=== PATIENT | female | born 1955 | race Caucasian/White ===

== ENCOUNTER 2017-10-05 14:00 | Outpatient (RCR) | payer OTHER, SELFPAY | END 2017-10-05 14:01 | disposition home or self-care (01) | LOC: PT 14:00 | PROVIDERS: Family Provider Family Medicine; Visit Provider Orthopaedic Surgery | DX: M16.11 Unilateral primary osteoarthritis, right hip (principal) | CPT/HCPCS: 97110; 97112 ==

== ENCOUNTER 2017-10-07 15:32 | Emergency (ER) | payer OTHER, SELFPAY ==
[2017-10-07] VITALS (10 sets, daily range): BP systolic 123–154; BP diastolic 74–94; PULSE 56–87; RESP 16–18; TEMP 36.8; O2SAT 95–100; BMI 29.0
--- NOTE | 2017-10-07 15:57 | HMH.EDGENADL ---
ED Disposition Clinical Impression: Dislocation of hip prosthesis Qualifiers: Encounter type: initial encounter Qualified Code(s): T84.029A - Dislocation of unspecified internal joint prosthesis, initial encounter; Z96.649 - Presence of unspecified artificial hip joint Disposition: Xfer Short-Term Hosp Condition on Discharge: Good Referrals: Santiago Mathews MD [Primary Care Provider] - - Critical Care Critical Care Time: No Attestation: On 10/07/17, the high probability of a clinically significant, sudden or life threatening deterioration of the following system(s) required my full and direct attention, intervention and personal management. The time I documented below is in addition to time spent performing reported procedures but includes the following listed in this critical care notation. Medical Decision Making Vital Signs: 10/07/17 15:32 10/07/17 16:56 10/07/17 17:13 Temperature 98.2 F Temperature Source Oral Pulse Rate [Right Radial] 76 68 70 Respiratory Rate 16 16 18 Blood Pressure [Right Arm] 130/75 138/74 154/86 Blood Pressure Mean [Right Arm] 93 95 108 Blood Pressure Source [Right Arm] Automatic Cuff Automatic Cuff Blood Pressure Position [Right Arm] Supine Supine 02 Sat by Pulse Oximetry 95 96 98 Oxygen Delivery Method Room Air Room Air Nasal Cannula Oxygen Flow Rate (LPM) 2 10/07/17 17:17 10/07/17 17:20 10/07/17 17:25 Temperature Temperature Source Pulse Rate [Right Radial] 87 78 80 Respiratory Rate 16 16 18 Blood Pressure [Right Arm] 150/83 150/80 148/88 Blood Pressure Mean [Right Arm] 105 103 108 Blood Pressure Source [Right Arm] Automatic Cuff Automatic Cuff Automatic Cuff Blood Pressure Position [Right Arm] Supine Supine Supine 02 Sat by Pulse Oximetry 100 100 Oxygen Delivery Method Non-Rebreather Nasal Cannula Nasal Cannula Oxygen Flow Rate (LPM) 2 2 10/07/17 17:30 10/07/17 17:45 10/07/17 17:46 Temperature Temperature Source Pulse Rate [Right Radial] 80 65 56 L Respiratory Rate 18 18 16 Blood Pressure [Right Arm] 145/88 145/94 145/94 Blood Pressure Mean [Right Arm] 107 111 111 Blood Pressure Source [Right Arm] Automatic Cuff Automatic Cuff Blood Pressure Position [Right Arm] Supine Supine 02 Sat by Pulse Oximetry 98 99 Oxygen Delivery Method Nasal Cannula Nasal Cannula Oxygen Flow Rate (LPM) 2 2 Orders (Tests/Meds): ED MEDICATIONS Generic Name Dose Route Start Last Admin Trade Name Freq PRN Reason Stop Dose Admin Sodium Chloride 1,000 mls @ 500 mls/hr 10/07/17 16:45 Sod Chlor 0.9% 1000ml Bag IV 11/06/17 16:44 .Q2H ABDIEL Ketamine HCl 25 mg 10/08/17 17:17 Ketamine 500mg/10ml Vial IV 10/08/17 17:18 DAILY ONE Discontinued Medications Generic Name Dose Route Start Last Admin Trade Name Freq PRN Reason Stop Dose Admin Ketamine HCl 50 mg 10/08/17 17:13 Ketamine 500mg/10ml Vial IV 10/08/17 17:14 DAILY ONE Morphine Sulfate 4 mg 10/07/17 15:50 10/07/17 16:07 Morphine 4mg/Ml Syringe IV 10/07/17 15:51 4 mg ONCE ONE Administration Ondansetron HCl 4 mg 10/07/17 15:50 10/07/17 16:07 Zofran 4mg/2ml Vial IV 10/07/17 15:51 4 mg ONCE ONE Administration ORDERS Category Date Time Status Hip XR right minimum 2 views [XR hip RT 2-3V w/pelvis] Exams 10/07/17 17:28 Stop Req Stat CMP [Comprehensive Metabolic Panel] Stat Lab 10/07/17 18:03 Ordered Complete Blood Count Auto Diff Stat Lab 10/07/17 18:03 Ordered - Radiology Data #2 Image(s): Hip Image Reviewed: Yes I reviewed the patient's radiology results Dislocated prosthesis Post x-ray post reduction attempt: Unsuccessful reduction attempt - Sagar Inquiry Pt receiving controlled substance: Yes Sagar was queried for this patient: No Reason not queried -: Emergent pt cond-no time Risks and benefits of using a controlled substance: were not discussed with pt by me Medical Decision Making Narrative:
--- NOTE | 2017-10-07 16:00 | ED_ITS ---
ED Disposition Clinical Impression: Dislocation of hip prosthesis Qualifiers: Encounter type: initial encounter Qualified Code(s): T84.029A - Dislocation of unspecified internal joint prosthesis, initial encounter; Z96.649 - Presence of unspecified artificial hip joint Disposition: Xfer Short-Term Hosp Condition on Discharge: Good Referrals: Santiago Mathews MD [Primary Care Provider] - - Critical Care Critical Care Time: No Attestation: On 10/07/17, the high probability of a clinically significant, sudden or life threatening deterioration of the following system(s) required my full and direct attention, intervention and personal management. The time I documented below is in addition to time spent performing reported procedures but includes the following listed in this critical care notation. Medical Decision Making Vital Signs: 10/07/17 15:32 10/07/17 16:56 10/07/17 17:13 Temperature 98.2 F Temperature Source Oral Pulse Rate [Right Radial] 76 68 70 Respiratory Rate 16 16 18 Blood Pressure [Right Arm] 130/75 138/74 154/86 Blood Pressure Mean [Right Arm] 93 95 108 Blood Pressure Source [Right Arm] Automatic Cuff Automatic Cuff Blood Pressure Position [Right Arm] Supine Supine 02 Sat by Pulse Oximetry 95 96 98 Oxygen Delivery Method Room Air Room Air Nasal Cannula Oxygen Flow Rate (LPM) 2 10/07/17 17:17 10/07/17 17:20 10/07/17 17:25 Temperature Temperature Source Pulse Rate [Right Radial] 87 78 80 Respiratory Rate 16 16 18 Blood Pressure [Right Arm] 150/83 150/80 148/88 Blood Pressure Mean [Right Arm] 105 103 108 Blood Pressure Source [Right Arm] Automatic Cuff Automatic Cuff Automatic Cuff Blood Pressure Position [Right Arm] Supine Supine Supine 02 Sat by Pulse Oximetry 100 100 Oxygen Delivery Method Non-Rebreather Nasal Cannula Nasal Cannula Oxygen Flow Rate (LPM) 2 2 10/07/17 17:30 10/07/17 17:45 10/07/17 17:46 Temperature Temperature Source Pulse Rate [Right Radial] 80 65 56 L Respiratory Rate 18 18 16 Blood Pressure [Right Arm] 145/88 145/94 145/94 Blood Pressure Mean [Right Arm] 107 111 111 Blood Pressure Source [Right Arm] Automatic Cuff Automatic Cuff Blood Pressure Position [Right Arm] Supine Supine 02 Sat by Pulse Oximetry 98 99 Oxygen Delivery Method Nasal Cannula Nasal Cannula Oxygen Flow Rate (LPM) 2 2 Orders (Tests/Meds): ED MEDICATIONS Generic Name Dose Route Start Last Admin Trade Name Freq PRN Reason Stop Dose Admin Sodium Chloride 1,000 mls @ 500 mls/hr 10/07/17 16:45 Sod Chlor 0.9% 1000ml Bag IV 11/06/17 16:44 .Q2H ABDIEL Ketamine HCl 25 mg 10/08/17 17:17 Ketamine 500mg/10ml Vial IV 10/08/17 17:18 DAILY ONE Discontinued Medications Generic Name Dose Route Start Last Admin Trade Name Freq PRN Reason Stop Dose Admin Ketamine HCl 50 mg 10/08/17 17:13 Ketamine 500mg/10ml Vial IV 10/08/17 17:14 DAILY ONE Morphine Sulfate 4 mg 10/07/17 15:50 10/07/17 16:07 Morphine 4mg/Ml Syringe IV 10/07/17 15:51 4 mg ONCE ONE Administration Ondansetron HCl 4 mg 10/07/17 15:50 10/07/17 16:07
--- NOTE | 2017-10-07 16:08 | XR_ITS ---
XR hip RT 2-3V w/pelvis HISTORY: Patient fell likely dislocated ITS.REASON: possible disloc prosthesis ORDERING PHYSICIAN: Magnus Morton MD PATIENT AGE: 62 years COMPARISON: 07/19/2017 FINDINGS: Bilateral bipolar prostheses are present. The right femoral component of the prosthesis is dislocated anteriorly and superiorly out of the acetabular cup. No obvious fracture. IMPRESSION: Anterior and superior dislocation of the femoral component of the right hip bipolar prosthesis
--- NOTE | 2017-10-07 17:23 | XR_ITS ---
XR pelvis 1-2V HISTORY: Follow-up dislocated prosthesis ITS.REASON: f/u disloc redx attempt ORDERING PHYSICIAN: Magnus Morton MD PATIENT AGE: 62 years COMPARISON: Same day FINDINGS: AP view of the pelvis shows persistent dislocation of the right femoral prosthesis. Left dural prosthesis is unremarkable. IMPRESSION: Persistent dislocated right femoral prosthesis
--- NOTE | 2017-10-07 17:47 | PC.NURSE ---
Attempted to reduce Rt hip per Dr Gomez, Maxx RN and paramedics X2. Pt sedated with 50mg of Ketamine IV. Crash cart at . Unable to reduce Rt hip. Pt tolerated procedure well, vs remained stable. Pt alert and answering questions apropriately. Pt made aware of inability to reduce hip and asked if she would like to see ortho here or transfer to .
--- NOTE | 2017-10-07 18:00 | PC.NURSE ---
PAGING DR QUARLES OR SOMEONE FROM THE GROUP-PER JOHN
--- NOTE | 2017-10-07 18:05 | PC.NURSE ---
SHON SIMS speaking with Dr. Redding at [facility]
--- NOTE | 2017-10-07 18:18 | PC.NURSE ---
MD LEXI GRAY WITH DR PAIZ
[2017-10-07 18:32] LABS: Basophils % 0.2 % (0.1-2.0); Eosinophils # 0.1 K/mm3 (0.0-0.4); Eosinophils % 0.9 % (0.1-12.0); Hematocrit 38.7 % (37.0-47.0); Hemoglobin 12.3 g/dL (12.2-16.2); Lymphocytes # 1.4 K/mm3 (0.7-4.5); Lymphocytes % 20.4 K/mm3 (10-50); Mean Corpuscular HGB Conc 31.6 g/dL (31.8-35.4); Mean Corpuscular Hemoglobin 28.5 pg (27.0-31.2); Monocytes # 0.3 K/mm3 (0.1-1.0); Monocytes % 4.4 % (1.7-9.3); Neutrophils # 4.9 K/mm3 (1.8-7.8); Neutrophils % 74.1 % (37.0-80.0); Platelet Count 258 K/mm3 (142-424); Red Cell Distribution Width 13.2 % (11.5-17.5); White Blood Count 6.6 K/mm3 (4.8-10.8)
[2017-10-07 18:45] LABS: Alanine Aminotransferase 21 U/L (12-78); Albumin Level 3.2 gm/dL (3.4-5.0); Alkaline Phosphatase 95 U/L (46-116); Anion Gap 11.6 mEq/L (5-15); Aspartate Amino Transferase 15 U/L (15-37); Bilirubin,Total 0.2 mg/dL (0.2-1.0); Blood Urea Nitrogen 10 mg/dL (7-18); Calcium 8.1 mg/dL (8.5-10.1); Carbon Dioxide 26 mmol/L (21.0-32.0); Chloride 108 mmol/L (98-107); Creatinine Clearance Estimated 76 mL/min (0-300); Creatinine,Serum 0.78 mg/dL (0.55-1.02); Estimated Glomerular Filt Rate 75 ml/min (>60); GFR (African American) 90 ML/MIN (>60); Globulin 3.3 gm/dl (1.3-3.2); Glucose 110 mg/dL (74-106); Potassium 3.6 mmoL/L (3.5-5.1); Sodium 142 mmol/L (136-145); Total Protein,Serum 6.5 gm/dL (6.4-8.2)
--- NOTE | 2017-10-07 18:45 | PC.NURSE ---
Report called to CHOLO Sebastian on Bone and joint unit at [facility]. Dr Francois and Minda are accepting.
== END 2017-10-07 19:16 | disposition short-term general hospital (02) ==
PROVIDERS: Emergency Provider Emergency Medicine; Family Provider Family Medicine; PCP Family Medicine
DX: T84.029A Dislocation of unspecified internal joint prosthesis, initial encounter (principal); Z96.649 Presence of unspecified artificial hip joint
CPT/HCPCS: 72170; 73502; 80053; 85025; 96365; 96374; 96375; 96376; 99285; J2405

== ENCOUNTER 2017-11-09 13:00 | Outpatient (RCR) | payer OTHER, SELFPAY | END 2017-11-09 13:01 | disposition home or self-care (01) | LOC: PT 13:00 | PROVIDERS: Family Provider Family Medicine; PCP Family Medicine; Visit Provider Orthopaedic Surgery | DX: S73.004A Unspecified dislocation of right hip, initial encounter (principal) | CPT/HCPCS: 97010; 97014; 97110; 97116; G0283 ==

== ENCOUNTER → 2018-11-26 08:13 | Outpatient (CLI) | payer OTHER, SELFPAY ==
--- NOTE | 2018-11-26 08:17 | MM_ITS ---
MM Dig screening mamm BI w/CAD ORDERING PHYSICIAN : Santiago Mathews MD PATIENT AGE: 63 years GENDER: Female COMPARISON: July 2008 film screen study Patient doesn't recall where more recent mammogram was performed. If priors mammogram scant be found and available would be helpful for comparison to improve our screening diagnosis INDICATION: Routine SCREENING mammogram. No hormones no new complaints noncontributory family history TECHNIQUE: Standard CC and MLO images were obtained. R2 CAD reviewed. FINDINGS: Lower density breast with minimal residual fibroglandular elements and moderate generalized fatty replacement . No focal lesion. . No dominant mass nor suspicious calcifications. There is been significant regression of fibroglandular elements of progressive fatty replacement since July 2008 previous film screen studies. RIGHT BREAST:No focal areas of significant concern. Scattered minimal areas of asymmetry on one view dissipate on the other. Scattered benign small round dense calcifications Central right breast have developed in the interval. Not of concern. LEFT BREAST:No focal areas of significant concern. Scattered minimal areas of asymmetry on one view dissipate on the other. IMPRESSION: . No areas of significant concern in either breast. No malignancy evident radiographically. Bilateral follow-up in one year recommended. BI-RADS Category: 2 Benign Finding(s) RECOMMENDED FOLLOW-UP: 1YR 1 YEAR FOLLOW-UP (A letter has been sent to the patient regarding results of the study.)
== END ==
PROVIDERS: PCP Family Medicine; Visit Provider Family Medicine
DX: Z12.31 Encounter for screening mammogram for malignant neoplasm of breast (principal)
CPT/HCPCS: 77067

== ENCOUNTER 2019-04-26 09:30 | Outpatient (RCR) | payer OTHER, SELFPAY | END 2019-04-26 09:35 | disposition home or self-care (01) | LOC: PT 09:30 | PROVIDERS: Visit Provider Orthopaedic Surgery | DX: M25.552 Pain in left hip (principal); M70.72 Other bursitis of hip, left hip | CPT/HCPCS: 97010; 97012; 97014; 97033; 97035; 97110; 97163; 97164; G0283 ==

== ENCOUNTER 2019-11-26 14:57 | Emergency (ER) | payer MEDICARE, SELFPAY ==
[2019-11-26] VITALS (7 sets, daily range): BP systolic 140–160; BP diastolic 77–100; PULSE 62–85; RESP 18–20; TEMP 36.8–36.9; O2SAT 97–100; BMI 28.8
--- NOTE | 2019-11-26 15:06 | XR_ITS ---
PROCEDURE: XR HIP RT 2-3V W/PELVIS Patient Age:64Y CLINICAL INDICATION: DISLOCATION twisted body and then heard pop with dislocation at right hip. Right hip pain . History of recurrence right hip dislocation COMPARISON: PEL1V XR pelvis 1-2V from 10/07/2017 HIPCMRT XR hip RT 2-3V w/pelvis from 10/07/2017 FINDINGS: RIGHT HIP 2 VIEW: AP AND CROSS-TABLE LATERAL AP PELVIS-SINGLE VIEW These performed studies were reviewed, and reported together Bilateral hip replacements. Bipolar hip prosthesis at both both hips again evident as seen on multiple previous studies. However the rim of the right acetabular cup appears to have a different appearance versus 10/07/2017 pelvis and hip studies. There appears to be additional collar or ring about the rim of the right acetabular cup on today's image. This requires clinical correlation as I suspect it may have been revised since September 2017 the In either case on today's study there is again noted to be dislocation at the right hip . The prosthetic femoral head has again dislocated superiorly and anteriorly relative to the acetabular cup component of the prosthesis.. No acute fracture is evident at the osseous pelvis nor proximal femur. The medullary stem remains stable and intact Suspect urinary bladder is moderately distended IMPRESSION: Bilateral bipolar hip replacements/prostheses With dislocation of right hip prosthesis. Anterior superior dislocation of femoral head component vs acetabular cup component again evident Dictated by: Harsh Mcnally MD 11/27/2019 12:54 Electronically signed by Harsh Mcnally MD in [place] 11/27/2019 12:54
--- NOTE | 2019-11-26 15:25 | PC.NURSE ---
TIME OUT PROCEDURE PERFORM, JOSE EMMANUEL, JOHN EMMANUEL, AND JAY SIMS PRESENT AT BEDSIDE TO PERFORM REDUCTION OF DISLOCATION OF THE RIGHT HIP.
--- NOTE | 2019-11-26 15:30 | PC.NURSE ---
MD PUSHED A TOTAL OF 120MG OF PROPOFOL WITH 2 RN AT BEDSIDE.
--- NOTE | 2019-11-26 15:36 | XR_ITS ---
PROCEDURE: XR PELVIS 1-2V Patient Age:64Y CLINICAL INDICATION: POST REDUCTION OF RIGHT HIP Right hip pain recurring dislocation right hip prosthesis history COMPARISON: [id number] HIP RT 1-VIEW W/PELVIS IF PERF from 07/12/2017 [id number] HIP RT 2-3V W/PELVIS IF PERFOR from 07/19/2017 PEL1V XR pelvis 1-2V from 10/07/2017 HIPCMRT XR hip RT 2-3V w/pelvis from 10/07/2017 XR HIP RT 2-3V W/PELVIS from 11/26/2019 TECHNIQUE: XR Pelvis AP View FINDINGS: . SINGLE AP VIEW PELVIS: Accompanying history on this study states' Post Reduction Right Hip. ' However this single-view post reduction AP pelvis shows persistent dislocation of the femoral head component, dislocated from the acetabular component of this right hip prosthesis... I would note the acetabular component appears slightly different than 2018 exam and I suspect it may have been surgically revised in the interval-when compared to previous available September 2017 studies.. Today we see what appears to be an additional collar like ring about the inferior margin of the acetabular component-which may make the femoral head component more difficult to reduce .. Correlation with surgical history required A moderate distended bladder also incidentally noted Thus again to summarize there is persistent anterior and superior dislocation of the femoral component of the right hip prosthesis on this labeled post reduction image. IMPRESSION: Persistent dislocation of the femoral head component from the right hip prosthesis acetabular component. On this labeled ' post reduction film ' Note additional comments within body of report Dictated by: Harsh Mcnally MD 11/26/2019 15:54 Electronically signed by Harsh Mcnally MD in [place] 11/26/2019 15:54
--- NOTE | 2019-11-26 15:36 | PC.NURSE ---
CONFIRMED HIP WAS BACK IN PLACE PER XRAY
--- NOTE | 2019-11-26 15:42 | PC.NURSE ---
PT IS NOW AWAKE AND ALERT SPEAKING TO STAFF.
--- NOTE | 2019-11-26 16:13 | PC.NURSE ---
placed call to [facility] orthopedics for Dr Harris at [facility]
--- NOTE | 2019-11-26 16:30 | PC.NURSE ---
speaking with Dr Arora.
--- NOTE | 2019-11-26 16:34 | PC.NURSE ---
speaking with dr Johnson from [facility]
--- NOTE | 2019-11-26 16:35 | PC.NURSE ---
SPEAKING WITH DR PAIZ AT [facility]
--- NOTE | 2019-11-26 16:44 | HMH.EDLOEX ---
ED Disposition Clinical Impression: Dislocation of hip, right, closed Disposition: Xfer Short-Term Hosp Condition on Discharge: Good Instructions: DI for Moderate Sedation Additional Instructions: Patient is being transferred to [facility] under Dr. Perla the hospitalist. Referrals: Provider,Referral, [Primary Care Provider] - - Critical Care Critical Care Time: No Attestation: On 11/26/19, the high probability of a clinically significant, sudden or life threatening deterioration of the following system(s) required my full and direct attention, intervention and personal management. The time I documented below is in addition to time spent performing reported procedures but includes the following listed in this critical care notation. Medical Decision Making - Medical Records Medical records reviewed: Yes: I reviewed the patient's medical records. - Sagar Inquiry Pt receiving controlled substance: No Vital Signs: 11/26/19 15:00 11/26/19 15:25 11/26/19 15:30 Temperature 98.4 F Temperature Source Oral Pulse Rate [Right Radial] 82 70 85 Respiratory Rate 20 20 20 Blood Pressure [Right Arm] 141/87 H 160/90 H 150/95 H Blood Pressure Mean [Right Arm] 105 113 113 Blood Pressure Source [Right Arm] Automatic Cuff Blood Pressure Position [Right Arm] Supine 02 Sat by Pulse Oximetry 97 100 100 Oxygen Delivery Method Room Air Nasal Cannula Nasal Cannula Oxygen Flow Rate (LPM) 2 2 11/26/19 15:40 11/26/19 15:45 11/26/19 15:51 Temperature Temperature Source Pulse Rate [Right Radial] 68 64 62 Respiratory Rate 20 20 Blood Pressure [Right Arm] 148/100 H 140/85 140/98 H Blood Pressure Mean [Right Arm] 116 103 112 Blood Pressure Source [Right Arm] Automatic Cuff Blood Pressure Position [Right Arm] 02 Sat by Pulse Oximetry 100 100 100 Oxygen Delivery Method Nasal Cannula Nasal Cannula Nasal Cannula Oxygen Flow Rate (LPM) 2 2 - Lab Data Lab results reviewed: Yes: I reviewed the patient's lab results. Orders (Tests/Meds): ED MEDICATIONS Generic Name Dose Route Start Last Admin Trade Name Freq PRN Reason Stop Dose Admin Sodium Chloride 1,000 mls @ 999 mls/hr 11/26/19 15:45 11/26/19 15:25 Sod Chlor 0.9% 1000ml Bag IV 11/26/19 16:45 999 mls/hr .Q1H1M ABDIEL Administration Discontinued Medications Generic Name Dose Route Start Last Admin Trade Name Florentinq PRN Reason Stop Dose Admin Ondansetron HCl 4 mg 11/26/19 15:40 11/26/19 15:25 Zofran 4mg/2ml Vial IV 11/26/19 15:41 4 mg ONCE ONE Administration Propofol 120 mg 11/26/19 15:38 11/26/19 15:25 Diprivan 10mg/Ml 20ml Vial IV 11/26/19 15:39 120 mg ONCE ONE Administration ORDERS Category Date Time Status XR hip RT 2-3V w/pelvis Stat Exams 11/26/19 15:06 Taken - Radiology Data #1 Image(s): Hip Preliminary Findings: Abnormal (Anterior superior dislocation of the right hip) #2 Image(s): Hip Preliminary Findings: Abnormal (Postreduction film still shows anterior superior dislocation) Medical Decision Narrative: Patient's orthopedic that have done both of the hip replacements bilateral in the patient and also the revision and also reduce the previous anterior dislocation was Dr. Richmond Stanley at [facility] orthopedics at [facility]. I did speak to Dr. Morales and he stated that she needs general anesthesia to put the hip back into place. Patient be transferred subsequently to [facility] in [place]. Lower Extremity Injury HPI - General Chief Complaint: Extremity Injury, Lower Stated Complaint: right hip fx Time Seen by Provider: 11/26/19 16:00 Mode of Arrival: EMS Limitations: No Limitations Description of Symptoms (Recalled from ER Triage Doc. by RN): PT BROUGHT TO ED WITH EXTERNAL ROTATION OF THE RT HIP. PT DENIES FALL. PT STATES THAT SHE STOOD UP FROM THE COMMODE AND SHE FELT HER HIP POP OUT OF PLACE. PT REPORTS BILATERAL HIP REPLACEMENTS AND ADVISES THAT SHE HAS MCCORMACK
--- NOTE | 2019-11-26 16:45 | PC.NURSE ---
DR PAIZ AT [facility] ACCEPTED PT, ADVISED THEY WILL CALL US BACK WITH A BED
--- NOTE | 2019-11-26 17:52 | PC.NURSE ---
REPORT CALL[facility] TO A[facility] NOTIFIED OF TRANSPORT
== END 2019-11-26 18:27 | disposition short-term general hospital (02) ==
PROVIDERS: Emergency Provider Family Medicine
DX: S73.004A Unspecified dislocation of right hip, initial encounter (principal); X50.9XXA Other and unspecified overexertion or strenuous movements or postures, initial encounter; Y92.012 Bathroom of single-family (private) house as the place of occurrence of the external cause
CPT/HCPCS: 27265; 72170; 73502; 96365; 96375; 99285; J2405

== ENCOUNTER 2020-03-15 10:00 | Outpatient (RCR) | payer MEDICARE, SELFPAY | END 2020-03-15 10:05 | disposition home or self-care (01) | LOC: PT 10:00 | PROVIDERS: Visit Provider Orthopaedic Surgery | DX: M25.551 Pain in right hip (principal); Z96.641 Presence of right artificial hip joint | CPT/HCPCS: 97010; 97014; 97033; 97110; 97112; 97116; 97163; 97164; G0283 ==

== ENCOUNTER → 2021-04-24 11:14 | Outpatient (CLI) | payer MEDICARE, SELFPAY | PROVIDERS: PCP Family Medicine; Visit Provider Nurse Practitioner | DX: Z20.822 Contact with and (suspected) exposure to COVID-19 (principal) | CPT/HCPCS: C9803; U0003; U0005 ==

== ENCOUNTER 2025-06-19 10:10 | Outpatient (CLI) | payer MEDICARE, SELFPAY ==
--- OUTSIDE RECORDS SUMMARY | 2025-05-30 04:30 | XMS_ITS ---
Author Organization [facility] Address [address] [facility] [address] [place], [place] [id number] Care Team Providers Care Checker Product Design Name Role Phone Toni Eugene Primary Care Provider Mayra Mathews Unavailable [phone] Allergies No Known Allergies Results Component Value Reference Range Notes CBC Venipuncture (in house) Reviewed date:06/01/2025 01:01:55 PM Interpretation: Performing Lab: Notes/Report: wbc 4.9 3.5 - 10 lymph 19.2% 15 - 50 mid 7.3% 2 - 15 gran 73.5% 35 - 80 rbc 4.64 3.5 - 5.5 hgb 14.6 11.5 - 16.5 hct 43.6 35 - 55 mcv 94.1 75 - 100 mch 31.5 25 - 35 mchc 33.5 31 - 38 platlet 291 100 - 400 P-Comprehensive Metabolic Pa jaycee (CMP) Reviewed date:06/01/2025 01:01:55 PM Interpretation:normal Performing Lab: Notes/Report: Test performed by [facility] , [address], [place] [address] Karlos Toure MD, Pick Up Man CLIA: [id number] Sodium 139 135-145 mmol/L Potassium 4.5 3.5-5.3 mmol/L Chloride 103 97-108 mmol/L CO2 26 20-32 mmol/L Glucose 92 65-99 mg/dL BUN 11 8-23 mg/dL Creatinine 0.93 0.50-1.00 mg/dL Calcium 9.3 8.6-10.4 mg/dL eGFR by Creatinine 66 >59 mL/min/1.73m2 Protein 6.3 6.0-8.3 g/dL Albumin 4.1 3.5-5.3 g/dL Alkaline Phosphatase 76 35-121 IU/L ALT (SGPT) 17 <5-47 IU/L AST (SGOT) 16 <5-40 IU/L Bilirubin, Total 0.4 <0.2-1.2 mg/dL A/G Ratio 1.9 1.1-2.5 P-Lipid Panel Reviewed date:06/01/2025 01:01:55 PM Interpretation:LDL 156 Performing Lab: Notes/Report: Test performed by [facility], [address] , [facility], [place] [address] Karlos Toure MD, Pick Up Man CLIA: [id number] Lipid Panel Footnote See Below *Based on optimal reference values. Please refer to the DOS for additional information regarding diagnostic lipid reference ranges, patient management based on the recently updated lipid guidelines ([place] College [employer]iology/[place] Heart Association Task Force on Clinical Practice Guidelines (2018), and pediatric diagnostic lipid reference values (<18 years old). Total Cholesterol 256 <200 mg/dL Triglycerides 71 <150 mg/dL HDL Cholesterol 86 >50 mg/dL Total Cholesterol / HDL Ratio* 2.98 <3.99 Rati o Non-HDL Cholesterol 170 <130 mg/dL LDL Cholesterol (Calculation) 156 <100 mg/dL LDL / HDL Ratio* 1.81 <1.99 Ratio LDL Cholesterol Patient History Test Date: 05/30/2025 LDL Results: 156 Units: mg/dL % Change: - REASON FOR VISIT check up, Needs labs, mammogram, bone density screening, colon cancer screening, Tdap, shingles, pneumovax, & flu vaccines Medications Medication SIG (Take, Route, Frequency, Duration) Notes Start Date End Date Status Aspirin 81 MG 1 tab(s) orally once a day Active Immunizations Vaccine Route Administration Date Status Comme nts Fluzone High Dose (65yr and older) IM Intramuscular 05/30/2025 Administered Prevnar (PCV20) IM Intramuscular 05/30/2025 Administered Problems Problem Type SNOMED Code ICD Code Onset Dates Problem Status W/U Status Risk Notes Problem Dyslipidemia (008581497) Dyslipidemia (E78.5) Active confirmed Vital Signs Weight 170.2 lbs 05/30/2025 Blood pressure systolic 130 mm Hg 05/30/20 25 Blood pressure diastolic 78 mm Hg 025 Heart Rate 67 /min 05/30/2025 Height 66 in 05/30/2025 BMI 27.47 kg/m2 05/30/2025 Encounters Encounter Location Date Provider Diagnosis [facility] [address] [facility] [address] [place] [id number] 05/30/2025 Mayra Mathews Dyslipidemia E78.5 ; Encounter for immunization Z23 ; Breast cancer screening Z12.39 ; Colon cancer screening Z12.11 and BMI 27.0-27.9,adult Z68.27 Assessments Encounter Date Diagnosis (ICD Code) Assessment Notes Treatment Notes Treatment Clinical Notes Section Notes 05/30/2025 Dyslipidemia (ICD-10 - E78.5) 05/30/2025 Encounter for immunization (ICD-10 - Z23) 05/30/2025 Breast cancer screening (ICD-10 - Z12.39) 05/30/2025 Colon cancer screening (ICD-10 - Z12.11) 05/30/2025 BMI 27.0-27.9,adult (ICD-10 - Z68.27) Plan Of Treatment Pending Test Test Name Order Date Mammogram 05/30/2025 Cologuard 05/30/2025 Next Appt Details Follow Up: 6 Months, Reason: Progress Notes * Cynthia DIAZeDOB:[birth year] (69 yo F)Acc No.[id number]:05/30/2025 Progress Notes Patient: Shantelle SOSA Provider: Mayra Mathews M.D. :1955 A ge:69 Y S ex:Female Date:05/30/2025 Address:[id number] Pcp:Toni Eugene Subjective: * Chief Complaints: * 1 . Check up. 2. Needs labs, mammogram, bone density screening, colon cancer screening, Tdap, shingles, pneumovax, & flu vaccines. * HPI: H PI: She comes in for physical exam after a long absence from the practice. She has generally been healthy and has not needed medical care since her last office visit. Generally she feels well with no specific complaints today. She has not kept up with health maintenance issues and is due for colon cancer screening and mammogram. * ROS: D ERMATOLOGY: no R ya. n o H justin. G ASTROENTEROLOGY: no N ausea. n o V omiting. n o D iarrhea.? U ROLOGY: no B lood in urine. n o F requent urination. ? * Medical History: T IA, Patent Foramen Ovale, DJD. * Surgical History: t ubal ligation 1981, bunionectomy 2001, L4-L5 fusion 1987, right hip replacement 2009, repair of PFO - [facility] 01/2014, left hip replacement 06/2017, right hip replacement 08/2017. * Hospitalization/Major Diagno stic Procedure: s ee above , [facility]-slurred speech, decrease in focus, TIA 01/03/14, [facility]-heart cath 01/21. * Family History: F ather: , lung cancer. M other: , bone cancer. P aternal Grand Father: . P aternal Grand Mother: . M aternal Grand Father: . M ateorry Grand Mother: , hypertension, heart disease. S iblings: alive. 1 sister(s) . 2 son(s) - healthy. . 1 Brother related to cancer, also presently has a brother now that has been diagnosed with cancer. * Social History: C URRENT TOBACCO USE S moking Status: Patient does NOT smoke. C affeine: yes, frequency: 1-2 cups a day of coffee. Home smoke detector use: yes. Marital Status: . Past smoking status: no. Alcohol: No. * Medications: T aking Aspirin 81 MG Tablet Delayed Release 1 tab(s) orally once a day , Discontinued Calcium 500 MG 1 TAB ONCE DAILY , Notes to Pharmacist: *Please review and pick correct strength-formulation from [employer] options. If intended option is not shown, discontinue and re-order from Quick Search*, Discontinued Vitamin D3 25 MCG (1000 UT) Capsule 1 cap(s) orally once a day , Discontinued Alendronate Sodium 70 MG Tablet 1 tab(s) orally once a week , Medication List reviewed and reconciled with the patient * Allergies: N .K.D.A. Objective: * Vitals: W t: 170.2, Temp: 97,7, BP: 130/78, HR: 67, Nurse: pe, Ht: 66, BMI:27.47. * Examination: G eneral Examination: General Appearance: N AD. H EENT: s clera and conjunctiva clear, PERRLA, TM's normal, translucent. O ral cavity: n o lesions, mucosa moist and WNL, no erythema. N ching: s upple, no lymphadenopathy. H eart: R SR. L ungs: clear to auscultation. N eurologic Exam: n ormal cranial nerves II-XII sensory & motor WNL, DTR 2 plus. . S kin: n ormal, no rash. E xtremities: n o leg edema. Assessment: * Assessment: 1. D yslipidemia - E78.5 (Primary) 2 . E ncounter for immunization - Z23? 3. B reast cancer screening - Z12.39 4 . C olon cancer screening - Z12.11 5 . B WA 27.0-27.9,adult - Z68.27 Plan: * Treatment: Value Reference Range A /G Ratio 1.9 1.1-2.5 - * A lbumin 4.1 3.5-5.3 - g/dL * A lkaline Phosphatase 76 35-121 - IU/L * A LT (SGPT) 17 <5-47 - IU/L * A ST (SGOT) 16 <5-40 - IU/L * B ilirubin, Total 0.4 <0.2-1.2 - mg/dL * B UN 11 8-23 - mg/dL * C alcium 9.3 8.6-10.4 - mg/dL * C hloride 103 97-108 - mmol/L * C O2 26 20-32 - mmol/L * C reatinine 0.93 0.50-1.00 - mg/dL * G lucose 92 65-99 - mg/dL * P otassium 4.5 3.5-5.3 - mmol/L * S odium 139 135-145 - mmol/L * P rotein 6.3 6.0-8.3 - g/dL * e GFR by Creatinine 66 >59 - mL/min/1.73m2 * Mayra Mathews 06/01/2025 01:01:44 PM EDT > See phone encounter ?LAB: P-Lipid Panel (Collection Date & Time - 05/30/2025 09:14 AM)?LDL 156* Value Reference Range C holesterol / HDL Ratio 2.98 <3.99 - Ratio * C holesterol 256 H <200 - mg/dL * H DL Cholesterol 86 >50 - mg/dL * L DL Cholesterol (Calculation) 156 H <100 - mg/d L * L DL/HDL Ratio 1.81 <1.99 - Ratio * N on-HDL Cholesterol 170 H <130 - mg/dL * T riglycerides 71 <150 - mg/dL * L ipid Panel Footnote See Below - * Mayra Mathews 06/01/2025 01:01:44 PM EDT > See phone encounter ?LAB: CBC Venipuncture (in house) (Collection Date & Time - 05/30/2025)* Value Reference Range w bc 4.9 3.5 - 10 * l ymph 19.2% 15 - 50 * m id 7.3% 2 - 15 * g ran 73.5% 35 - 80 * r bc 4.64 3.5 - 5.5 * h gb 14.6 11.5 - 16.5 * h ct 43.6 35 - 55 * m cv 94.1 75 - 100 * m ch 31.5 25 - 35 * m chc 33.5 31 - 38 * p latlet 291 100 - 400 * Angela Agosto 05/30/2025 12 :45:30 PM EDT > Mayra Mathews 06/01/2025 01:01:44 PM EDT > See phone encounter 2.?Breast cancer screening?Imaging: Mammogram* Mary Sheehan 05/30/2025 01: 39:27 PM EDT > faxed to [facility] Scheduling 3.?Colon cancer screening?LAB: Cologuard * Immunizations: Fluzone High Dose (65yr and older) : 0.5 mL (Route: Intramuscular) given by DEMETRIS Pérez , Electric Meter Installer Helper on Right Deltoid (Encounter for immunization) Prevnar (PCV20) : 0.5 mL (Route: Intramuscular) given by DEMETRIS Pérez , Electric Meter Installer Helper on Left Deltoid (Encounter for immunization) * Procedure Codes: G 2211 Complex e/[place] [address] CBC WITH AUTO DIFF, 92965 VENIPUNCT, ROUTINE*, G8420 BMI<30 AND >=22 CALC & DOCU, G8783 BP SCR PRFRM RCMDD DEFIND SCR INTVL, G8752 MOST RECENT SYSTOLIC BP < 140MM HG, G8754 MOST RECENT DIASTOLIC BP < 90MM HG, 3075F SYST BP GE 130 - 139MM HG, 3078F DIAST BP < 80 MM HG, 1036F TOBACCO NON-USER * Follow Up: 6 Months * Images: Drawin05/30/25 [facility] Billing Information: * Visit Code: 44091 Office Visit, New Pt., Level 3. * Procedure Codes: G2211 Complex e/[place]. [address] CBC WITH AUTO DIFF. 94439 VENIPUNCT, ROUTINE*. G8420 BMI<30 AND >=22 CALC & DOCU. G8783 BP SCR PRFRM RCMDD DEFIND SCR INTVL. G8752 MOST RECENT SYSTOLIC BP < 140MM HG. G8754 MOST RECENT DIASTOLIC BP < 90MM HG. 3075F SYST BP GE 130 - 139MM HG. 3078F DIAST BP < 80 MM HG. 1036F TOBACCO NON-USER. * Electronic signature of Mayra Mathews MD on 06/19/2025 at 10:15 AM EST Sign off status: Pending * Provider: Mayra Mathews M.D. Date: Generated for Marcos chou/Bev/Yashransmitting on: 08/19/2024 10:15 AM EST History and Physical Notes * Examination Category Sub-Category Detail Notes Category Not es General Examination HEENT: sclera and c onjunctiva clear, PERRLA, TM's normal, translucent Heart: RSR Lungs: clear to auscultatio n Extremities: no leg edema General Appearance: NAD Skin: normal, no rash Neurologic Exam: normal cranial nerve s II-XII sensory & motor WNL, DTR 2 plus. Neck: supple, no lymphaden opathy Oral cavity: no lesions, mucosa m oist and WNL, no erythema Chest:
--- NOTE | 2025-06-19 10:14 | MM_ITS ---
PROCEDURE INFORMATION: Exam: MG Bilateral Screening 3D Mammography Exam date and time: 06/19/2025 10:22 AM Age: 69 years old Clinical indication: Screening examination TECHNIQUE: Imaging protocol: Bilateral Screening tomosynthesis and 2D mammography including computer-aided detection (CAD) when performed. COMPARISON: 1. MG SCBI MM Dig screening mamm BI w/CAD 11/26/2018 8:39 AM 2. MG MM Digitiz Mammo [employer] Systems Security Assessment 07/25/2008 10:02 AM FINDINGS: MAMMOGRAPHY: Breast composition: The breasts are almost entirely fatty. Mass: None. Architectural distortion: None. Calcifications: No suspicious calcifications. Asymmetric density: None. Skin thickening: None. Axillary adenopathy: None. IMPRESSION: No mammographic evidence of malignancy. Annual screening is recommended unless otherwise clinically indicated. ASSESSMENT: BI-RADS Category 1: Negative.
--- OUTSIDE RECORDS SUMMARY | 2025-06-19 10:14 | XMS_ITS | Encounter Summary ---
Author Organization [employer] ([place], [place], [place], [place]) Address [address] [place] [address] Care Team Providers Care Hay Sorter Name Role Phone Unavailable Primary Care Provider Unavailabl e Encounter Details Date Type Department Care Team (Late st Contact Info) Description 11/26/2019 Transcribed Document [facility] [address] [place] [address] ProviderMaribel MD [facility] [place] [address] Social History Tobacco Use Types Packs/Day Years Used Date Smoking Tobacco: Never Assessed Comments Unknown Sex and Gender Information Value Date Recorded Sex Assigned at Not on file Legal Sex Female 4:40 PM CDT Gender Identity Not on file Sexual Orientation Not on file documented as of this encounter Miscellaneous Notes * Cerner Conversion Note - Historical ProviderMD - 11/26/2019 9:24 PM CDT Education-(VTE) / (DVT) Entered On: 11/27/2019 0:52 EDT Performed On: 11/26/2019 21:24 EDT by Lynne Costello RN Teaching/Learning Assessment Barriers To Learning : None evident Individuals Taught : Patient Readiness to Learn : Cooperative Readiness to Learn : Explanation Learning Style Preferences Patient : Verbal explanation Lynne Costello RN - 11/27/2019 0:51 EDT Education Topics: VTE/DVT Education Topics: VTE/DVT Activity Limitations/Expectations : Verbalizes understanding VTE/DVT prophylaxis : Verbalizes understanding Medications : Verbalizes understanding Encourage early ambulation : Verbalizes understanding Lynne Costello RN - 11/27/2019 0:51 EDT documented in this encounter Plan of Treatment Not on file documented as of this encounter Visit Diagnoses Not on filedocumented in this encounter
--- OUTSIDE RECORDS SUMMARY | 2025-06-19 10:14 | XMS_ITS | Encounter Summary ---
Author Organization [employer] ([place], [place], [place], [place]) Address [address] [place] [address] Care Team Providers Care Manager Filter Name Role Phone Unavailable Primary Care Provider Unavailabl e Encounter Details Date Type Department Care Team (Late st Contact Info) Description 11/26/2019 Transcribed Document [facility] [address] [place] [address] ProviderMaribel [place] [address] Social History Tobacco Use Types Packs/Day Years Used Date Smoking Tobacco: Never Assessed Comments Unknown Sex and Gender Information Value Date Recorded Sex Assigned at Not on file Legal Sex Female 4:40 PM CDT Gender Identity Not on file Sexual Orientation Not on file documented as of this encounter Miscellaneous Notes * Cerner Conversion Note - Maribel ProviderMD - 11/26/2019 7:39 PM CDT Meds to Bed Enrollment Entered On: 11/28/2019 12:38 EDT Performed On: 11/26/2019 19:39 EDT by Logan Plata CONGRESSIONAL REPRESENTATIVE LEAD Meds to Bed Enrollment Patient Enrollment Decision: : No/do not enroll in meds to bed program Reason for Declining Meds to Bed Program: : Other: NA Logan Plata CONGRESSIONAL REPRESENTATIVE LEAD - 11/28/2019 12:38 EDT documented in this encounter Plan of Treatment Not on file documented as of this encounter Visit Diagnoses Not on filedocumented in this encounter
--- OUTSIDE RECORDS SUMMARY | 2025-06-19 10:14 | XMS_ITS | Encounter Summary ---
Author Organization [employer] ([place], [place], [place], [place], [place]) Address [address] [place] [address] Care Team Providers Care Social Worker Psychiatric Name Role Phone Unavailable Primary Care Provider Unavailabl e Encounter Details Date Type Department Care Team (Late st Contact Info) Description 11/30/2019 Transcribed Document [facility] [address] [place] [address] ProviderMaribel MD [address] [place] [address] Social History Tobacco Use Types Packs/Day Years Used Date Smoking Tobacco: Never Assessed Comments Unknown Sex and Gender Information Value Date Recorded Sex Assigned at Not on file Legal Sex Female 4:40 PM CDT Gender Identity Not on file Sexual Orientation Not on file documented as of this encounter Miscellaneous Notes * Cerner Conversion Note - Historical ProviderMD - 11/30/2019 5:00 AM CDT Chart Check - Review Order Profile Entered On: 11/30/2019 4:41 EDT Performed On: 11/30/2019 5:00 EDT by Valerie Escobar RN Chart Check Powerplans Initiated/Discontinued as Appropriate : Yes All Active Orders Reviewed : Yes Valerie Escobar RN - 11/30/2019 4:41 EDT documented in this encounter Plan of Treatment Not on file documented as of this encounter Visit Diagnoses Not on filedocumented in this encounter
--- OUTSIDE RECORDS SUMMARY | 2025-06-19 10:14 | XMS_ITS | Clinical Summary ---
Author Organization [facility] Address [address] [id number] Care Team Providers Care Stabilizing Machine Operator Name Role Phone Santiago Mathews MD Primary Care Provider [phone] Family History Medical History Relation Name Comments Other cancer Father Other cancer Mother Relation Name Status Comments Father Mother Social History Tobacco Use Types Packs/Day Years Used Date Smoking Tobacco: Passive Smo ke Exposure - Never Smoker Alcohol Use Standard Drinks/Week Comments No 0 (1 standard drink = 0.6 oz pur e alcohol) Comments Unknown Sex and Gender Information Value Date Recorded Sex Assigned at Not on file Legal Sex Female 8:04 PM EDT Gender Identity Not on file Sexual Orientation Not on file Last Filed Vital Signs Vital Sign Reading Time Taken Comments Blood Pressure - - Pulse - - Temperature - - Respiratory Rate - - Oxygen Saturation - - Inhaled Oxygen Concentration - - Weight 89.4 kg (197 lb 0.1 oz) 12/22/2016 11:56 AM EDT Height 171.5 cm (5' 7.5 ) 12/22/2016 11:56 AM ED T Body Mass Index 30.4 12/22/2016 11:56 AM EDT Plan of Treatment Not on file Care Teams Stabilizing Machine Operator Relationship Specialty Start Date End Date Santiago Mathews MD [address] [place] [address] [place], [place] [id number] PCP - General 12/21/20
--- OUTSIDE RECORDS SUMMARY | 2025-06-19 10:14 | XMS_ITS | Encounter Summary ---
Author Organization [employer] ([place], [place], [place], [place], [place]) Address [address] [place] [address] Care Team Providers Care Church Official Name Role Phone Unavailable Primary Care Provider Unavailabl e Encounter Details Date Type Department Care Team (Late st Contact Info) Description 11/27/2019 Transcribed Document [facility] [place] [facility] [place] [address] ProviderMaribel MD [facility] [place] [address] Social History Tobacco Use Types Packs/Day Years Used Date Smoking Tobacco: Never Assessed Comments Unknown Sex and Gender Information Value Date Recorded Sex Assigned at Not on file Legal Sex Female 4:40 PM CDT Gender Identity Not on file Sexual Orientation Not on file documented as of this encounter Miscellaneous Notes * Cerner Conversion Note - Maribel Batista MD - 11/27/2019 4:06 PM CDT Patient: SHANTELLE DIAZ Age: 64 Years Sex: Female : 1955 *Operation Hip Total Revision, Indication for Surgery Recurrent instability right hip dislocation *Preoperative Diagnosis reaccurting dislocated rigjht hip *Postoperative Diagnosis reaccurting dislocated rigjht hip *Surgeon(s) Primary Surgeon JULIO STEWART MD-ORT (Surgeon/Proceduralist, First) *Procedure Narrative Implants Biomet G7 cup size 56 with a dual mobility liner size F a Warner 12 x 14 head +8 28 mm with a Maty Biomet to mobility outer head 40 4F Intraoperative fluoroscopy was used during the case to assist in implant position Procedure Revision right total hip acetabular component, open reduction of dislocated right hip 64-year-old female who was admitted to [facility]. Patient had a long history of problems with her right hip replacement she originally underwent surgery and had a hip replacement done at [facility] unfortunately this was done with a metal on metal head that underwent failure and had recurrent instability, this was revised to a lto-fypps-nw-metal articulation unfortunately VAC degenerative instability 2017 Dr. Harris performed a revision surgery due to constrained liner. That worked well for about 3 years and then she was getting up from a seated position and felt a pop and had a painful shortly externally rotated right lower extremity. She seen at outside emergency room and diagnosed with hip dislocation and to try to reduce it despite having a constrained liner in place were unsuccessful. Patient was then transferred here for definitive care. I did discuss the case with Dr. Harris over the phone to assess me to take over care of the patient and proceed with surgery. Had a long discussion with patient about options for surgery including headliner exchange with lengthening and replacement of a constrained liner. We did discuss that her cup was likely positioned with 2 much anteversion which was causing her anterior dislocations. Other option was a full cup revision. We did discuss that this could include potential for some bone loss. Patient opted for full cup revision. The patient was indicated for a revision right total hip arthroplasty acetabular component. Likely risk benefits of the procedure including but not limited to infection, DVT, pulmonary embolism, leg length discrepancy, recurrent dislocation, possibility of injury to nerves and vessels, and periprosthetic fractures have been discussed with the patient and family in detail. Despite the risks involved the patient elected to proceed with an informed consent was obtained. The patient was seen in the preoperative holding area and the operative extremity was marked. Description of procedure: The patient was transferred to [facility] operating room preoperative antibiotics Given IV Prior to Skin Incision As Well As 1 G of Tranexemic Acid. Patient Received general anesthesia and was transferred to the [place] [facility]. All Bony Prominences Were Padded Adequately. The Operative Hip Was Then Prepped and Draped in the Usual Sterile Fashion. Multiple timeouts Were Done Identifying the Correct Patient Surgical Site and Planned Procedure. A Skin Incision Was Made Overlying the Anterior Lateral Aspect of the Hip for about 10 Cm Just below the Lateral to the Anterior Superior Iliac Spine. Skin and Subcutaneous Tissue and Fascia Was Incised in Line with the Skin Incision Overlying the Tensor Fascia Sherri Muscle. The Tensor Muscle Was Then Retracted Laterally and the Interval between Sartorius and Rectus Femoris Medially and the Tensor Fascia Muscle Were Developed. We did pulse traction of the leg in order to have hip near reduction position. They will the deep capsule was actually reformed has to actually incised the capsule there was a small amount of serous fluid have no signs of infection however multiple cultures were taken. We then tagged the anterior posterior capsules and placed Cobra retractors inside of them. We then using a impactor knock the head off into the acetabular cup externally rotated the femur and let traction off the skin was good exposure to the acetabulum we removed the outer ring and the femoral head. We then removed the inner polyethylene this was somewhat difficult to good been some damage to the inner ring lock was challenged to reduce the areolar removed the polyethylene but eventually able to do it. We then placed trial liner inside the acetabular cup placed a trial head on the femur and reduced it was quite obvious that the cup was over anteverted with significant amount of anterior undercoverage and patient had some concern for impingement with external rotation and extension of the hip. Because of this we opted for a full cup revision. The began with a small curved cup extraction device to an odontoid larger one carefully circumferentially creating interface between the asked Her cup and the acetabulum. Last several cup was removed with minimal to no bone loss. Unfortunately once removing the cup we didn't identify there is significant amount of bone loss to the acetabulum this is likely due to the patient's history of [id number]-bg-[id number] hip with significant of ostial lysis present in both the inferior quadrant as well as in the anterior superior quadrant of the acetabulum. We did begin reaming up on the acetabulum we are careful because of the fragile bone. We originally reamed to a 53 tracked impactor 54 cup. Unfortunately was unable to give very good fixation we then went up to a 56 cup without reaming any further to try to get some rim fit between the anterior posterior columns. This is found to have a previous scratch fit we used a secondary impactor and the cup was solid we then inserted 2 screws and the posterior superior and the cup that had reasonable bite. The cup was solid and did not move with manual manipulation. We then impacted a dual mobility liner found to seat well. We then trialed and found a +8 head to be the best in terms of matching up leg length offset and stability. Final implants were placed and the hip was reduced taking through range of motion found to be stable final x-rays were taken and found to have the hip in very good position overall in terms of leg length and offset. . The wound was then thoroughly irrigated saline we did use of more of the injection cocktail. Betadine irrigation was used followed by 3L of saline irrigation. Soft tissue hemostasis was secured and second IV dose TXA was used. Sponge and needle instrument counts were correctthen closed the fascial layer with a running #2 strata fix followed by 2-0 Vicryl and then destin for the skin. Mepilex AG dressing placed over the top. The patient was then transferred to the recovery room in stable condition patient tolerated the procedure well there were no Medications the patient adequate distal pulses and good cap refill. The patient will be mobilized by physical therapy received antibiotic prophylaxis postoperatively for 2 more doses given the first 24 hours, followed by 2 weeks of oral antibiotics due to the revision nature of the surgery. The patient was started on DVT prophylaxis with 81 mg aspirin twice daily on starting postoperative day #1. Because of the significant amount of ostial lysis in the acetabulum patient will be toe-touch weightbearing were also need her in a hip abduction brace in order to help her hip scar in as her major issue is instability and dislocations preoperatively. I discussed the satisfactory performance of the procedure with the patient's family and discussed the postoperative management. Anesthesia General INA SOLITARIO DO-ANS (Anesthesiologist) Date of Service Date/Time of Service SN - Proc - Start Time: 11/27/19 12:49:00 (11/27/19 12:57:32) Electronically signed by Genoveva James Conversion Cannon Fire Direction Specialist Cerner at 11/22/2022 8:51 PM CDT documented in this encounter Plan of Treatment Not on file documented as of this encounter Visit Diagnoses Not on filedocumented in this encounter
--- OUTSIDE RECORDS SUMMARY | 2025-06-19 10:14 | XMS_ITS | Encounter Summary ---
Author Organization [employer] ([place], [place], [place], [place], [place]) Address [address] [place] [address] Care Team Providers Care Agent Licensing Clerk Name Role Phone Unavailable Primary Care Provider Unavailabl e Encounter Details Date Type Department Care Team (Late st Contact Info) Description 11/30/2019 Transcribed Document [facility] [place] Family Medicine [address] [place] [address] ProviderMaribel MD [facility] [place] [address] Social History Tobacco Use Types Packs/Day Years Used Date Smoking Tobacco: Never Assessed Comments Unknown Sex and Gender Information Value Date Recorded Sex Assigned at Not on file Legal Sex Female 4:40 PM CDT Gender Identity Not on file Sexual Orientation Not on file documented as of this encounter Miscellaneous Notes * Cerner Conversion Note - Historical ProviderMD - 11/30/2019 3:22 PM CDT Stroke/Warfarin Instructions Entered On: 11/30/2019 15:22 EDT Performed On: 11/30/2019 15:22 EDT by Maricel Anderson RN Stroke/Warfarin Instructions Stroke/TIA Discharge Ins : N/A Warfarin Discharge Ins : N/A Maricel Anderson RN - 11/30/2019 15:22 EDT documented in this encounter Plan of Treatment Not on file documented as of this encounter Visit Diagnoses Not on filedocumented in this encounter
--- OUTSIDE RECORDS SUMMARY | 2025-06-19 10:14 | XMS_ITS | Encounter Summary ---
Author Organization [employer] ([place], [place], [place], [place], [place]) Address [address] [place] [address] Care Team Providers Care Instrument Shop Supervisor Name Role Phone Unavailable Primary Care Provider Unavailabl e Encounter Details Date Type Department Care Team (Late st Contact Info) Description 11/26/2019 Transcribed Document [facility] [place] [facility] [address] ProviderMaribel [place] [address] Social History Tobacco Use Types Packs/Day Years Used Date Smoking Tobacco: Never Assessed Comments Unknown Sex and Gender Information Value Date Recorded Sex Assigned at Not on file Legal Sex Female 4:40 PM CDT Gender Identity Not on file Sexual Orientation Not on file documented as of this encounter Miscellaneous Notes * Cerner Conversion Note - Maribel Batista MD - 11/26/2019 9:24 PM CDT Pain Assessment Entered On: 11/29/2019 12:04 EDT Performed On: 11/29/2019 9:03 EDT by Linda Dia RN Intervention Information: acetaminophen-HYDROcodone Performed by Linda Dia RN on 11/29/2019 08:03:00 EDT acetaminophen-HYDROcodone,1Tab Oral,Pain (Moderate 4-6) Pain Assessment Pain Assessment : Follow-up assessment Pain Scale Goal : 3 Pain Scale Used : 0-10 Scale Pain Improved by Intervention : Yes Linda Dia RN - 11/29/2019 12:04 EDT Pain Scale Intensity : 2 Linda Dia RN - 11/29/2019 12:04 EDT Image 4 - Images currently included in the form version of this document have not been included in the text rendition version of the form. Electronically signed by Genoveva James Conversion Hand Method Lasting Machine Operator Cerner at 11/22/2022 8:53 PM CDT documented in this encounter Plan of Treatment Not on file documented as of this encounter Visit Diagnoses Not on filedocumented in this encounter
--- OUTSIDE RECORDS SUMMARY | 2025-06-19 10:14 | XMS_ITS | Patient Health Record ---
Author Organization [facility] Address [address] [facility] [address] [place], [place] [address] Care Team Providers Care Mechanical Adjuster Name Role Phone Toni Eugene Primary Care Provider [phone] BisiMayra Unavailable [phone] Allergies No Known Allergies Results Component Value [...] Interpretation:normal Performing Lab: Notes/Report: Test performed by [facility] [address] [place] [address] , [address], [place] [address] Karlos Toure MD, Rounding Machine Operator CLIA: [id number] Sodium 139 135-145 mmol/L Potassium 4.5 3.5-5.3 [...] 156 Performing Lab: Notes/Report: Test performed by [facility] [address] [place] [address] , [address] , [place] [address] Karlos Toure MD, Rounding Machine Operator CLIA: [id number] Lipid Panel Footnote See Below *Based on optimal reference values. Please refer to the DOS for additional information regarding diagnostic lipid reference ranges, patient management based on the recently updated lipid guidelines ([place] [employer]/[place] [employer] Association Task Force on Clinical Practice [...] Results: 156 Units: mg/dL % Change: - Medications Medication SIG (Take, Route, Frequency, Duration) Notes Start Date End Date Status Aspirin 81 MG 1 tab(s) orally once a day Active Immunizations Vaccine Route Administration Date Status Comme nts Fluzone High Dose (65yr and older) IM Intramuscular 05/30/2025 Administered Fluzone Quad (6months&older) Unknown 05/17/2018 Administered Fluzone Quad (6months&older) IM Intramuscular 07/12/2019 Administered Fluzone Quad (6months&older) IM Intramuscular 07/26/2019 Administered Prevnar (PCV20) IM Intramuscular 05/30/2025 Administered Tetanus Tdap-Adacel (over 7yrs) IM Intramuscular 07/10/2008 Administered xFlu shot-36 months and older IM Intramuscular 07/10/2008 Administered Problems Problem Type SNOMED Code ICD Code Onset Dates Problem Status W/U Status Risk Notes Problem Patent foramen ovale (022390598) Patent foramen ovale (745.5) Active confirmed Problem Age-related osteoporosis (404759746) Age-related osteoporosis without current pathological fracture (M81.0) Active confirmed Problem Localized, primary osteoarthritis of the pelvic region and thigh (178719513) Primary osteoarthritis of left hip (M16.12) Active confirmed Problem Dyslipidemia (752956781) Dyslipidemia (E78.5) Active confirmed Vital Signs Heart Rate 67 /min 05/30/2025 Blood pressure diastolic 78 mm Hg 05/30/2025 Height 66 in 05/30/2025 Blood pressure systolic 130 mm Hg 05/30/2025 Weight 170.2 lbs 05/30/2025 BMI 27.47 kg/m2 05/30/2025 Encounters Encounter Location Date Provider Diagnosis [facility] [address] [facility] [address] [place] [id number] 05/30/2025 R Shivam Mathews Dyslipidemia E78.5 ; Encounter for immunization Z23 ; Breast cancer screening Z12.39 ; Colon cancer screening Z12.11 and BMI 27.0-27.9,adult Z68.27 [facility] [address] [place] [id number] 06/01/2025 Toni Eugene Assessments Encounter Date Diagnosis (ICD Code) Assessment Notes Treatment Notes Treatment Clinical Notes Section Notes 05/30/2025 Encounter for immunization (ICD-10 - Z23) 05/30/2025 Dyslipidemia (ICD-10 - E78.5) 05/30/2025 Breast cancer screening (ICD-10 - Z12.39) 05/30/2025 Colon cancer screening (ICD-10 - Z12.11) 05/30/2025 BMI 27.0-27.9,adult (ICD-10 - Z68.27) Plan Of Treatment Pending Test Test Name Order Date Mammogram 05/30/2025 Cologuard 05/30/2025 Insurance Providers Payer Name Payer Address Payer Phone Subscriber Number Group Number Insured Name Patient Relationship to Insured Coverage Start Date Coverage End Date MEDICARE PART B [address] [address] Julien carrilloMEGAN [id number] Shantelle Diaz Self - patient is the insured [address] [id number] Shantelle Diaz Self - patient is the insured Medical (General) History Medical History History ICD Code TIA Patent Foramen Ovale DJD Surgical History Surgery Date(Month/Year) tubal ligation 1981 bunionectomy 2001 L4-L5 fusion 1987 [facility] 06/2017 right hip replacement 08/2017 Hospitalization History Reason Date(Month/Year) H-heart cath 01/21 HM-slurred speech, decrease in focus, T [place] 01/03/14 see above
--- OUTSIDE RECORDS SUMMARY | 2025-06-19 10:14 | XMS_ITS | Encounter Summary ---
Author Organization [employer] ([place], [place], [place], [place], [place]) Address [address] [place] [address] Care Team Providers Care Cyber Instructor Name Role Phone Unavailable Primary Care Provider Unavailabl e Encounter Details Date Type Department Care Team (Late st Contact Info) Description 11/30/2019 Transcribed Document [facility] [place] Family Medicine [address] [place] [address] ProviderMaribel MD [address] [place] [address] Social History Tobacco Use Types Packs/Day Years Used Date Smoking Tobacco: Never Assessed Comments Unknown Sex and Gender Information Value Date Recorded Sex Assigned at Not on file Legal Sex Female 4:40 PM CDT Gender Identity Not on file Sexual Orientation Not on file documented as of this encounter Miscellaneous Notes * Cerner Conversion Note - Historical ProviderMD - 11/30/2019 3:37 PM CDT JANE Entered On: 11/30/2019 15:38 EDT Performed On: 11/30/2019 15:37 EDT by GIOVANNY MONROE MD-INT JANE Indication of use for OOCS : Acute Illness OOCS Misuse Suspected : Other Was JANE queried : Other Patient Advised to seek OOCS Treatment : Other Treatment to Include Limited Supply of OOCS : Other JANE Result : Other JANE Other Notes : as per Referring facility medical records Patient cancelled on OOCS : Other JANE : . GIOVANNY MONROE MD-INT - 11/30/2019 15:37 EDT documented in this encounter Plan of Treatment Not on file documented as of this encounter Visit Diagnoses Not on filedocumented in this encounter
--- OUTSIDE RECORDS SUMMARY | 2025-06-19 10:14 | XMS_ITS | Encounter Summary ---
Author Organization [employer] ([place], [place], [place], [place], [place]) Address [address] [place] [address] Care Team Providers Care Ice Cream Dipper Name Role Phone Unavailable Primary Care Provider Unavailabl e Encounter Details Date Type Department Care Team (Late st Contact Info) Description 11/26/2019 Transcribed Document [facility] [place] [address] [place] [address] ProviderMaribel MD Replaced by [facility] [place] [address] Social History Tobacco Use Types Packs/Day Years Used Date Smoking Tobacco: Never Assessed Comments Unknown Sex and Gender Information Value Date Recorded Sex Assigned at Not on file Legal Sex Female 4:40 PM CDT Gender Identity Not on file Sexual Orientation Not on file documented as of this encounter Miscellaneous Notes * Cerner Conversion Note - Maribel ProviderMD - 11/26/2019 9:24 PM CDT Pain Assessment Entered On: 11/29/2019 1:17 EDT Performed On: 11/29/2019 1:19 EDT by Elizabeth Be RN Intervention Information: acetaminophen-HYDROcodone Performed by Elizabeth Be RN on 11/29/2019 00:19:00 EDT acetaminophen-HYDROcodone,2Tab Oral,Pain (Severe 7-10) Pain Assessment Pain Assessment : Follow-up assessment Pain Scale Goal : 3 Pain Intervention, Drug : Medicated Pain Improved by Intervention : Yes Elizabeth Be RN - 11/29/2019 1:17 EDT Electronically signed by Genoveva James Conversion Chairman & Chief Executive Officer Cerner at 11/22/2022 8:52 PM CDT documented in this encounter Plan of Treatment Not on file documented as of this encounter Visit Diagnoses Not on filedocumented in this encounter
--- OUTSIDE RECORDS SUMMARY | 2025-06-19 10:14 | XMS_ITS | Encounter Summary ---
Author Organization [employer] ([place], [place], [place], [place], [place]) Address [address] [place] [id number] Care Team Providers Care Load Tallier Name Role Phone Unavailable Primary Care Provider Unavailabl e Encounter Details Date Type Department Care Team (Late st Contact Info) Description 11/30/2019 Transcribed Document [facility] [place] [facility] [place] [address] ProviderMaribel MD [address] [place] [address] Social History Tobacco Use Types Packs/Day Years Used Date Smoking Tobacco: Never Assessed Comments Unknown Sex and Gender Information Value Date Recorded Sex Assigned at Not on file Legal Sex Female 4:40 PM CDT Gender Identity Not on file Sexual Orientation Not on file documented as of this encounter Miscellaneous Notes * Cerner Conversion Note - Maribel Batista MD - 11/30/2019 3:39 PM CDT Patient: SHANTELLE DIAZ Age: 64 years Sex: Female : 1955 Associated Diagnoses: Recurrent Right RTHA dislocation; Status post right total hip arthroplasty revision; H/O: TIA 12/2013; migraine; GERD - Gastro-esophageal reflux disease; PFO (patent foramen ovale) Author: GIOVANNY MONROE MD-INT Date of admission: 11/26/2019 Date of discharge: 11/30/2019 Orthopedic surgeon: Shahbaz Arora M.D. Admitting and discharging physician: [facility] medicine, internal medicine, Giovanny Monroe M.D. Admitting diagnosis 1???recurrent right total hip arthroplasty dislocation 2???right total hip arthroplasty in the 80s, and a revision on 08/12/2017 and 10/08/2018 3???patent browne ovale 4???GERD 5???history of TIA 6???DJD Discharge diagnosis 1???recurrent right total hip arthroplasty revision by Dr. Arora for recurrent RTHA dislocation 2???history of TIA on 12/2013 3???migraine 4???GERD 5???PFO 6???DJD History of present illness and course of her hospital stay - 64 years old white female who is well known to me from multiple previous admissions with a history of RTHA and recurrent dislocation and a revision in addition to history of DJD, PFO , GERD, TIA etc. who underwent right total hip arthroplasty back in the 80s followed by revision on 08/12/2017 and on 10/08/[address] Stanley and [place] [facility] [place], from local [facility] [address] ED on 11/26/2019 with recurrent right hip dislocation. Patient was then taken to the OR by Dr. Arora and underwent RTHA revision. Postoperatively patient was on femoral nerve block in addition to oral pain medications as per Dr. Arora recommendations and her pain was well-controlled. Patient also was on DVT prophylaxis as per Dr. Arora protocol. She did not have any trouble with urination and her urine output was adequate. She was on scheduled bowel regimen and she has a bowel movement. After surgery, initially started on clear liquid diet which was advanced to a high-fiber diet and was tolerating well oral by mouth intake. She denies any chest pain shortness of breath diaphoresis nausea or vomiting. She started on PT/OT and is participating well with rehabilitation Today, patient is awake alert cooperative responsive under no acute distress and she preferred to go home on home dialysis is going to rehabilitation and because nothing else can be offered to keep the patient in the hospital, she will be discharged home on her requests. Patient is stable for discharge. Basic Information Review of Systems Constitutional: No fever, No weakness, No fatigue. Eye: No recent visual problem, No double vision, No visual disturbances. Ear/Nose/Mouth/Throat: No nasal congestion, No sore throat. Respiratory: No shortness of breath, No cough, No wheezing. Cardiovascular: No chest pain, No tachycardia. Gastrointestinal: No nausea, No vomiting. Genitourinary: Negative. Musculoskeletal: Negative. Integumentary: wound stable covered w. clean dressing, No rash, No pruritus. Neurologic: Alert and oriented X4, no dizziness. Health Status Allergies: Allergies (1) Active Reaction No Known Allergies None Documented Current medications: Medications (28) Active Scheduled: (5) aspirin EC 81 mg tab 81 mg 1 Tab, Oral, BID docusate sodium 100 mg cap 100 mg 1 Cap, Oral, BID doxycycline monohydrate 100 mg cap 100 mg 1 Cap, Oral, BID tranexamic acid 1 Gram 10 mL, IV Piggyback, Pre Procedure tranexamic acid 1 Gram 10 mL, IV Piggyback, Post Procedure Continuous: (1) NaCl 0.9% 1,000 mL 1,000 mL, IntraVENous, 50 mL/Hr PRN: (22) acetaminophen 325 mg tab 650 mg 2 Tab, Oral, Q4H acetaminophen/HYDROcodone 325/5 mg tab 1 Tab, Oral, Q4H acetaminophen/HYDROcodone 325/5 mg tab 2 Tab, Oral, Q4H ALPRAZolam 0.25 mg tab 0.25 mg 1 Tab, Oral, Q6H bisacodyl 10 mg supp 10 mg 1 Supp, Rectal, BID calcium gluconate 1 Gram 10 mL, IV Piggyback, Daily calcium gluconate + NaCl 0.9% 100 mL 2 Gram 20 mL, IV Piggyback, Daily calcium gluconate + NaCl 0.9% 100 mL 2 Gram 20 mL, IV Piggyback, Q12H cloNIDine 0.1 mg tab 0.1 mg 1 Tab, Oral, Q4H magnesium hydroxide 8% liq 30 mL 30 mL, Oral, Daily magnesium sulfate 2 Gram 50 mL, IV Piggyback, Daily magnesium sulfate 2 Gram 50 mL, IV Piggyback, Q2H metoclopramide 10 mg/2 mL inj 5 mg 1 mL, IV Push, Q6H ondansetron 4 mg/2 mL inj 4 mg 2 mL, IV Push, Q4H potassium chloride 10 mEq 100 mL, IV Piggyback, Q1H potassium chloride CR 20 mEq tab 20 mEq 1 Tab, Oral, Q2H potassium chloride CR 20 mEq tab 60 mEq 3 Tab, Oral, Q2H scopolamine 1.5 mg/72 hr patch 1 Patch, TransDermal, Q3Days sodium phosphate 15 mMole 5 mL, IV Piggyback, Daily sodium phosphate 15 mMole 5 mL, IV Piggyback, Q6H temazepam 15 mg cap 15 mg 1 Cap, Oral, At Bedtime traZODone 50 mg tab 50 mg 1 Tab, Oral, At Bedtime Problem list: Active Problems (5) Confusion H/O: TIA 12/2013 Hx of migraines PFO (patent foramen ovale) Urinary tract infection Physical Examination VS/Measurements Vital Measurements 11/30/2019 14:16 EDT Systolic Blood Pressure 138 mmHg Diastolic Blood Pressure 62 mmHg Mean Arterial Pressure (MAP)-BMDI 80 Temperature Source Oral Temperature Mode Fahrenheit Temperature, Fahrenheit 97.1 Deg F Clinical Temperature, C 36.2 Deg C Heart Rate Monitored 98 bpm Respiratory Rate 16 Breaths/Min Oxygen Saturation 96 % General: Alert and oriented, No acute distress. Eye: Pupils are equal, round and reactive to light, Extraocular movements are intact. HENT: Oral mucosa is moist. Neck: Supple, No carotid bruit, No jugular venous distention, No lymphadenopathy, No thyromegaly. Respiratory: Lungs are clear to auscultation, Breath sounds are equal. Cardiovascular: Normal rate, Regular rhythm, No murmur. Gastrointestinal: Soft, Non-tender, Normal bowel sounds, No organomegaly. Genitourinary: No costovertebral angle tenderness, No inguinal tenderness. Lymphatics: No lymphadenopathy neck, axilla, groin. Musculoskeletal: Normal strength, No swelling. Integumentary: Warm, Intact, No rash, WOUND STABLE. Neurologic: Alert, Oriented, No focal deficits. Psychiatric: Cooperative, Appropriate mood & affect. Review / Management Results review: All Results 11/30/2019 4:16 EDT Sodium Level 143 mmol/L Potassium Level 4.2 mmol/L Chloride Level 113 mmol/L HI Carbon Dioxide Level 25 mmol/L Anion Gap 9 Glucose Level 86 mg/dL Blood Urea Nitrogen 12 mg/dL Creatinine Level 0.65 mg/dL eGFR >60 mL/min/1.73m2 eGFR NonAfrican >60 mL/min/1.73m2 Bun/Creatinine 18.5 Calcium Level 8.2 mg/dL LOW WBC 5.6 K/uL RBC 3.33 Million/uL LOW Hgb 10.4 Gram/dL LOW Hct 32.0 % LOW MCV 96.1 fL HI MCH 31.2 pg MCHC 32.5 Gram/dL Platelet Count 163 K/uL MPV 10.6 fL RDW 13.2 % Neut % 69.3 % Neut # 3.89 K/uL Lymph % 22.1 % Lymph # 1.24 K/uL Trimble % 6.2 % Trimble # 0.35 K/uL Eos % 1.6 % Eos # 0.09 K/uL Baso % 0.4 % Baso # 0.02 K/uL Slide Review No IG# 0 x10(3)/uL IG% 0 % 11/29/2019 5:12 EDT Sodium Level 144 mmol/L Potassium Level 4.2 mmol/L Chloride Level 114 mmol/L HI Carbon Dioxide Level 23 mmol/L Anion Gap 11 Glucose Level 84 mg/dL Blood Urea Nitrogen 14 mg/dL Creatinine Level 0.73 mg/dL eGFR >60 mL/min/1.73m2 eGFR NonAfrican >60 mL/min/1.73m2 Bun/Creatinine 19.2 Calcium Level 7.9 mg/dL LOW Protein Total 4.9 Gram/dL LOW Albumin Level 2.4 Gram/dL LOW Globulin 2.5 Gram/dL A/G Ratio 1.0 LOW Bilirubin Total 0.2 mg/dL Alk Phos 82 Units/Liter AST 54 Units/Liter HI ALT 36 Units/Liter WBC 6.5 K/uL RBC 3.35 Million/uL LOW Hgb 10.5 Gram/dL LOW Hct 32.2 % LOW MCV 96.1 fL HI MCH 31.3 pg MCHC 32.6 Gram/dL Platelet Count 165 K/uL MPV 10.8 fL RDW 13.2 % Neut % 69.0 % Neut # 4.52 K/uL Lymph % 23.7 % Lymph # 1.55 K/uL Trimble % 5.7 % Trimble # 0.37 K/uL Eos % 1.1 % Eos # 0.07 K/uL Baso % 0.2 % Baso # 0.01 K/uL Slide Review No IG# 0 x10(3)/uL IG% 0 % . Condition: Stable. Discharge Plan Discharge Summary Plan Discharge Status: stable. Orders Order Profile (Selected) Inpatient Orders Ordered Discharge Notification Pharmacy: Start: 11/30/19 15:37:41 EDT Discharge: Start: 11/30/19 15:37:00 EDT, Discharge to: Home, Other DC instructions: May Go home from medical standpoint and discharged by Dr. Arora and PT/OT. The nursing staff and case management to follow up on Dr. Arora and PT/OT recommendations. Diagnosis Recurrent Right RTHA dislocation - Discharge, Medical. Status post right total hip arthroplasty revision - Discharge, Medical. H/O: TIA 12/2013 - Discharge, Medical. Migraine - Discharge, Medical. GERD - Gastro-esophageal reflux disease - Discharge, Medical. PFO (patent foramen ovale) - Discharge, Medical. Course Improving. Stable. Plan/ pt is HD & CLINICALLY STABLE AFEBRILE OK TO D/C HOME ALL CONSULTANTS AGREE FOR HER D/C HOME ON HH / OUTPT.REHAB.. Orders Order Profile (Selected) Prescriptions Prescribed [place] 7.5 mg-325 mg oral tablet: 1 Tab, Oral, Tab, Q6H, PRN for pain, X 14 Day(s), # 60 Tab, 0 Refill(s), other reason (Rx) aspirin 81 mg oral delayed release tablet: 1 Tab, Oral, EC Tab, BID, # 60 Tab, 0 Refill(s). Impression and Plan twt 40 mn documented in this encounter Plan of Treatment Not on file documented as of this encounter Visit Diagnoses Not on filedocumented in this encounter
--- OUTSIDE RECORDS SUMMARY | 2025-06-19 10:14 | XMS_ITS | Encounter Summary ---
Author Organization [employer] ([place], [place], [place], [place], [place]) Address [address] [place] [address] Care Team Providers Care Salmon Troll Fisher Name Role Phone Unavailable Primary Care Provider Unavailabl e Encounter Details Date Type Department Care Team (Late st Contact Info) Description 11/30/2019 Transcribed Document [facility] [place] Medicine [facility] [place] [address] ProviderMaribel MD [facility] [place] [address] Social History Tobacco Use Types Packs/Day Years Used Date Smoking Tobacco: Never Assessed Comments Unknown Sex and Gender Information Value Date Recorded Sex Assigned at Not on file Legal Sex Female 4:40 PM CDT Gender Identity Not on file Sexual Orientation Not on file documented as of this encounter Miscellaneous Notes * Cerner Conversion Note - Maribel ProviderMD - 11/30/2019 3:00 AM CDT Nutrition Assessment Entered On: 11/30/2019 10:21 EDT Performed On: 11/30/2019 10:[address]uly [address], SINCERE Nutrition Assessment Nutrition Assessment Reason : Other: LOS Yuly Noble RD, LD - 11/30/2019 10:20 EDT Nutrition Recommendations Dietitian Recommendations : (11/29) GEOVANNY reviewed chart r/t LOS. Pt admitted due to recurrent right ARLYN disclocation s/p revision. Pt is on a regular diet eating >50% of meals recorded. Labs and meds reviewed. No skin or GI issues noted. No nutritional concerns identified at this time. RD to rescreen in 7-10 days or available prn. Yuly Noble RD, LD - 11/30/2019 10:20 EDT documented in this encounter Plan of Treatment Not on file documented as of this encounter Visit Diagnoses Not on filedocumented in this encounter
--- OUTSIDE RECORDS SUMMARY | 2025-06-19 10:14 | XMS_ITS | Encounter Summary ---
Author Organization [employer] ([place], [place], [place], [place], [place]) Address [address] [place] [id number] Care Team Providers Care Restaurant Host Name Role Phone Unavailable Primary Care Provider Unavailabl e Encounter Details Date Type Department Care Team (Late st Contact Info) Description 11/27/2019 Transcribed Document [facility] [facility] [place] [address] ProviderMaribel MD [facility] [place] [address] Social History Tobacco Use Types Packs/Day Years Used Date Smoking Tobacco: Never Assessed Comments Unknown Sex and Gender Information Value Date Recorded Sex Assigned at Not on file Legal Sex Female 4:40 PM CDT Gender Identity Not on file Sexual Orientation Not on file documented as of this encounter Miscellaneous Notes * Cerner Conversion Note - Maribel Batista MD - 11/27/2019 10:27 AM CDT Patient: SHANTELLE DIAZ Age: 64 Years Sex: Female : 1955 Reason for Consultation Recurrent instability right hip History of Present Illness 64-year-old female presents with a right total hip dislocation transferred in from outside hospital. Patient had a long history of comp patients with her right hip. She originally had a [id number] hip replacement done and suffered from some abductor injury and instability. At one of my partners converted her to a high walled liner unfortunately that became unstable as well and then had a revision to a constrained liner 2017. That it remained stable for her. Yesterday while getting up from a seated position she felt acute pain and pop and had a short and externally rotated right lower extremity. She is brought to local emergency room which revealed a dislocated hip. Emergency room attempted closed reduction but was unsuccessful less likely due to the constrained liner in place. Patient denies any other injury She has no history of smoking no history of diabetes she does report a history of TIA but has no residual symptoms She does not take any chronic blood thinners Review of Systems Constitutional: [No fevers, chills, sweats] Eye: [No recent visual problems] ENMT: [No ear pain, nasal congestion, sore throat] Respiratory: [No shortness of breath, cough] Cardiovascular: [No Chest pain, palpitations, syncope] Gastrointestinal: [No nausea, vomiting, diarrhea] Genitourinary: [No hematuria] Vital Signs T: 36.3 ??C TMIN: 36.3 ??C TMAX: 36.7 ??C HR: 73(Monitored) RR: 14 BP: 131/86 SpO2: 98% HT: 172.72 cm WT: 81.82 kg BMI: 27.4 Oxygen Settings (Last) Oxygen Therapy Mode: Room air (11/27/19 09:15:00) Physical Exam Right lower extremity: Leg short externally rotated both anterior and lateral incisions appear well-healed no signs of infection Pain with any motion of the hip She has some mild motor weakness of her lower extremity including her gastrocs and soleus as well as EHL FHL she can fire them but appears weakened sensation is intact hard to tell whether the motor weakness is due to pain or any transient nerve irritation 2+ dorsalis pedis pulse Assessment/Plan 64-year-old female with a dislocated recurrently unstable right total hip replacement A long discussion with patient about surgical options. Nonoperative managements unlikely successful due to patient's dislocated hip and inability ambulate. Closed reduction unlikely be successful with a constrained liner in place Surgical options would include open reduction and potential lengthening of the construct with a larger neck length and reimplantation of a new constrained liner. Did discuss that this probably wouldn't fix the underlying problem which is likely over anteverted cup and while potential good fix the problem of the lesser surgery could potentially also have a higher risk of recurrent dislocation as she started failed this constrained liner. Second option was revision of the acetabular component. We convert to a implant that had dual mobility option. Also probably lengthen her somewhat as well. This would likely fix the over anteverted acetabular component and prevent recurrent instability. Did discuss with the patient that in revising the acetabular component there is a potential raising hip center which would make it difficult in order to match her leg lengths without revising the femoral stem is well unlikely there is a possibility of need for femoral stem revision which would require extended trochanteric osteotomy to remove. Patient voiced understanding of this After discussing the risks benefits alternatives to surgery with her and her at length patient wished to undergo revision of the acetabular component. We discussed treatment options and alternatives in detail. The patient would like to proceed with revision acetabular component right hip. The patient understands the risks involved including, but not limited to, infection, DVT, pulmonary embolism, leg length discrepancy, dislocation and subsequent loosening. No guarantees were made. All questions were answered. Will proceed with revision acetabular component right hip Nothing by mouth Mechanical DVT prophylaxis Pain control Bedrest Unspecified dislocation of right hip, initial encounter, Unspecified dislocation of right hip, initial encounter Orders: ceFAZolin, 2 Gram, IV Piggyback, Inj, 1-Time, infuse over 30 Minute(s), Routine, Start 11/27/19 11:00:00 EDT, Stop 11/27/19 11:00:00 EDT, 100 mL/Hr, Indication: Surgical Prophylaxis cloNIDine 80 mcg + ketorolac 30 mg + ropivacaine 25 mL + epinephrine-lidocaine 23.2 mL, IntraLesional, 1-Time, Administer over 1 Minute(s), Start 11/27/19 9:00:00 EDT, Stop 11/27/19 9:00:00 EDT, 3000 mL/Hr tranexamic acid, 1 Gram 10 mL, IV Piggyback, Post Procedure, Administer over 30 Minute(s), Routine, Start 11/27/19 10:23:00 EDT, 220 mL/Hr tranexamic acid, 1 Gram 10 mL, IV Piggyback, Pre Procedure, Administer over 30 Minute(s), Routine, Start 11/27/19 8:41:00 EDT, 220 mL/Hr tranexamic acid 1,000 mg + syringe 1 Each + Sodium Chloride 0.9% intravenous solution 20 mL, Topical, 1-Time, Administer over 1 Hour(s), Start 11/27/19 9:00:00 EDT, Stop 11/27/19 9:00:00 EDT, 30 mL/Hr VTE Prophylaxis - Medical Sequential Compression Device Start: 11/26/19 21:24:00 EDT, Bilateral, Length: Knee High, While patient is in bed, Continuous Order (GIOVANNY MONROE) Provider Information Attending Physician - GIOVANNY MONROE MD-INT Admitting Physician - GIOVANNY MONROE MD-INT Consulting Physician - JULIO STEWART MD-ORT Referring Physician - JHONATHAN BENJAMIN Problem List/Past Medical History Ongoing Confusion GERD - Gastro-esophageal reflux disease H/O: TIA 12/2013 Hx of migraines PFO (patent foramen ovale) Urinary tract infection Historical No qualifying data Procedure/Surgical History REMOVAL OF LINER FROM RIGHT HIP JOINT, OPEN APPROACH (10/08/2017), SUPPLEMENT R HIP JT, ACETAB WITH LINER, OPEN APPROACH (10/08/2017), REMOVAL OF LINER FROM RIGHT HIP JOINT, OPEN APPROACH (08/12/2017), REMOVAL OF SYNTH SUB FROM R HIP JT, FEMORAL, OPEN APPROACH (08/12/2017), REPLACEMENT OF R HIP JT, FEMORAL WITH CERAMIC, OPEN APPROACH (08/12/2017), SUPPLEMENT R HIP JT, FEMORAL WITH LINER, OPEN APPROACH (08/12/2017), Back surgery, left hip replacement, repair of PFO, Right foot surgery, right hip replacement, tubal ligation. Medications Inpatient acetaminophen-HYDROcodone 325 mg-5 mg oral tablet, 1 Tab, Oral, Q4H, PRN acetaminophen-HYDROcodone 325 mg-5 mg oral tablet, 2 Tab, Oral, Q4H, PRN calcium gluconate calcium gluconate + Sodium Chloride 0.9% intravenous solution 100 mL calcium gluconate + Sodium Chloride 0.9% intravenous solution 100 mL ceFAZolin, 2 Gram= 50 mL, IV Piggyback, 1-Time cloNIDine, 0.1 mg= 1 Tab, Oral, Q4H, PRN cloNIDine 80 mcg + ketorolac 30 mg + ropivacaine 0.5% injectable solution 25 mL + Xylocaine HCl wit Colace, 100 mg= 1 Cap, Oral, BID Dilaudid, 0.5 mg= 0.5 mL, IV Push, Q2H, PRN Dulcolax Laxative, 10 mg= 1 Supp, Rectal, BID, PRN magnesium sulfate, 2 Gram= 50 mL, IV Piggyback, Daily, PRN magnesium sulfate, 2 Gram= 50 mL, IV Piggyback, Q2H, PRN metoclopramide, 5 mg= 1 mL, IV Push, Q6H, PRN Milk of Magnesia 8% oral suspension, 30 mL, Oral, Daily, PRN potassium chloride 10 mEq/50 mL intravenous solution, 10 mEq= 100 mL, IV Piggyback, Q1H, PRN potassium chloride 20 mEq oral tablet, extended release, 20 mEq= 1 Tab, Oral, Q2H, PRN potassium chloride 20 mEq oral tablet, extended release, 60 mEq= 3 Tab, Oral, Q2H, PRN Restoril, 15 mg= 1 Cap, Oral, At Bedtime, PRN Sodium Chloride 0.45% intravenous solution 1,000 mL, 1000 mL, IntraVENous sodium phosphate sodium phosphate tranexamic acid tranexamic acid tranexamic acid 1,000 mg + syringe 1 Each + Sodium Chloride 0.9% intravenous solution 20 mL Transderm-Scop 1.5 mg transdermal film, extended release, 1 Patch, TransDermal, Q3Days, PRN traZODone, 50 mg= 1 Tab, Oral, At Bedtime, PRN Tylenol, 650 mg= 2 Tab, Oral, Q4H, PRN Xanax, 0.25 mg= 1 Tab, Oral, Q6H, PRN Zofran, 4 mg= 2 mL, IV Push, Q4H, PRN Home aspirin 81 mg oral tablet, 81 mg= 1 Tab, Oral, BID Allergies No Known Allergies Social History Alcohol Use in Last 12 Months: No. Employment/School Retired Home/Environment Lives with Spouse. Nutrition/Health Caffeine intake amount: 2 cups per day. Substance Abuse Drug Use Hx: No. Tobacco Smoking Status Never smoker. Lab Results Test Name Test Result Date/Time Sodium Level 141 mmol/L 11/27/2019 03:57 EDT Potassium Level 3.8 mmol/L 11/27/2019 03:57 EDT Chloride Level 107 mmol/L 11/27/2019 03:57 EDT Carbon Dioxide Level 29 mmol/L 11/27/2019 03:57 EDT Anion Gap 9 11/27/2019 03:57 EDT Glucose Level 89 mg/dL 11/27/2019 03:57 EDT Blood Urea Nitrogen 8 mg/dL 11/27/2019 03:57 EDT Creatinine Level 0.72 mg/dL 11/27/2019 03:57 EDT eGFR >60 mL/min/1.73m2 11/27/2019 03:57 EDT eGFR NonAfrican >60 mL/min/1.73m2 11/27/2019 03:57 EDT Bun/Creatinine 11.1 11/27/2019 03:57 EDT Calcium Level 8.5 mg/dL 11/27/2019 03:57 EDT Protein Total 6.1 Gram/dL (Low) 11/27/2019 03:57 EDT Albumin Level 3.2 Gram/dL (Low) 11/27/2019 03:57 EDT Globulin 2.9 Gram/dL 11/27/2019 03:57 EDT A/G Ratio 1.1 11/27/2019 03:57 EDT Bilirubin Total 0.6 mg/dL 11/27/2019 03:57 EDT Alk Phos 94 Units/Liter 11/27/2019 03:57 EDT AST 21 Units/Liter 11/27/2019 03:57 EDT ALT 22 Units/Liter 11/27/2019 03:57 EDT WBC 5.5 K/uL 11/27/2019 03:57 EDT RBC 4.41 Million/uL 11/27/2019 03:57 EDT Hgb 13.8 Gram/dL 11/27/2019 03:57 EDT Hct 42.1 % 11/27/2019 03:57 EDT MCV 95.5 fL (High) 11/27/2019 03:57 EDT MCH 31.3 pg 11/27/2019 03:57 EDT MCHC 32.8 Gram/dL 11/27/2019 03:57 EDT Platelet Count 210 K/uL 11/27/2019 03:57 EDT MPV 10.1 fL 11/27/2019 03:57 EDT RDW 12.7 % 11/27/2019 03:57 EDT Neut % 68.6 % 11/27/2019 03:57 EDT Neut # 3.78 K/uL 11/27/2019 03:57 EDT Lymph % 21.5 % 11/27/2019 03:57 EDT Lymph # 1.18 K/uL 11/27/2019 03:57 EDT Graham % 8.0 % 11/27/2019 03:57 EDT Graham # 0.44 K/uL 11/27/2019 03:57 EDT Eos % 1.3 % 11/27/2019 03:57 EDT Eos # 0.07 K/uL 11/27/2019 03:57 EDT Baso % 0.2 % 11/27/2019 03:57 EDT Baso # 0.01 K/uL 11/27/2019 03:57 EDT Slide Review No 11/27/2019 03:57 EDT IG# 0 x10(3)/uL 11/27/2019 03:57 EDT IG% 0 % 11/27/2019 03:57 EDT Electronically signed by [facility] [employer] Overhauler Cerner at 11/22/2022 8:50 PM CDT documented in this encounter Plan of Treatment Not on file documented as of this encounter Visit Diagnoses Not on filedocumented in this encounter
--- OUTSIDE RECORDS SUMMARY | 2025-06-19 10:14 | XMS_ITS | Encounter Summary ---
Author Organization [employer] ([place], [place], [place], [place], [place]) Address [address] [place] [address] Care Team Providers Care Shell Maker Lockstitch Name Role Phone Unavailable Primary Care Provider Unavailabl e Encounter Details Date Type Department Care Team (Late st Contact Info) Description 11/27/2019 Transcribed Document [facility] [place] [address] [place] [address] ProviderMaribel MD [address] [place] [address] Social History Tobacco Use Types Packs/Day Years Used Date Smoking Tobacco: Never Assessed Comments Unknown Sex and Gender Information Value Date Recorded Sex Assigned at Not on file Legal Sex Female 4:40 PM CDT Gender Identity Not on file Sexual Orientation Not on file documented as of this encounter Miscellaneous Notes * Cerner Conversion Note - Historical ProviderMD - 11/27/2019 2:00 AM CDT Petroleum Engineering Teacher Details Entered On: 11/27/2019 0:53 EDT Performed On: 11/27/2019 2:00 EDT by Lynne Costello, RN Order Details Transport Mode Order Detail : Bed (including specialty) Isolation Precautions Order Detail : Contact precautions Order Detail : 0 IV Order Detail : 1 Oxygen Order Detail : 0 Nurse Collect Order Detail : 0 Lift/Transfer : Moderate assist Central Line Order Detail : No Room Service : Not Appropriate Arterial Line : No Lynne Costello, RN - 11/27/2019 0:52 EDT documented in this encounter Plan of Treatment Not on file documented as of this encounter Visit Diagnoses Not on filedocumented in this encounter
--- OUTSIDE RECORDS SUMMARY | 2025-06-19 10:14 | XMS_ITS | Encounter Summary ---
Author Organization [employer] ([place], [place], [place], [place], [place]) Address [address] [place] [address] Care Team Providers Care Neurophysiological Technician Name Role Phone Unavailable Primary Care Provider Unavailabl e Encounter Details Date Type Department Care Team (Late st Contact Info) Description 11/30/2019 Transcribed Document [facility] [place] [address] [place] [address] ProviderMaribel MD [address] [place] [address] Social History Tobacco Use Types Packs/Day Years Used Date Smoking Tobacco: Never Assessed Comments Unknown Sex and Gender Information Value Date Recorded Sex Assigned at Not on file Legal Sex Female 4:40 PM CDT Gender Identity Not on file Sexual Orientation Not on file documented as of this encounter Miscellaneous Notes * Cerner Conversion Note - Historical ProviderMD - 11/30/2019 2:00 AM CDT Barytes Grinder Details Entered On: 11/30/2019 4:41 EDT Performed On: 11/30/2019 2:00 EDT by Valerie Escobar RN Order Details Transport Mode Order Detail : Bed (including specialty) Isolation Precautions Order Detail : Standard Precautions Order Detail : 0 IV Order Detail : 1 Oxygen Order Detail : 0 Nurse Collect Order Detail : 0 Lift/Transfer : Moderate assist Central Line Order Detail : No Room Service : Appropriate Arterial Line : No Valerie Escobar RN - 11/30/2019 4:40 EDT documented in this encounter Plan of Treatment Not on file documented as of this encounter Visit Diagnoses Not on filedocumented in this encounter
--- OUTSIDE RECORDS SUMMARY | 2025-06-19 10:14 | XMS_ITS | Encounter Summary ---
Author Organization [employer] ([place], [place], [place], [place], [place]) Address [address] [place] [address] Care Team Providers Care Shell Mold Bonder Name Role Phone Unavailable Primary Care Provider Unavailabl e Encounter Details Date Type Department Care Team (Late st Contact Info) Description 11/27/2019 Transcribed Document [facility] [place] [address] [place] [address] ProviderMaribel MD [address] [place] [address] Social History Tobacco Use Types Packs/Day Years Used Date Smoking Tobacco: Never Assessed Comments Unknown Sex and Gender Information Value Date Recorded Sex Assigned at Not on file Legal Sex Female 4:40 PM CDT Gender Identity Not on file Sexual Orientation Not on file documented as of this encounter Miscellaneous Notes * Cerner Conversion Note - Historical ProviderMD - 11/27/2019 5:00 AM CDT Chart Check - Review Order Profile Entered On: 11/27/2019 6:25 EDT Performed On: 11/27/2019 5:00 EDT by Lynne Costello, RN Chart Check Powerplans Initiated/Discontinued as Appropriate : Yes All Active Orders Reviewed : Yes Lynne Costello RN - 11/27/2019 6:25 EDT documented in this encounter Plan of Treatment Not on file documented as of this encounter Visit Diagnoses Not on filedocumented in this encounter
--- OUTSIDE RECORDS SUMMARY | 2025-06-19 10:14 | XMS_ITS | Encounter Summary ---
Author Organization [employer] ([place], [place], [place], [place], [place]) Address [address] [place] [address] Care Team Providers Care Extension Supervisor Name Role Phone Unavailable Primary Care Provider Unavailabl e Encounter Details Date Type Department Care Team (Late st Contact Info) Description 11/30/2019 Transcribed Document [facility] [place] [facility] [place] [address] ProviderMaribel MD [facility] [place] [address] Social History Tobacco Use Types Packs/Day Years Used Date Smoking Tobacco: Never Assessed Comments Unknown Sex and Gender Information Value Date Recorded Sex Assigned at Not on file Legal Sex Female 4:40 PM CDT Gender Identity Not on file Sexual Orientation Not on file documented as of this encounter Miscellaneous Notes * Cerner Conversion Note - Maribel Batista MD - 11/30/2019 2:25 PM CDT On Going Discharge Planning Entered On: 11/30/2019 14:26 EDT Performed On: 11/30/2019 14:25 EDT by JOHN HOLDEN RN-Leather StitcherCage Supervisor Progress Note Discharge Arrangements : Patient Post-Acute Information Patient Name: SHANTELLE DIAZ Gender: Female : 53 Age: 64 Years No Post-Acute Placement(s) Listed No Post-Acute Service(s) Listed No [place] Referral(s) Listed Discharge Options Discussed with Patient : Discharge transportation, DME, Outpatient services, Short term rehabilitation Barriers to Discharge Identified : Clinical Condition of Patient, Follow-Up appointments needed Barriers to Discharge Unresolved : Clinical Condition of Patient Patient Offered Choice/Affiliations Explained : No JOHN HOLDEN RN-Leather Stitcher - 11/30/2019 14:25 EDT Narrative Progress Note Narrative Progress Note : Confirmed with [facility] acceptance of patient. Will notify and send updates when patient dc from hospital.............sds Historical Progress Note : No MDR with this provider this AM. MANUEL spoke with John at [facility] who states they have no beds (patient's sister is a nurse here), but sent to their liasion (also liasion for the [facility]). MANUEL spoke with Castillo at [facility] who states they have no beds at this time, but anticipating some coming available this week. Castillo stated they were under the impression that patient was going to remain inpatient until a bed in their facility came open. MANUEL apologized and advised was unaware of this plan, but there were also no immediate plans for discharge this date. Castillo took MANUEL's phone number and states she will call with updates. Rowan Hudson RN-GANG PLANK WORKMAN - 11/29/19 09:13:30 No MDR with this provider this AM. MANUEL spoke with John at [facility] who states they have no beds (patient's sister is a nurse here), but sent to their liasion (also liasion for the [facility]). MANUEL spoke with Castillo at [facility] who states they have no beds at this time, but anticipating some coming available this week. Castillo stated they were under the impression that patient was going to remain inpatient until a bed in their facility came open. MANUEL apologized and advised was unaware of this plan, but there were also no immediate plans for discharge this date. Castillo took MANUEL's phone number and states she will call with updates. CM received call from liasion for the [facility] who states patient will need COVID19 testing, but they may have a bed for her at [facility]. CM will discuss with patient, as patient previously indicated she was only interested in two facilities and will follow up with liasion. CM spoke with patient who indicates she has decided to discharge home with , rather than to a SNF for rehab. Resumption orders sent to [facility]. CM will continue to follow. Rowan Hudson RN-GANG PLANK WORKMAN - 11/29/19 14:17:25 No MDR with this provider this AM. MANUEL spoke with John at [facility] who states they have no beds (patient's sister is a nurse here), but sent to their liasion (also liasion for the [facility]). CM spoke with Castillo at [facility] who states they have no beds at this time, but anticipating some coming available this week. Castillo stated they were under the impression that patient was going to remain inpatient until a bed in their facility came open. CM apologized and advised was unaware of this plan, but there were also no immediate plans for discharge this date. Castillo took CM's phone number and states she will call with updates. CM received call from liasion for the [facility] who states patient will need COVID19 testing, but they may have a bed for her at [facility]. CM will discuss with patient, as patient previously indicated she was only interested in two facilities and will follow up with liasion. Rowan Hudson RN-GANG PLANK WORKMAN - 11/29/19 09:39:45 Spoke to patient in room, would like short term rehab, but only at [facility] or [facility]. Family was told there are no rooms available, however, will send referrals through [facility]. Patient does not want [facility] due being long distance from her home. Patient states if she cannot go to [facility] at either one of her chosen facilities, then she will dc to home with [facility]. Already has RW at home for use..........sds JOHN HOLDEN RN-Leather Stitcher - 11/28/19 14:27:17 JOHN HOLDEN RN-Leather Stitcher - 11/30/2019 14:25 EDT documented in this encounter Plan of Treatment Not on file documented as of this encounter Visit Diagnoses Not on filedocumented in this encounter
--- OUTSIDE RECORDS SUMMARY | 2025-06-19 10:14 | XMS_ITS | Encounter Summary ---
Author Organization [employer] ([place], [place], [place], [place], [place]) Address [address] [place] [address] Care Team Providers Care Trend Investigator Name Role Phone Unavailable Primary Care Provider Unavailabl e Encounter Details Date Type Department Care Team (Late st Contact Info) Description 11/29/2019 Transcribed Document [facility] [place] [address] [place] [address] ProviderMaribel MD [facility] [place] [address] Social History Tobacco Use Types Packs/Day Years Used Date Smoking Tobacco: Never Assessed Comments Unknown Sex and Gender Information Value Date Recorded Sex Assigned at Not on file Legal Sex Female 4:40 PM CDT Gender Identity Not on file Sexual Orientation Not on file documented as of this encounter Miscellaneous Notes * Cerner Conversion Note - Historical ProviderMD - 11/29/2019 2:00 AM CDT Hotel Reservationist Details Entered On: 11/29/2019 1:17 EDT Performed On: 11/29/2019 2:00 EDT by Elizabeth Be RN Order Details Transport Mode Order Detail : Bed (including specialty) Isolation Precautions Order Detail : Contact precautions, Standard Precautions Order Detail : 0 IV Order Detail : 1 Oxygen Order Detail : 0 Nurse Collect Order Detail : 0 Lift/Transfer : Moderate assist Central Line Order Detail : No Room Service : Not Appropriate Arterial Line : No Elizabeth Be RN - 11/29/2019 1:17 EDT documented in this encounter Plan of Treatment Not on file documented as of this encounter Visit Diagnoses Not on filedocumented in this encounter
--- OUTSIDE RECORDS SUMMARY | 2025-06-19 10:14 | XMS_ITS | Encounter Summary ---
Author Organization [employer] ([place], [place], [place], [place], [place]) Address [address] [place] [address] Care Team Providers Care Ratoprinter Name Role Phone Unavailable Primary Care Provider Unavailabl e Encounter Details Date Type Department Care Team (Late st Contact Info) Description 11/29/2019 Transcribed Document [facility] [place] [address] [place] [address] ProviderMaribel MD [address] [place] [address] Social History Tobacco Use Types Packs/Day Years Used Date Smoking Tobacco: Never Assessed Comments Unknown Sex and Gender Information Value Date Recorded Sex Assigned at Not on file Legal Sex Female 4:40 PM CDT Gender Identity Not on file Sexual Orientation Not on file documented as of this encounter Miscellaneous Notes * Cerner Conversion Note - Historical ProviderMD - 11/29/2019 2:00 PM CDT Spiritual Care Short Form Entered On: 11/29/2019 14:33 EDT Performed On: 11/29/2019 14:00 EDT by JARED GARCÍA Chaplain-Non Cert General Information, Spiritual Care Spiritual Care Referred by : Deputy Court initiated Reason for Visit : Initial Ministry Provided to : Patient Intervention/Comment/Summary Points : Shantelle is a 64-year-old patient who is seen alert and awake. She just completed a therapy session with PT and presents as pleasant. She expresses no concerns and accepts prayer. Provided pastoral care, empathic listening, emotional support and prayer. Holiness Preference : Other: JARED Kyle Chaplain-Non Cert - 11/29/2019 14:32 EDT documented in this encounter Plan of Treatment Not on file documented as of this encounter Visit Diagnoses Not on filedocumented in this encounter
--- OUTSIDE RECORDS SUMMARY | 2025-06-19 10:14 | XMS_ITS | Clinical Summary ---
Author Organization [facility] Address [address] [place] [address] Phone Care Team Providers Care Plate Embosser Name Role Phone Melody SIMS, Mil Rivas [phone] Conditions or Problems Problem Name Problem Code Onset Date Status Entry Date Provider Comment Standard Description Annotate OSTEOARTHR ITIS, HIP 204149429 (SNOMED CT) Active Mil Oliver MD Osteoarthritis of hip LEG PAIN, RIGHT 44243294 (SNOMED CT) Active Mil Oliver MD Pain in lower limb PAIN IN LIMB 81431708 (SNOMED CT) Active Mil Oliver MD Pain in limb DISC DISEASE, LUMBAR 739776178 (SNOMED CT) Active Aleja Perez Disorder of lumbar disc Medications Medication Instructions Start Date Stop Date Generic Name NDC Provider FLEXERIL 10 MG TABS Take 1 tab po tid CYCLOBENZAPRINE HCL [id number] Logan Soto MD Medications Administered No information available. Allergies, Adverse Reactions, Alerts No information available. Results No information available. Plan of Care Type Date Detail Pending order MRI Hips Pending order LYUBOV Series=1.3 I njections Procedures No information available. Vital Signs Date Name Value Unit Description BP Diastolic 72 mm[Hg] blood pressu re, diastolic BP Systolic 134 mm[Hg] blood pressur e, systolic Body Temperature 97.7 [degF] temperat ure E&M Heart Rate 76 /min pulse rate Height 67 [in_us] height E&M Weight Measured 155 [lb_av] weight E& M Weight Measured 155 [lb_av] weight E& M Immunizations No information available. Advance Directives No information available.
--- OUTSIDE RECORDS SUMMARY | 2025-06-19 10:14 | XMS_ITS | Encounter Summary ---
Author Organization [employer] ([place], [place], [place], [place], [place]) Address [address] [place] [id number] Care Team Providers Care Energy Conservation Specialist Name Role Phone Unavailable Primary Care Provider Unavailabl e Encounter Details Date Type Department Care Team (Late st Contact Info) Description 11/30/2019 Transcribed Document [facility] Family Medicine [facility] [place] [address] ProviderMaribel MD [facility] [place] [address] Social History Tobacco Use Types Packs/Day Years Used Date Smoking Tobacco: Never Assessed Comments Unknown Sex and Gender Information Value Date Recorded Sex Assigned at Not on file Legal Sex Female 4:40 PM CDT Gender Identity Not on file Sexual Orientation Not on file documented as of this encounter Miscellaneous Notes * Cerner Conversion Note - Maribel Batista MD - 11/30/2019 3:44 PM CDT [place] [id number] DIONNE DIAZE ANTONIO :1955 Visit Time:11/26/2019 Your Visit Summary Your Care Team Admitting Physician - GIOVANNY MONROE MD-INT Attending Physician - GIOVANNY MONROE MD-INT Primary Care Physician - SITA WALTERS (REF)MD Referring Physician - JHONATHAN BENJAMIN -INT Your Diagnosis GERD - Gastro-esophageal reflux disease H/O: TIA 12/2013 migraine PFO (patent foramen ovale) Recurrent Right RTHA dislocation, Unspecified dislocation of right hip, initial encounter, Unspecified dislocation of right hip, initial encounter Status post right total hip arthroplasty revision These Are Your Goals want to get rid of the dislocation and get better - Met Discharge Vitals Temperature 36.2 ??C Heart Rate (Monitored) 98 Respiratory Rate 16 Blood Pressure 138/62 What to do next Instructions From Your Care Team [facility] after discharge from hospital, Discharge Follow Up Instructions: Follow-up with Dr. Arora as scheduled, Order Comment: Follow-up with PCP as scheduled or PRN Activity: As perDr. Arora recommendations, Discharge Activity: Other (use Special Instructions) Diet: Discharge Diet: Resume usual diet as tolerated Follow-Up Appointments Follow Up with JULIO STEWART MD-ORT When 12/13/2019 09:45 AM EDT Where: [address] [facility] [address] [place] [address]- Medications What How Much When Instructions Next Dose acetaminophen-hydrocodone (Steinauer 7.5 mg-325 mg oral tablet) 1 Tablet(s) Oral Every 6 Hours as needed for for pain Duration: 14 Day(s) as needed aspirin (aspirin 81 mg oral delayed release tablet) 1 Tablet(s) Oral Two Times A Day Duration: 30 Day(s) Printed Prescription tonight Take your medications faithfully. Do NOT skip medication. Do NOT stop taking medications without the direction of a physician. Carry a list of your medications with you at all times, and take this medication list with you to your first follow up visit. Report any side effects. Avoid herbal remedies unless discussed with your physician. As part of your treatment plan, your physician may have prescribed a limited course of a controlled substance. This medication may be given to help people with moderate or severe pain or for other medical conditions, but there are risks involved with treatment. Common side effects may include nausea, constipation, drowsiness, sweating, itching, dry mouth, and rash. More serious side effects may include cognitive and motor impairment, like problems with thinking, concentrating, alertness, and movement (e.g. slowed reflexes), and driving and operating heavy machinery can be dangerous. It is important for you to talk to your physician if you have these side effects or questions. These controlled substances can produce physical dependence and be habit-forming if taken for an extended period of time, which means that the body has gotten used to them and may experience withdrawal symptoms if they are abruptly stopped. Withdrawal symptoms can include runny nose, sweating, goose bumps, diarrhea, abdominal cramping, rapid heartbeat, difficulty sleeping, and nervousness. Please dispose of unused and medications per your retail pharmacy guidance. Allergies No Known Allergies Immunizations This Visit No Immunizations Found Education Materials What to expect after the Procedure: After the procedure, it is common to have: ??? Pain and swelling. ??? A small amount of blood or clear fluid coming from your incision for up to 7 days ??? It is normal to have a moderate amount of bleeding from the site of the drain that was pulled on the morning after surgery. You can hold pressure on the area for 3-5 minutes and cover with a bandage as needed. Diet: ??? Resume usual diet ??? No alcoholic beverages while taking pain medication ??? Drink 8-10 glasses of water a day to prevent constipation from pain medication ??? Increase fiber to help prevent constipation. Straining can cause increased pressure and pain in your incision area ??? Increase protein to promote healing Driving: ??? Do not drive until your health care provider approves. Ask your health care provider when it is safe to drive if you have an immobilizer on your knee. ??? Do not drive or operate heavy machinery while taking prescription pain medicine. ??? Do not drive for 24 hours if you received a sedative. Activity: ??? Do not lift anything that is heavier than 10 lb (4.5 kg) until your health care provider approves. ??? No strenuous activity ??? Avoid high-impact activities, including running, jumping rope, and jumping jacks. ??? Avoid sitting for a long time without moving. Get up and move around at least every few hours. ??? Keep legs elevated while seated and place surgery leg on 2-3 pillows, this will decrease swelling ??? Continue using walker until cleared by physical therapy Bathing: ??? Do not take baths, swim, or use a hot tub for one month after surgery. ??? May shower on the third day after surgery by covering incision with Glad Brand Press and Seal saran wrap. After showering, dry off completely BEFORE removing saran wrap. ??? Use Press and Seal saran wrap to shower for one month after surgery ??? You must be seated to shower until you are no longer using the walker Other: ??? Use ice therapy for 20-30 minutes at a time and leave off for 20-30 minutes at a time. Always keep a towel or cloth between the ice pack and your skin ??? Continue to use Incentive Spirometer 10 times an hour while awake for one month to help prevent pneumonia Contact a health care provider if: ??? You have more redness, swelling, or pain around your incision. ??? You have more fluid or blood coming from your incision. ??? Your incision or drain site feels warm to the touch. ??? You have pus or a bad smell coming from your incision. ??? You have a fever. ??? Your incision breaks open after your health care provider removes your sutures, skin glue, or adhesive tape. ??? Your prosthesis feels loose. ??? You have knee pain that does not go away. DVT: Blood Clot Blood clots are a common risk after an orthopedic surgery Symptoms: ??? Swelling of your leg or arm, especially if one side is much worse. ??? Warmth and redness of your leg or arm, especially if one side is much worse. ??? Pain in your arm or leg. If the clot is in your leg, symptoms may be more noticeable or worse when you stand or walk. ??? A feeling of pins and needles, if the clot is in the arm. The symptoms of a DVT that has traveled to the lungs (pulmonary embolism, PE) usually start suddenly and include: ??? Shortness of breath while active or at rest. ??? Coughing or coughing up blood or blood-tinged mucus. ??? Chest pain that is often worse with deep breaths. ??? Rapid or irregular heartbeat. ??? Feeling light-headed or dizzy. ??? Fainting. ??? Feeling anxious. ??? Sweating. There may also be pain and swelling in a leg if that is where the blood clot started. How is this prevented? Exercise regularly. For at least 30 minutes every day, engage in: -Activity that involves moving your arms and legs. -Activity that encourages good blood flow through your body by increasing your heart rate. ??? Exercise your arms and legs every hour during long-distance travel (over 4 hours). ??? Drink plenty of water and avoid drinking alcohol while traveling. ??? Avoid sitting or lying in bed for long periods of time without moving your legs. ??? Maintain a weight that is appropriate for your height. Ask your health care provider what weight is healthy for you. ??? If you are a woman who is over 35 years of age, avoid unnecessary use of medicines that contain estrogen. These include control pills. ??? Do not smoke, especially if you take estrogen medicines. If you need help quitting, ask your health care provider. ??? Wear compression stockings (if told by your health care provider) to help prevent blood clots from forming. High Fiber/High Protein Diet High fiber foods: To prevent constipation Grains Whole-grain breads. Multigrain cereal. Oats and oatmeal. Brown rice. Barley. Bulgur wheat. Millet. Bran muffins. Popcorn. [place] wafer crackers. Vegetables Sweet potatoes. Spinach. Kale. Artichokes. Cabbage. Broccoli. Green peas. Carrots. Squash. Fruits Berries. Pears. Apples. Oranges. Avocados. Prunes and raisins. Dried figs. Meats and Other Protein Sources [place], kidney, najera, and soy beans. Split peas. Lentils. Nuts and seeds. Dairy Fiber-fortified yogurt. Beverages Fiber-fortified soy milk. Fiber-fortified orange juice. Other Fiber bars. High-protein foods: To promote healing High-protein foods contain 4 grams (4 g) or more of protein per serving. They include: ??? Beef, ground sirloin (cooked) ??? 3 oz have 24 g of protein. ??? Cheese (hard) ??? 1 oz has 7 g of protein. ??? Chicken breast, boneless and skinless (cooked) ??? 3 oz have 13.4 g of protein. ??? Cottage cheese ??? 1/2 cup has 13.4 g of protein. ??? Egg ??? 1 egg has 6 g of protein. ??? Fish, filet (cooked) ??? 1 oz has 6???7 g of protein. ??? Garbanzo beans (canned or cooked) ??? 1/2 cup has 6???7 g of protein. ??? Kidney beans (canned or cooked) ??? 1/2 cup has 6???7 g of protein. ??? [place] (cooked) ??? 3 oz has 24 g of protein. ??? Milk ??? 1 cup (8 oz) has 8 g of protein. ??? Nuts (peanuts, pistachios, almonds) ??? 1 oz has 6 g of protein. ??? Peanut butter ??? 1 oz has 7???8 g of protein. ??? Pork tenderloin (cooked) ??? 3 oz has 18.4 g of protein. ??? Pumpkin seeds ??? 1 oz has 8.5 g of protein. ??? Soybeans (roasted) ??? 1 oz has 8 g of protein. ??? Soybeans (cooked) ??? 1/2 cup has 11 g of protein. ??? Soy milk ??? 1 cup (8 oz) has 5???10 g of protein. ??? Soy or vegetable ren ??? 1 ren has 11 g of protein. ??? [place] seeds ??? 1 oz has 5.5 g of protein. ??? Tofu (firm) ??? 1/2 cup has 20 g of protein. ??? Tuna (canned in water) ??? 3 oz has 20 g of protein. ??? Yogurt ??? 6 oz has 8 g of protein. Fall Prevention ??? Use night lights. ??? Install grab bars by the toilet and in the tub and shower. Do not use towel bars as grab bars. ??? Use non-skid mats or decals on the floor of the tub or shower. ??? If you need to sit down while you are in the shower, use a plastic, non-slip stool. ??? Keep the floor dry. Immediately clean up any water that spills on the floor. ??? Remove soap buildup in the tub or shower on a regular basis. ??? Remove throw rugs and other tripping hazards from the floor. ??? Place frequently used items in [id number] places ??? Keep electrical cables out of the way. ??? Do not leave any items on the stairs. ??? Make sure that there are handrails on both sides of the stairs. Fix handrails that are broken or loose. Make sure that handrails are as long as the stairways. ??? Check any carpeting to make sure that it is firmly attached to the stairs. Fix any carpet that is loose or worn. ??? Avoid having throw rugs at the top or bottom of stairways, or secure the rugs with carpet tape to prevent them from moving. ??? Wear closed-toe shoes that fit well and support your feet. Wear shoes that have rubber soles or low heels. ??? Use mobility aids as needed, such as canes, walkers, scooters, and crutches. ??? Turn on lights if it is dark. Replace any light bulbs that burn out. ??? Set up furniture so that there are clear paths. Keep the furniture in the same spot. ??? Be aware of any and all pets. ??? Review your medicines with your healthcare provider. Some medicines can cause dizziness or changes in blood pressure, which increase your risk of falling. Hand Washing You should wash your hands whenever you think they are dirty. You should also wash your hands: ??? After: ??? Working or playing outside. ??? Touching an animal or its toys or leash. ??? Handling livestock. ??? Using the bathroom. ??? Using household boat cleaning supervisor or toxic chemicals. ??? Touching or taking out the garbage. ??? Touching anything dirty around your home. ??? Handling soiled clothes or rags. ??? Taking care of a sick child. This includes touching used tissues, toys, and clothes. ??? Sneezing, coughing, or blowing your nose. ??? Using public transportation. ??? Shaking hands. ??? Using a phone, including your mobile phone. ??? Touching money. ??? Before and after: ??? Preparing food. ??? Feeding a baby or young child. ??? Eating. ??? Visiting or taking care of someone who is sick. ??? Changing a diaper. ??? Changing a bandage (dressing) or taking care of an injury or wound. ??? Giving or taking medicine. If soap and clean water are not available, use an alcohol-based wipe, spray, or hand gel. Use a hand-sanitizing agent that contains at least 60% alcohol. If you are preparing food, hand sanitizers are not recommended as a substitute for hand washing. Walker Use To Walk With a Front-Wheeled Walker: 1. Slide your front-wheeled walker one step-length in front of you. Your toes should be farther forward than the back legs of your walker. 2. Hold on to the walker for support, and step your weaker (surgery) leg into the middle of the walker. 3. Step your stronger leg forward to land next to your weaker leg. 4. Repeat the process for each step. ??? Always keep both feet within the width of the walker's legs or wheels. ??? When using your walker, you should not feel like you need to lean forward or to the side to keep your hands on the handgrips. ??? Make sure you are following any weight-bearing instructions that your health care provider has given you. ??? Be careful not to let the walker get too far ahead of you as you walk. ??? If your walker does not glide well over carpet, consider cutting an X into two tennis balls and placing the balls over the back legs of your walker. How to use a walker on a curb or step To Use a Walker to Step Up: 1. Put all four legs of the walker on the curb or step. 2. Get your feet as close to the curb or step as you can. 3. Test the steadiness of the walker by pressing down on the handgrips. 4. If the walker is steady, press down on it with your hands as you step up with your stronger leg. 5. Step up with your weaker leg. To Use a Walker to Step Down: 1. Put all four legs of the walker on the surface that is lower than the curb or step. 2. Get your feet as close to the curb or step as you can. 3. Test the steadiness of the walker by pressing down on the handgrips. 4. If the walker is steady, press down on it with your hands as you step down with your weaker leg. 5. Step down with your stronger leg. Dressing stays in place for 7 days then remove and leave open to air. Must take aspirin 81mg twice a day for 45 days. acetaminophen and hydrocodone (a SEET a MIN oh aby and ovidio MARTINI done) Hycet, Lorcet, Steinauer, Verdrocet, Vicodin, Xodol, Zamicet What is the most important information I should know about acetaminophen and hydrocodone? MISUSE OF OPIOID MEDICINE CAN CAUSE ADDICTION, OVERDOSE, OR . Keep the medication in a place where others cannot get to it. Taking opioid medicine during may cause life-threatening withdrawal symptoms in the . Fatal side effects can occur if you use opioid medicine with alcohol, or with other drugs that cause drowsiness or slow your breathing. Stop taking this medicine and call your doctor right away if you have skin redness or a rash that spreads and causes blistering and peeling. What is acetaminophen and hydrocodone? Acetaminophen and hydrocodone is a combination medicine used to relieve moderate to severe pain. Acetaminophen and hydrocodone may also be used for purposes not listed in this medication guide. What should I discuss with my healthcare provider before taking acetaminophen and hydrocodone? You should not use this medicine if you are allergic to acetaminophen or hydrocodone, or if you have: ?? severe asthma or breathing problems; or ?? a blockage in your stomach or intestines. Tell your doctor if you have ever had: ?? breathing problems, sleep apnea; ?? liver disease; ?? a drug or alcohol addiction; ?? kidney disease; ?? a head injury or seizures; ?? urination problems; or ?? problems with your thyroid, pancreas, or gallbladder. If you use opioid medicine while you are , your baby could become dependent on the drug. This can cause life-threatening withdrawal symptoms in the baby after it is born. Babies born dependent on opioids may need medical treatment for several weeks. Do not breastfeed. This medicine can pass into breast milk and cause drowsiness, breathing problems, or in a nursing baby. How should I take acetaminophen and hydrocodone? Follow all directions on your prescription label. Never take this medicine in larger amounts, or for longer than prescribed. An overdose can damage your liver or cause . Tell your doctor if you feel an increased urge to use more of this medicine. Never share this medicine with another person, especially someone with a history of drug abuse or addiction. MISUSE CAN CAUSE ADDICTION, OVERDOSE, OR . Keep the medicine in a place where others cannot get to it. Selling or giving away acetaminophen and hydrocodone is against the law. Measure liquid medicine carefully. Use the dosing syringe provided, or use a medicine dose-measuring device (not a kitchen spoon). If you need surgery or medical tests, tell the doctor ahead of time that you are using this medicine. You should not stop using this medicine suddenly. Follow your doctor's instructions about tapering your dose. Store at room temperature away from moisture and heat. Keep track of your medicine. You should be aware if anyone is using it improperly or without a prescription. Do not keep leftover opioid medication. Just one dose can cause in someone using this medicine accidentally or improperly. Ask your pharmacist where to locate a drug take-back disposal program. If there is no take-back program, flush the unused medicine down the toilet. What happens if I miss a dose? Since this medicine is used for pain, you are not likely to miss a dose. Skip any missed dose if it is almost time for your next dose. Do not use two doses at one time. What happens if I overdose? Seek emergency medical attention or call the Poison Help line at . An overdose of acetaminophen and hydrocodone can be fatal. The first signs of an acetaminophen overdose include loss of appetite, nausea, vomiting, stomach pain, sweating, and confusion or weakness. Later symptoms may include pain in your upper stomach, dark urine, and yellowing of your skin or the whites of your eyes. Overdose can also cause severe muscle weakness, pinpoint pupils, very slow breathing, extreme drowsiness, or coma. What should I avoid while taking acetaminophen and hydrocodone? Avoid driving or operating machinery until you know how this medicine will affect you. Dizziness or drowsiness can cause falls, accidents, or severe injuries. Do not drink alcohol. Dangerous side effects or could occur. Ask a doctor or pharmacist before using any other medicine that may contain acetaminophen (sometimes abbreviated as APAP). Taking certain medications together can lead to a fatal overdose. What are the possible side effects of acetaminophen and hydrocodone? Get emergency medical help if you have signs of an allergic reaction: hives; difficulty breathing; swelling of your face, lips, tongue, or throat. Opioid medicine can slow or stop your breathing, and may occur. A person caring for you should seek emergency medical attention if you have slow breathing with long pauses, blue colored lips, or if you are hard to wake up. In rare cases, acetaminophen may cause a severe skin reaction that can be fatal. This could occur even if you have taken acetaminophen in the past and had no reaction. Stop taking this medicine and call your doctor right away if you have skin redness or a rash that spreads and causes blistering and peeling. Call your doctor at once if you have: ?? noisy breathing, sighing, shallow breathing, breathing that stops during sleep; ?? a light-headed feeling, like you might pass out; ?? liver problems--nausea, upper stomach pain, tiredness, loss of appetite, dark urine, adrien-colored stools, jaundice (yellowing of the skin or eyes); or ?? low cortisol levels-- nausea, vomiting, loss of appetite, dizziness, worsening tiredness or weakness. Seek medical attention right away if you have symptoms of serotonin syndrome, such as: agitation, hallucinations, fever, sweating, shivering, fast heart rate, muscle stiffness, twitching, loss of coordination, nausea, vomiting, or diarrhea. Serious side effects may be more likely in older adults and those who are overweight, malnourished, or debilitated. Long-term use of opioid medication may affect fertility (ability to have children) in men or women. It is not known whether opioid effects on fertility are permanent. Common side effects include: ?? dizziness, drowsiness, feeling tired; ?? nausea, vomiting, stomach pain; ?? constipation; or ?? headache. This is not a complete list of side effects and others may occur. Call your doctor for medical advice about side effects. You may report side effects to FDA at 2-980-IQH-7349. What other drugs will affect acetaminophen and hydrocodone? You may have breathing problems or withdrawal symptoms if you start or stop taking certain other medicines. Tell your doctor if you also use an antibiotic, antifungal medication, heart or blood pressure medication, seizure medication, or medicine to treat HIV or hepatitis C. Opioid medication can interact with many other drugs and cause dangerous side effects or . Be sure your doctor knows if you also use: ?? cold or allergy medicines, bronchodilator asthma/COPD medication, or a diuretic ('water pill'); ?? medicines for motion sickness, irritable bowel syndrome, or overactive bladder; ?? other narcotic medications--opioid pain medicine or prescription cough medicine; ?? a sedative like Valium--diazepam, alprazolam, lorazepam, Xanax, Klonopin, Versed, and others; ?? drugs that make you sleepy or slow your breathing--a sleeping pill, muscle relaxer, medicine to treat mood disorders or mental illness; ?? drugs that affect serotonin levels in your body--a stimulant, or medicine for depression, Parkinson's disease, migraine headaches, serious infections, or nausea and vomiting. This list is not complete. Other drugs may affect acetaminophen and hydrocodone, including prescription and [id number] medicines, vitamins, and herbal products. Not all possible interactions are listed here. Where can I get more information? Your doctor or pharmacist can provide more information about acetaminophen and hydrocodone. Remember, keep this and all other medicines out of the reach of children, never share your medicines with others, and use this medication only for the indication prescribed. Every effort has been made to ensure that the information provided by [employer]') is accurate, up-to-date, and complete, but no guarantee is made to that effect. Drug information contained herein may be time sensitive. [employer] information has been compiled for use by healthcare practitioners and consumers in the [place] and therefore [employer] does not warrant that uses outside of the [place] are appropriate, unless specifically indicated otherwise. [employer]'s drug information does not endorse drugs, diagnose patients or recommend therapy. [employer] drug information is an informational resource designed to assist licensed healthcare practitioners in caring for their patients and/or to serve consumers viewing this service as a supplement to, and not a substitute for, the expertise, skill, knowledge and judgment of healthcare practitioners. The absence of a warning for a given drug or drug combination in no way should be construed to indicate that the drug or drug combination is safe, effective or appropriate for any given patient. [employer] does not assume any responsibility for any aspect of healthcare administered with the aid of information [employer] provides. The information contained herein is not intended to cover all possible uses, directions, precautions, warnings, drug interactions, allergic reactions, or adverse effects. If you have questions about the drugs you are taking, check with your doctor, nurse or pharmacist. Copyright 2758-2119 [employer]. Version: 16.01. Revision Date: 08/31/2019. aspirin (oral) ( pir in) Arthritis Pain, Aspi-Cor, Aspir 81, Aspir-Low, Rolando Plus, Bufferin, Durlaza, Ecotrin, Ecpirin, Fasprin, Halfprin, Miniprin What is the most important information I should know about aspirin? You should not use aspirin if you have a bleeding disorder such as hemophilia, a recent history of stomach or intestinal bleeding, or if you are allergic to an NSAID (non-steroidal anti-inflammatory drug). Aspirin can cause Kayley's syndrome, a serious and sometimes fatal condition in children. What is aspirin? Aspirin is a salicylate (cl-LVO-qu-ate) that is used to treat pain, and reduce fever or inflammation. Aspirin is sometimes used to treat or prevent heart attacks, strokes, and chest pain (angina). Aspirin should be used for cardiovascular conditions only under the supervision of a doctor. Aspirin may also be used for purposes not listed in this medication guide. What should I discuss with my healthcare provider before taking aspirin? Do not give this medicine to a child or teenager with a fever, flu symptoms, or chickenpox. Aspirin can cause Kayley's syndrome, a serious and sometimes fatal condition in children. You should not use aspirin if you are allergic to it, or if you have: ?? a recent history of stomach or intestinal bleeding; ?? a bleeding disorder such as hemophilia; or ?? if you have ever had an asthma attack or severe allergic reaction after taking aspirin or an NSAID (non-steroidal anti-inflammatory drug). Tell your doctor if you have ever had: ?? asthma or seasonal allergies; ?? stomach ulcers; ?? liver disease; ?? kidney disease; ?? a bleeding or blood clotting disorder; ?? gout; or ?? heart disease, high blood pressure, or congestive heart failure. Taking aspirin during late may cause bleeding in the mother or the baby during delivery. Tell your doctor if you are or plan to become . You should not breastfeed while using this medicine. How should I take aspirin? Use exactly as directed on the label, or as prescribed by your doctor. Always follow directions on the medicine label about giving aspirin to a child. Take with food if aspirin upsets your stomach. You must chew the chewable tablet before you swallow it. Do not crush, chew, break, or open an enteric-coated or delayed/extended-release pill. Swallow it whole. If you use the orally disintegrating tablet, follow all dosing instructions provided with your medicine. If you need surgery, tell your surgeon you currently use this medicine. You may need to stop for a short time. Do not use aspirin if you smell a strong vinegar odor in the aspirin bottle. The medicine may no longer be effective. Store at room temperature away from moisture and heat. What happens if I miss a dose? Since aspirin is used when needed, you may not be on a dosing schedule. Skip any missed dose if it's almost time for your next dose. Do not use two doses at one time. What happens if I overdose? Seek emergency medical attention or call the Poison Help line at . Overdose symptoms may include stomach pain, vomiting, diarrhea, vision or hearing problems, fast or slow breathing, or confusion. What should I avoid while taking aspirin? Avoid alcohol. Heavy drinking can increase your risk of stomach bleeding. If you are taking aspirin to prevent heart attack or stroke, avoid also taking ibuprofen (Advil, Motrin). Ibuprofen can make aspirin less effective in protecting your heart and blood vessels. If you must use both medications, ask your doctor how far apart your doses should be. Ask a doctor or pharmacist before using other medicines for pain, fever, swelling, or cold/flu symptoms. They may contain ingredients similar to aspirin (such as magnesium salicylate, ibuprofen, ketoprofen, or naproxen). What are the possible side effects of aspirin? Get emergency medical help if you have signs of an allergic reaction: hives; difficult breathing; swelling of your face, lips, tongue, or throat. Stop using aspirin and call your doctor at once if you have: ?? ringing in your ears, confusion, hallucinations, rapid breathing, seizure (convulsions); ?? severe nausea, vomiting, or stomach pain; ?? bloody or tarry stools, coughing up blood or vomit that looks like coffee grounds; ?? fever lasting longer than 3 days; or ?? swelling, or pain lasting longer than 10 days. Common side effects may include: ?? upset stomach, heartburn; ?? drowsiness; or ?? mild headache. This is not a complete list of side effects and others may occur. Call your doctor for medical advice about side effects. You may report side effects to FDA at 7-068-MRG-1456. What other drugs will affect aspirin? Ask your doctor before using aspirin if you take an antidepressant. Taking certain antidepressants with aspirin may cause you to bruise or bleed easily. Ask a doctor or pharmacist before using aspirin with any other medications, especially: ?? a blood thinner (warfarin, Coumadin, Jantoven), or other medication used to prevent blood clots; or ?? other salicylates such as Nuprin Backache Caplet, Kaopectate, KneeRelief, Pamprin Cramp Formula, Pepto-Bismol, Tricosal, Trilisate, and others. This list is not complete. Other drugs may affect aspirin, including prescription and [id number] medicines, vitamins, and herbal products. Not all possible drug interactions are listed here. Where can I get more information? Your pharmacist can provide more information about aspirin. Remember, keep this and all other medicines out of the reach of children, never share your medicines with others, and use this medication only for the indication prescribed. Every effort has been made to ensure that the information provided by [employer]. ('[employer]') is accurate, up-to-date, and complete, but no guarantee is made to that effect. Drug information contained herein may be time sensitive. [employer] information has been compiled for use by healthcare practitioners and consumers in the [place] and therefore [employer] does not warrant that uses outside of the [place] are appropriate, unless specifically indicated otherwise. [employer] drug information does not endorse drugs, diagnose patients or recommend therapy. [employer] drug information is an informational resource designed to assist licensed healthcare practitioners in caring for their patients and/or to serve consumers viewing this service as a supplement to, and not a substitute for, the expertise, skill, knowledge and judgment of healthcare practitioners. The absence of a warning for a given drug or drug combination in no way should be construed to indicate that the drug or drug combination is safe, effective or appropriate for any given patient. [employer] does not assume any responsibility for any aspect of healthcare administered with the aid of information [employer] provides. The information contained herein is not intended to cover all possible uses, directions, precautions, warnings, drug interactions, allergic reactions, or adverse effects. If you have questions about the drugs you are taking, check with your doctor, nurse or pharmacist. Copyright [id number] [employer]. Version: 16.. Revision Date: 10/03/2019. Emergency Awareness and Preventative Care STROKE is an EMERGENCY Every Minute Counts Act FAST and Check for these signs: FACE Does the face look uneven? ARM Does one arm drift down? SPEECH Does their speech sound strange? TIME Call at any sign of stroke Stroke Risk Factors Atrial Fibrillation (irregular heartbeat) Diabetes Family history of stroke Heart Disease Heavy alcohol use High Blood Pressure High Cholesterol Physical inactivity and obesity Smoking Cigarette Smoking The facts are clear, cigarette smoking will shorten your life. Smoking can cause many illnesses along the way. As a healthcare provider, we recommend that you stop smoking. Assistance with quitting is available by contacting 5-157-PEOZ-NOW. This is a free resource providing counseling, support, and referral. Or you may contact your personal physician. National Suicide Prevention Lifeline: The National Suicide Prevention Lifeline is a national network of local crisis centers that provides free and confidential emotional support to people in suicidal crisis or emotional distress 24 hours a day, 7 days a week. Don't Wait! Stop a Heart Attack Before it Starts What is a heart attack? A heart attack is damage or to a part of the heart from severely decreased or lack of blood flow to the heart. Over time, arteries can become narrow from the buildup of fat and cholesterol, which is called plaque. The plaque can rupture causing a blood clot to form. When the blood clot forms, the artery can become severely narrowed or completely blocked, causing a heart attack. Heart attack is the leading cause of in the [place]. 85% of muscle damage occurs within the first 2 hours. Delay in the recognition of heart attack symptoms increases the chances of . Know the early symptoms of a heart attack: Nausea Feeling of fullness in chest Jaw Pain Pain that travels down one or both arms Fatigue/being tired Anxiety Back Pain Chest pressure, squeezing, or discomfort Shortness of breath Sweating, or a cold sweat Feeling of impending doom There are unusual signs of a heart attack, too! Women, the elderly, and diabetics may present with atypical symptoms: Fainting/dizziness Weakness Confusion Risk Factors for a Heart Attack Some heart disease risk factors, such as age and family history, cannot be changed. Others, like smoking and lack of exercise, can be changed. Smoking High Cholesterol High Blood Pressure Family History Obesity Age Gender (Males are at higher risk) Lack of Exercise Diabetes Diet Stress Excessive Alcohol Intake If you or someone you know is experiencing the signs and symptoms of a heart attack, DON???T DELAY. Call immediately and seek help. If someone collapses, perform CPR! Do not attempt to drive if you are having symptoms of heart attack. Hands-Only CPR Why Hands-Only CPR? Hands-Only CPR has been shown to be as effective as conventional CPR for cardiac arrests that occur outside of a hospital. Survival depends on immediately receiving CPR from someone nearby. How do you perform Hands-Only CPR? There are two easy steps: Call if you see a teen or adult collapse Push hard and fast in the center of the chest at a beat of 100 beats per minute. Save a life! 4 WAYS TO GET AHEAD OF SEPSIS SEPSIS is a MEDICAL EMERGENCY. Time matters! Infections put you and your family at risk for a life-threatening condition called sepsis. Sepsis is the body's extreme response to an infection. It is life-threatening, and without timely treatment, sepsis can rapidly lead to tissue damage, organ failure, and . Sepsis happens when an infection you already have-in your skin, lungs, urinary tract or somewhere else-triggers a chain reaction throughout your body. 1 PREVENT INFECTIONS Take good care of chronic conditions. Talk to your doctor about getting the recommended vaccines. 2 PRACTICE GOOD HYGIENE Wash your hands frequently. Keep cuts or open sores clean and covered until they are healed. 3 KNOW THE SYMPTOMS Confusion or disorientation Shortness of breath High heart rate Fever, shivering, or feeling very cold Extreme pain or discomfort Clammy or sweaty skin 4 ACT FAST Get medical care IMMEDIATELY if you suspect sepsis or if you have an infection that is not getting better or is getting worse. To learn more about sepsis and how to prevent infections, visit www.cdc.gov/sepsis. Test Results Laboratory or Other Results This Visit (last charted value for your 11/26/2019 visit) Hematology 11/30/2019 4:16 AM WBC: 5.6 K/uL -- Normal range between ( 3.9 and 10.0 ) RBC: 3.33 Million/uL -- Normal range between ( 3.93 and 5.22 ) Hct: 32.0 % -- Normal range between ( 34.1 and 44.9 ) Hgb: 10.4 Gram/dL -- Normal range between ( 11.2 and 15.7 ) Platelet Count: 163 K/uL -- Normal range between ( 163 and 369 ) MCH: 31.2 pg -- Normal range between ( 25.6 and 32.2 ) MCHC: 32.5 Gram/dL -- Normal range between ( 32.3 and 36.5 ) MCV: 96.1 fL -- Normal range between ( 79.0 and 94.8 ) Slide Review: No Eos %: 1.6 % -- Normal range between ( 1.0 and 7.0 ) [place] #: 0.35 K/uL -- Normal range between ( 0.24 and 0.82 ) Eos #: 0.09 K/uL -- Normal range between ( 0.04 and 0.54 ) [place] %: 6.2 % -- Normal range between ( 4.7 and 12.5 ) Baso %: 0.4 % -- Normal range between ( 0.0 and 1.0 ) Baso #: 0.02 K/uL -- Normal range between ( 0.01 and 0.08 ) RDW: 13.2 % -- Normal range between ( 11.6 and 14.4 ) Neut %: 69.3 % -- Normal range between ( 34.0 and 71.0 ) Neut #: 3.89 K/uL -- Normal range between ( 1.56 and 6.13 ) Lymph %: 22.1 % -- Normal range between ( 19.3 and 53.0 ) Lymph #: 1.24 K/uL -- Normal range between ( 1.18 and 3.74 ) MPV: 10.6 fL -- Normal range between ( 9.4 and 12.4 ) IG#: 0 x10(3)/uL IG%: 0 % -- Normal range between ( 0 and 1 ) Microbiology 11/27/2019 1:53 PM Wound Culture: See Result Blood Bank 11/27/2019 12:25 PM ABO/Rh: A POS Antibody Screen (Tube): Negative ABSC General Chemistry 11/30/2019 4:16 AM Creatinine Level: 0.65 mg/dL -- Normal range between ( 0.55 and 1.02 ) Sodium Level: 143 mmol/L -- Normal range between ( 136 and 146 ) Potassium Level: 4.2 mmol/L -- Normal range between ( 3.5 and 5.1 ) Chloride Level: 113 mmol/L -- Normal range between ( 102 and 112 ) Carbon Dioxide Level: 25 mmol/L -- Normal range between ( 21 and 32 ) Anion Gap: 9 -- Normal range between ( 9 and 20 ) Bun/Creatinine: 18.5 -- Normal range between ( 8.0 and 20.0 ) Calcium Level: 8.2 mg/dL -- Normal range between ( 8.5 and 10.1 ) eGFR : >60 mL/min/1.73m2 eGFR NonAfrican: >60 mL/min/1.73m2 Glucose Level: 86 mg/dL -- Normal range between ( 74 and 106 ) Blood Urea Nitrogen: 12 mg/dL -- Normal range between ( 7 and 22 ) 11/29/2019 5:12 AM Bilirubin Total: 0.2 mg/dL -- Normal range between ( 0.2 and 1.3 ) A/G Ratio: 1.0 -- Normal range between ( 1.1 and 2.5 ) ALT: 36 Units/Liter -- Normal range between ( 12 and 78 ) AST: 54 Units/Liter -- Normal range between ( 5 and 37 ) Globulin: 2.5 Gram/dL -- Normal range between ( 1.5 and 4.5 ) Alk Phos: 82 Units/Liter -- Normal range between ( 27 and 136 ) Protein Total: 4.9 Gram/dL -- Normal range between ( 6.4 and 8.2 ) Albumin Level: 2.4 Gram/dL -- Normal range between ( 3.4 and 5.0 ) Diagnostic Radiology 11/27/2019 4:30 PM CR Hip 1 Vw RT: CR Hip 1 Vw RT 11/27/2019 3:30 PM CR Fluoro in OR: CR Fluoro in OR Patient Name:SHANTELLE DIAZ I have received and understand this information and was given the opportunity to ask questions. Patient/Utility Maintenance Worker Name: Patient/Utility Maintenance Worker Signature: Relationship to Patient: Clinician/Hospital Utility Maintenance Worker Signature: Date: documented in this encounter Plan of Treatment Not on file documented as of this encounter Visit Diagnoses Not on filedocumented in this encounter
--- OUTSIDE RECORDS SUMMARY | 2025-06-19 10:14 | XMS_ITS | Encounter Summary ---
Author Organization [employer] ([place], [place], [place], [place], [place]) Address [address] [place] [id number] Care Team Providers Care Hazmat Tanker Driver Name Role Phone Unavailable Primary Care Provider Unavailabl e Encounter Details Date Type Department Care Team (Late st Contact Info) Description 11/29/2019 Transcribed Document [facility] [place] Family Medicine [address] [place] [address] ProviderMaribel MD [address] [place] [address] Social History Tobacco Use Types Packs/Day Years Used Date Smoking Tobacco: Never Assessed Comments Unknown Sex and Gender Information Value Date Recorded Sex Assigned at Not on file Legal Sex Female 4:40 PM CDT Gender Identity Not on file Sexual Orientation Not on file documented as of this encounter Miscellaneous Notes * Cerner Conversion Note - Historical ProviderMD - 11/29/2019 5:00 PM CDT Chart Check - Review Order Profile Entered On: 11/29/2019 16:28 EDT Performed On: 11/29/2019 16:28 EDT by Sissy Parker RN Chart Check Powerplans Initiated/Discontinued as Appropriate : Yes All Active Orders Reviewed : Yes Sissy Parker RN - 11/29/2019 16:28 EDT documented in this encounter Plan of Treatment Not on file documented as of this encounter Visit Diagnoses Not on filedocumented in this encounter
--- OUTSIDE RECORDS SUMMARY | 2025-06-19 10:14 | XMS_ITS | Encounter Summary ---
Author Organization [employer] ([place], [place], [place], [place], [place]) Address [address] [place] [id number] Care Team Providers Care Cardiac Exercise Physiologist Name Role Phone Unavailable Primary Care Provider Unavailabl e Encounter Details Date Type Department Care Team (Late st Contact Info) Description 11/30/2019 Transcribed Document [facility] [place] [facility] [place] [address] ProviderMaribel MD [place] [address] Social History Tobacco Use Types Packs/Day Years Used Date Smoking Tobacco: Never Assessed Comments Unknown Sex and Gender Information Value Date Recorded Sex Assigned at Not on file Legal Sex Female 4:40 PM CDT Gender Identity Not on file Sexual Orientation Not on file documented as of this encounter Miscellaneous Notes * Cerner Conversion Note - Maribel Batista MD - 11/30/2019 5:02 PM CDT Final Discharge Planning Entered On: 11/30/2019 17:03 EDT Performed On: 11/30/2019 17:02 EDT by JOHN HOLDEN RN-Real Estate Acquisition Analyst Final Discharge Planning Discharge Arrangements : Patient Post-Acute Information Patient Name: SHANTELLE HANNAH Gender: Female : 53 Age: 64 Years No Post-Acute Placement(s) Listed No Post-Acute Service(s) Listed No [place] Referral(s) Listed Patient Offered Choice/Affiliations Explained : No Transportation Needs : Family/Friend Follow Up Appointment Scheduled : Yes Is Patient High/Moderate Readmission Risk? : No Patient/Family Notified of Plan : Yes Discharge To Care Management : Home Health Services (Related/SOC within 3 days)-06 JOHN HOLDEN RN-Real Estate Acquisition Analyst - 11/30/2019 17:02 EDT documented in this encounter Plan of Treatment Not on file documented as of this encounter Visit Diagnoses Not on filedocumented in this encounter
--- OUTSIDE RECORDS SUMMARY | 2025-06-19 10:14 | XMS_ITS | Encounter Summary ---
Author Organization [employer] ([place], [place], [place], [place], [place]) Address [address] [place] [address] Care Team Providers Care County Adviser Name Role Phone Unavailable Primary Care Provider Unavailabl e Encounter Details Date Type Department Care Team (Late st Contact Info) Description 11/29/2019 Transcribed Document [facility] [place] [address] [place] [address] ProviderMaribel MD [address] [place] [address] Social History Tobacco Use Types Packs/Day Years Used Date Smoking Tobacco: Never Assessed Comments Unknown Sex and Gender Information Value Date Recorded Sex Assigned at Not on file Legal Sex Female 4:40 PM CDT Gender Identity Not on file Sexual Orientation Not on file documented as of this encounter Miscellaneous Notes * Cerner Conversion Note - Historical ProviderMD - 11/29/2019 5:00 AM CDT Chart Check - Review Order Profile Entered On: 11/29/2019 3:41 EDT Performed On: 11/29/2019 5:00 EDT by Elizabeth Be RN Chart Check Powerplans Initiated/Discontinued as Appropriate : Yes All Active Orders Reviewed : Yes Elizabeth Be RN - 11/29/2019 3:41 EDT documented in this encounter Plan of Treatment Not on file documented as of this encounter Visit Diagnoses Not on filedocumented in this encounter
--- OUTSIDE RECORDS SUMMARY | 2025-06-19 10:14 | XMS_ITS | Encounter Summary ---
Author Organization [employer] ([place], [place], [place], [place], [place]) Address [address] [place] [address] Care Team Providers Care Travel Money Advisor Name Role Phone Unavailable Primary Care Provider Unavailabl e Encounter Details Date Type Department Care Team (Late st Contact Info) Description 11/30/2019 Transcribed Document [facility] [place] [facility] [place] [address] ProviderMaribel MD [facility] [place] [address] Social History Tobacco Use Types Packs/Day Years Used Date Smoking Tobacco: Never Assessed Comments Unknown Sex and Gender Information Value Date Recorded Sex Assigned at Not on file Legal Sex Female 4:40 PM CDT Gender Identity Not on file Sexual Orientation Not on file documented as of this encounter Miscellaneous Notes * Cerner Conversion Note - Maribel Batista MD - 11/30/2019 4:21 PM CDT [place] [id number] DIONNE DIAZE ANTONIO :1955 Visit Time:11/26/2019 Your Visit Summary Your Care Team Admitting Physician - GIOVANNY MNOROE MD-INT Attending Physician - GIOVANNY MONROE MD-INT [...] do next Instructions From Your Care Team [facility] from [facility], Discharge Follow Up Instructions: Follow-up with Dr. Arora as scheduled, Order Comment: Follow-up with PCP as scheduled or PRN Activity: As perDr. Arora recommendations, Discharge Activity: Other (use Special Instructions) Diet: Discharge Diet: Resume usual diet as tolerated Follow-Up Appointments Follow Up with JULIO STEWART MD-ORT When 12/13/2019 09:45 AM EDT Where: [address] [facility] [address] [place] [address]- Medications What How Much When Instructions Next Dose acetaminophen-hydrocodone (Barton 7.5 mg-325 mg oral tablet) 1 Tablet(s) [...] Barley. Bulgur wheat. Millet. Bran muffins. Popcorn. [place] wafer crackers. Vegetables Sweet potatoes. Spinach. Kale. Artichokes. Cabbage. Broccoli. Green peas. Carrots. Squash. Fruits Berries. Pears. Apples. Oranges. Avocados. Prunes and raisins. Dried figs. Meats and Other Protein Sources [place], kidney, najera, and soy beans. Split peas. [...] ren has 11 g of protein. ??? [place] seeds ??? 1 oz has 5.5 g [...] floor. ??? Place frequently used items in mbbp-vx-tpcid places ??? Keep electrical cables out of [...] ??? Using the bathroom. ??? Using household dough raiser or toxic chemicals. ??? Touching or taking [...] aby and ovidio MARTINI done) Hycet, Lorcet, Barton, Verdrocet, Vicodin, Xodol, Zamicet What is the [...] may report side effects to FDA at 3-970-JLN-6006. What other drugs will affect acetaminophen and [...] affect acetaminophen and hydrocodone, including prescription and buqf-fob-pqbvipy medicines, vitamins, and herbal products. Not all [...] to ensure that the information provided by [employer]. ('Multum') is accurate, up-to-date, and complete, but no guarantee is made to that effect. Drug information contained herein may be time sensitive. [employer] information has been compiled for use by healthcare practitioners and consumers in the [place] and therefore [employer] does not warrant that uses outside of the [place] are appropriate, unless specifically indicated otherwise. [employer]'s drug information does not endorse drugs, diagnose patients or recommend therapy. [employer] drug information is an informational resource designed [...] effective or appropriate for any given patient. [employer] does not assume any responsibility for any aspect of healthcare administered with the aid of information [employer] provides. The information contained herein is not intended to cover all possible uses, directions, precautions, warnings, drug interactions, allergic reactions, or adverse effects. If you have questions about the drugs you are taking, check with your doctor, nurse or pharmacist. Copyright 0891-9886 [employer]. Version: 16.01. Revision Date: 08/31/2019. aspirin (oral) [...] What is aspirin? Aspirin is a salicylate (zo-MTS-lm-ate) that is used to treat pain, and [...] may report side effects to FDA at 3-560-WNX-9077. What other drugs will affect aspirin? Ask [...] drugs may affect aspirin, including prescription and oudq-dmc-fgpcein medicines, vitamins, and herbal products. Not all [...] to ensure that the information provided by [employer]. ('Vericepttum') is accurate, up-to-date, and complete, but no guarantee is made to that effect. Drug information contained herein may be time sensitive. [employer] information has been compiled for use by healthcare practitioners and consumers in the [place] and therefore [employer] does not warrant that uses outside of the [place] are appropriate, unless specifically indicated otherwise. [employer] drug information does not endorse drugs, diagnose patients or recommend therapy. [employer] drug information is an informational resource designed [...] effective or appropriate for any given patient. [employer] does not assume any responsibility for any aspect of healthcare administered with the aid of information [employer] provides. The information contained herein is not intended to cover all possible uses, directions, precautions, warnings, drug interactions, allergic reactions, or adverse effects. If you have questions about the drugs you are taking, check with your doctor, nurse or pharmacist. Copyright 5041-8408 [employer]. Version: 16.. Revision Date: 10/03/2019. Emergency Awareness [...] Assistance with quitting is available by contacting 7-730-TZOQ-NOW. This is a free resource providing counseling, [...] range between ( 1.0 and 7.0 ) Blaine #: 0.35 K/uL -- Normal range between ( 0.24 and 0.82 ) Eos #: 0.09 K/uL -- Normal range between ( 0.04 and 0.54 ) Blaine %: 6.2 % -- Normal range between [...] was given the opportunity to ask questions. Patient/Landscape Nurseryman Name: Patient/Landscape Nurseryman Signature: Relationship to Patient: Clinician/Hospital Landscape Nurseryman Signature: Date: documented in this encounter Plan of Treatment Not on file documented as of this encounter Visit Diagnoses Not on filedocumented in this encounter
--- OUTSIDE RECORDS SUMMARY | 2025-06-19 10:14 | XMS_ITS | Encounter Summary ---
Author Organization [employer] ([place], [place], [place], [place], [place]) Address [address] [place] [address] Care Team Providers Care Duplicating Machine Servicer Name Role Phone Unavailable Primary Care Provider Unavailabl e Encounter Details Date Type Department Care Team (Late st Contact Info) Description 11/30/2019 Transcribed Document [facility] [place] Medicine [facility] [place] [address] ProviderMaribel MD [address] [place] [address] Social History Tobacco Use Types Packs/Day Years Used Date Smoking Tobacco: Never Assessed Comments Unknown Sex and Gender Information Value Date Recorded Sex Assigned at Not on file Legal Sex Female 4:40 PM CDT Gender Identity Not on file Sexual Orientation Not on file documented as of this encounter Miscellaneous Notes * Cerner Conversion Note - Maribel Batista MD - 11/30/2019 6:50 PM CDT Nursing Discharge Summary Entered On: 11/30/2019 18:52 EDT Performed On: 11/30/2019 18:50 EDT by Yue Wayne RN Discharge Documentation Discharge Date/Time : 11/30/2019 18:31 EDT Transporter Signature : Yue Wayne RN Patient Disposition, General : Discharge Discharge To : Home with ambulatory/outpatient follow-up Mode Of Departure, General Discharge : Wheelchair Accompanied By, Discharge : Spouse IV Discontinued : Yes Personal Belongings With Patient : Yes Pt's Own Supply of Medications Returned : No patient supply of medications to return Prescriptions Given to Patient : Yes Medications Given to Patient : No Discharge Instructions Reviewed With, Opportunity For Questions Given : Patient Patient Education Completed : Yes Number of Prescriptions Given : 2 Teaching Method : Demonstration, Explanation, Teach back method Teaching Evaluation : Verbalizes understanding Yue Wayne RN - 11/30/2019 18:50 EDT documented in this encounter Plan of Treatment Not on file documented as of this encounter Visit Diagnoses Not on filedocumented in this encounter
--- OUTSIDE RECORDS SUMMARY | 2025-06-19 10:14 | XMS_ITS | Encounter Summary ---
Author Organization [employer] ([place], [place], [place], [place], [place]) Address [address] [place] [address] Care Team Providers Care Freight Associate Name Role Phone Unavailable Primary Care Provider Unavailabl e Encounter Details Date Type Department Care Team (Late st Contact Info) Description 11/29/2019 Transcribed Document [facility] [place] [facility] [place] [address] ProviderMaribel MD [address] [place] [address] Social History Tobacco Use Types Packs/Day Years Used Date Smoking Tobacco: Never Assessed Comments Unknown Sex and Gender Information Value Date Recorded Sex Assigned at Not on file Legal Sex Female 4:40 PM CDT Gender Identity Not on file Sexual Orientation Not on file documented as of this encounter Miscellaneous Notes * Cerner Conversion Note - Maribel Batista MD - 11/29/2019 5:25 PM CDT Patient: SHANTELLE DIZA Age: 64 years Sex: Female : 1955 Associated Diagnoses: Recurrent Right RTHA dislocation; Status post right total hip arthroplasty revision; H/O: TIA 12/2013; migraine; GERD - Gastro-esophageal reflux disease; PFO (patent foramen ovale) Author: GIOVANNY MONROE MD-INT Basic Information awake alert comfortable, asympt. , pain under control, no trouble w. urination. -Transferred from bed to chair Review of Systems Constitutional: No fever, No chills. Eye: No discharge, No blurring, No double vision, No visual disturbances. Ear/Nose/Mouth/Throat: No nasal congestion, No sore throat. Respiratory: No shortness of breath, No cough. Cardiovascular: No chest pain, No palpitations. Gastrointestinal: No nausea, No vomiting. Genitourinary: No change in urine stream. Musculoskeletal: Negative. Integumentary: wound stable covered w. clean dressing. Neurologic: Alert and oriented X4. Health Status Allergies: Allergies (1) Active Reaction [...] tract infection Physical Examination VS/Measurements Vital Measurements 11/29/2019 9:59 EDT Systolic Blood Pressure 115 mmHg Diastolic Blood Pressure 52 mmHg LOW Mean Arterial Pressure (MAP)-BMDI 66 Temperature Source Oral Temperature Mode Fahrenheit Temperature, Fahrenheit 98.5 Deg F Clinical Temperature, C 36.9 Deg C Heart Rate Monitored 96 bpm Respiratory Rate 16 Breaths/Min Oxygen Saturation 94 % General: Alert and oriented, No acute [...] Review / Management Results review: All Results 11/29/2019 5:12 EDT Sodium Level 144 mmol/L [...] % 23.7 % Lymph # 1.55 K/uL [place] % 5.7 % [place] # 0.37 K/uL Eos % 1.1 % Eos # 0.07 K/uL Baso % 0.2 % Baso # 0.01 K/uL Slide Review No IG# 0 x10(3)/uL IG% 0 % 11/28/2019 4:51 EDT Sodium Level 140 mmol/L Potassium Level 4.9 mmol/L Chloride Level 109 mmol/L Carbon Dioxide Level 26 mmol/L Anion Gap 10 Glucose Level 105 mg/dL Blood Urea Nitrogen 11 mg/dL Creatinine Level 0.77 mg/dL eGFR >60 mL/min/1.73m2 eGFR NonAfrican >60 mL/min/1.73m2 Bun/Creatinine 14.3 Calcium Level 8.1 mg/dL LOW WBC 9.3 K/uL RBC 3.75 Million/uL LOW Hgb 11.6 Gram/dL Hct 35.2 % MCV 93.9 fL MCH 30.9 pg MCHC 33.0 Gram/dL Platelet Count 168 K/uL MPV 10.6 fL RDW 12.8 % Neut % 86.0 % HI Neut # 7.99 K/uL HI Lymph % 7.8 % LOW Lymph # 0.73 K/uL LOW [place] % 5.8 % [place] # 0.54 K/uL Eos % 0.0 % LOW Eos # 0.00 K/uL LOW Baso % 0.1 % Baso # 0.01 K/uL Slide Review No IG# 0 x10(3)/uL IG% 0 % . Condition: Stable. Impression and Plan Diagnosis Recurrent Right RTHA dislocation - Admitting, Medical. Status post right total hip arthroplasty revision - Working, Medical. H/O: TIA 12/2013 - Admitting, Medical. Migraine - Admitting, Medical. GERD - Gastro-esophageal reflux disease - Admitting, Medical. PFO (patent foramen ovale) - Admitting, Medical. Course: Plan/ cont. current care, pt/ot, encourage oral fluid intake, nutritional support, encourage use of respirometer, motoring blood pressure, renal function, blood glucose, and urine output. pain control DVT prophylaxis .Fall risk precautions .Stress ulcer prophylaxis .May need to go to rehabfor her safety.. documented in this encounter Plan of Treatment Not on file documented as of this encounter Visit Diagnoses Not on filedocumented in this encounter
--- OUTSIDE RECORDS SUMMARY | 2025-06-19 10:14 | XMS_ITS | Encounter Summary ---
Author Organization [employer] ([place], [place], [place], [place], [place]) Address [address] [place] [address] Care Team Providers Care Loss Prevention Leader Name Role Phone Unavailable Primary Care Provider Unavailabl e Encounter Details Date Type Department Care Team (Late st Contact Info) Description 11/29/2019 Transcribed Document [facility] [place] [facility] [place] [address] ProviderMaribel MD [facility] [place] [address] Social History Tobacco Use Types Packs/Day Years Used Date Smoking Tobacco: Never Assessed Comments Unknown Sex and Gender Information Value Date Recorded Sex Assigned at Not on file Legal Sex Female 4:40 PM CDT Gender Identity Not on file Sexual Orientation Not on file documented as of this encounter Miscellaneous Notes * Cerner Conversion Note - Maribel Batista MD - 11/29/2019 9:07 AM CDT Patient: SHANTELLE DIAZ Age: 64 Years Sex: Female : 1955 Subjective Patient seen and examined. No acute events overnight. BP stable Intake & Output Intake & Output Totals Last 24 Hours (7a-7a) Intake (12 Events) Medications (1800 mL) Oral Intake (1080 mL) Output (2 Events) Fontana Catheter (1000 mL) Urine Voided (Volume) (700 mL) Input Total: 2880 mL Output Total: 1700 mL Balance: 1180 mL Vital Signs T: 36.6 ??C TMIN: 36.3 ??C TMAX: 37.3 ??C HR: 89(Monitored) RR: 16 BP: 114/54 SpO2: 94% Physical Exam RLE: Dressing c/d/i SILT SP/DP/T Motor I EHL/FHL/TA/GS All comp s/c CRF< 2 sec DP 2 + VTE Risk Total Score VTE Prophylaxis - Surgical Aspirin 81 mg, Oral, EC Tab, BID, Routine, Start 11/29/19 9:00:00 EDT (JULIO STEWART MD-ORT) Sequential Compression Device Start: 11/27/19 16:02:00 EDT, Bilateral, Length: Knee High, non operative leg only, Continuous Order (JULIO STEWART MD-ORT) Sequential Compression Device Start: 11/26/19 21:24:00 EDT, Bilateral, Length: Knee High, While patient is in bed, Continuous Order (GIOVANNY MONROE) Assessment/Plan POD #2 s/p revision R ARLYN acetabular component. -TTWB RLE, hip abduction brace when OOB -Pain control -DVT ppx -PT/OT -OOB -Likely Dispo rehab -? covid testing to enable d/c to rehab -2 weeks of oral abx post op due to revision surgery GERD - Gastro-esophageal reflux disease K21.9 H/O: TIA 12/2013 Z86.73 migraine Z86.69 PFO (patent foramen ovale) Q21.1 Recurrent Right RTHA dislocation S73.004A Status post right total hip arthroplasty revision Z96.641 Orders: doxycycline, 100 mg, Oral, Cap, BID, order duration: 14 Day(s), Routine, Start 11/28/19 12:04:00 EDT, Stop 12/11/19 21:00:00 EDT, Indication: Surgical Prophylaxis Consult to Home Health Culture AFB and Stain Culture AFB and Stain Culture AFB and Stain Medications Inpatient acetaminophen-HYDROcodone 325 mg-5 mg oral tablet, 1 Tab, Oral, Q4H, PRN acetaminophen-HYDROcodone 325 mg-5 mg oral tablet, 2 Tab, Oral, Q4H, PRN aspirin, 81 mg= 1 Tab, Oral, BID calcium gluconate calcium gluconate + Sodium Chloride 0.9% intravenous solution 100 mL calcium gluconate + Sodium Chloride 0.9% intravenous solution 100 mL cloNIDine, 0.1 mg= 1 Tab, Oral, Q4H, PRN Colace, 100 mg= 1 Cap, Oral, BID doxycycline, 100 mg= 1 Cap, Oral, BID Dulcolax Laxative, 10 mg= 1 Supp, Rectal, BID, PRN HYDROmorphone, 0.5 mg= 0.5 mL, IV Push, Q10Min, PRN magnesium sulfate, 2 Gram= 50 mL, [...] Cap, Oral, At Bedtime, PRN Sodium Chloride 0.9% intravenous solution 1,000 mL, 1000 mL, IntraVENous sodium phosphate sodium phosphate Sublimaze, 25 mcg= 0.5 mL, IV Push, Q5Min, PRN Sublimaze, 50 mcg= 1 mL, IV Push, Q5Min, PRN tranexamic acid tranexamic acid Transderm-Scop 1.5 mg transdermal film, extended release, 1 Patch, TransDermal, Q3Days, PRN traZODone, 50 mg= 1 Tab, Oral, At Bedtime, PRN Tylenol, 650 mg= 2 Tab, Oral, Q4H, PRN Xanax, 0.25 mg= 1 Tab, Oral, Q6H, PRN Zofran, 4 mg= 2 mL, IV Push, Q4H, PRN Home aspirin 81 mg oral tablet, 81 mg= 1 Tab, Oral, BID Labs Results NOV 27 04:51 140 109 11 / 105 4.9 26 0.77 \ NOV 28 05:12 \ L 10.5 / 6.5 165 / L 32.2 \ Albumin Level: 2.4 Gram/dL Low Alk Phos: 82 Units/Liter ALT: 36 Units/Liter Anion Gap: 11 AST: 54 Units/Liter High Bilirubin Total: 0.2 mg/dL Calcium Level: 7.9 mg/dL Low Protein Total: 4.9 Gram/dL Low Imaging Results (Last 24 Hours) Radiology Results (Last 48 hours) [id number] -- 11/26/2019 19:38 CR Fluoro in OR (11/27/2019 15:30) Result: FLUORO TIMEImpression:Fluoroscopic guidance was provided for clinical service without aradiologist in attendance.1.4 minutes of fluoroscopy time were used.Number spot images 1 Images reviewed, interpreted, and dictated by Karlos Martin MD. CR Hip 1 Vw RT (11/27/2019 16:30) Result: POSTOP RIGHT HIP ONE VIEWINDICATION: Postop.FINDINGS: Patient is status post arthroplasty. There is no surgicaldrain in place. There is anatomic alignment.IMPRESSION: As above.Images reviewed, interpreted, and dictated by Karlos Martin MD Problem List/Past Medical History Ongoing Confusion GERD [...] foot surgery, right hip replacement, tubal ligation. Allergies No Known Allergies Electronically signed by Genoveva James Conversion Unit Manager [employer] Cerner at 11/22/2022 8:55 PM CDT documented in this encounter Plan of Treatment Not on file documented as of this encounter Visit Diagnoses Not on filedocumented in this encounter
--- OUTSIDE RECORDS SUMMARY | 2025-06-19 10:14 | XMS_ITS | Encounter Summary ---
Author Organization [employer] ([place], [place], [place], [place], [place]) Address [address] [place] [address] Care Team Providers Care Weight Loss Consultant Name Role Phone Unavailable Primary Care Provider Unavailabl e Encounter Details Date Type Department Care Team (Late st Contact Info) Description 11/30/2019 Transcribed Document [facility] [place] [facility] [place] [address] ProviderMaribel MD [facility] [place] [address] Social History Tobacco Use Types Packs/Day Years Used Date Smoking Tobacco: Never Assessed Comments Unknown Sex and Gender Information Value Date Recorded Sex Assigned at Not on file Legal Sex Female 4:40 PM CDT Gender Identity Not on file Sexual Orientation Not on file documented as of this encounter Miscellaneous Notes * Cerner Conversion Note - Maribel ProviderMD - 11/30/2019 4:00 PM CDT Discharge Summary, PT Entered On: 12/02/2019 9:06 EDT Performed On: 11/30/2019 16:00 EDT by EMETERIO CARVER, PT Discharge Summary Reason for Discharge : Discharged from hospital Discharged to, Therapy : Home, with home health Discharge Summary Comment, PT : 2/4 acute PT goals met. SBA supine to sit Min A sit to stand Ambulated 80' with RWx CGA TTWB on RLE + hip spica brace Therex: ankle pumps, quad set, glute set D/C home with family + home health services on 11/30/19. EMETERIO CARVER, PT - 12/02/2019 9:04 EDT Catalogue Librarian Goals Other PT LTG Grid Goal #1 Goal #2 Goal #3 Goal #4 Other : Pt to be IND with Therex per HEP for BLE within restrictions Pt to be Min A for sup to sit to decrease caregiver burden Pt to amb 15' with Rwx, ABD brace, TTWB RLE for transfers to chair Pt will ambulate 100ft with TTWB and RWx for safety with household distances. Date to Meet : 12/12/2019 EDT 12/12/2019 EDT 12/12/2019 EDT 12/12/2019 EDT Goal Status : Not met Goal met Goal met Not met EMETERIO CARVER, PT - 12/02/2019 9:04 EDT EMETERIO CARVER, PT - 12/02/2019 9:04 EDT EMETERIO CARVER, PT - 12/02/2019 9:04 EDT EMETERIO CARVER, PT - 12/02/2019 9:04 EDT documented in this encounter Plan of Treatment Not on file documented as of this encounter Visit Diagnoses Not on filedocumented in this encounter
--- OUTSIDE RECORDS SUMMARY | 2025-06-19 10:14 | XMS_ITS | Encounter Summary ---
Author Organization [employer] ([place], [place], [place], [place], [place]) Address [address] [place] [address] Care Team Providers Care Help Desk Support Specialist Name Role Phone Unavailable Primary Care Provider Unavailabl e Encounter Details Date Type Department Care Team (Late st Contact Info) Description 11/30/2019 Transcribed Document [facility] [place] [address] [place] [address] ProviderMaribel MD [address] [place] [address] Social History Tobacco Use Types Packs/Day Years Used Date Smoking Tobacco: Never Assessed Comments Unknown Sex and Gender Information Value Date Recorded Sex Assigned at Not on file Legal Sex Female 4:40 PM CDT Gender Identity Not on file Sexual Orientation Not on file documented as of this encounter Miscellaneous Notes * Cerner Conversion Note - Maribel Batista MD - 11/30/2019 3:43 PM CDT Patient Education Materials Follows: What to expect after the Procedure: After the procedure, it is common to have: ?? Pain and swelling. ?? A small amount of blood or clear fluid coming from your incision for up to 7 days ?? It is normal to have a moderate amount of bleeding from the site of the drain that was pulled on the morning after surgery. You can hold pressure on the area for 3-5 minutes and cover with a bandage as needed. Diet: ?? Resume usual diet ?? No alcoholic beverages while taking pain medication ?? Drink 8-10 glasses of water a day to prevent constipation from pain medication ?? Increase fiber to help prevent constipation. Straining can cause increased pressure and pain in your incision area ?? Increase protein to promote healing Driving: ?? Do not drive until your health care provider approves. Ask your health care provider when it is safe to drive if you have an immobilizer on your knee. ?? Do not drive or operate heavy machinery while taking prescription pain medicine. ?? Do not drive for 24 hours if you received a sedative. Activity: ?? Do not lift anything that is heavier than 10 lb (4.5 kg) until your health care provider approves. ?? No strenuous activity ?? Avoid high-impact activities, including running, jumping rope, and jumping jacks. ?? Avoid sitting for a long time without moving. Get up and move around at least every few hours. ?? Keep legs elevated while seated and place surgery leg on 2-3 pillows, this will decrease swelling ?? Continue using walker until cleared by physical therapy Bathing: ?? Do not take baths, swim, or use a hot tub for one month after surgery. ?? May shower on the third day after surgery by covering incision with Glad Brand Press and Seal saran wrap. After showering, dry off completely BEFORE removing saran wrap. ?? Use Press and Seal saran wrap to shower for one month after surgery ?? You must be seated to shower until you are no longer using the walker Other: ?? Use ice therapy for 20-30 minutes at a time and leave off for 20-30 minutes at a time. Always keep a towel or cloth between the ice pack and your skin ?? Continue to use Incentive Spirometer 10 times an hour while awake for one month to help prevent pneumonia Contact a health care provider if: ?? You have more redness, swelling, or pain around your incision. ?? You have more fluid or blood coming from your incision. ?? Your incision or drain site feels warm to the touch. ?? You have pus or a bad smell coming from your incision. ?? You have a fever. ?? Your incision breaks open after your health care provider removes your sutures, skin glue, or adhesive tape. ?? Your prosthesis feels loose. ?? You have knee pain that does not go away. DVT: Blood Clot Blood clots are a common risk after an orthopedic surgery Symptoms: ?? Swelling of your leg or arm, especially if one side is much worse. ?? Warmth and redness of your leg or arm, especially if one side is much worse. ?? Pain in your arm or leg. If the clot is in your leg, symptoms may be more noticeable or worse when you stand or walk. ?? A feeling of pins and needles, if the clot is in the arm. The symptoms of a DVT that has traveled to the lungs (pulmonary embolism, PE) usually start suddenly and include: ?? Shortness of breath while active or at rest. ?? Coughing or coughing up blood or blood-tinged mucus. ?? Chest pain that is often worse with deep breaths. ?? Rapid or irregular heartbeat. ?? Feeling light-headed or dizzy. ?? Fainting. ?? Feeling anxious. ?? Sweating. There may also be pain and swelling in a leg if that is where the blood clot started. How is this prevented? ?? Exercise regularly. For at least 30 minutes every day, engage in: -Activity that involves moving your arms and legs. -Activity that encourages good blood flow through your body by increasing your heart rate. ?? Exercise your arms and legs every hour during long-distance travel (over 4 hours). ?? Drink plenty of water and avoid drinking alcohol while traveling. ?? Avoid sitting or lying in bed for long periods of time without moving your legs. ?? Maintain a weight that is appropriate for your height. Ask your health care provider what weight is healthy for you. ?? If you are a woman who is over 35 years of age, avoid unnecessary use of medicines that contain estrogen. These include control pills. ?? Do not smoke, especially if you take estrogen medicines. If you need help quitting, ask your health care provider. ?? Wear compression stockings (if told by your health care provider) to help prevent blood clots from forming. High Fiber/High Protein Diet High fiber foods: To prevent constipation Grains Whole-grain breads. Multigrain cereal. Oats and oatmeal. Brown rice. Barley. Bulgur wheat. Millet. Bran muffins. Popcorn. Marsteller wafer crackers. Vegetables Sweet potatoes. Spinach. Kale. Artichokes. Cabbage. Broccoli. Green peas. Carrots. Squash. Fruits Berries. Pears. Apples. Oranges. Avocados. Prunes and raisins. Dried figs. Meats and Other Protein Sources [place], kidney, najera, and soy beans. Split peas. Lentils. Nuts and seeds. Dairy Fiber-fortified yogurt. Beverages Fiber-fortified soy milk. Fiber-fortified orange juice. Other Fiber bars. High-protein foods: To promote healing High-protein foods contain 4 grams (4 g) or more of protein per serving. They include: ?? Beef, ground sirloin (cooked) ??? 3 oz have 24 g of protein. ?? Cheese (hard) ??? 1 oz has 7 g of protein. ?? Chicken breast, boneless and skinless (cooked) ??? 3 oz have 13.4 g of protein. ?? Cottage cheese ??? 1/2 cup has 13.4 g of protein. ?? Egg ??? 1 egg has 6 g of protein. ?? Fish, filet (cooked) ??? 1 oz has 6???7 g of protein. ?? Garbanzo beans (canned or cooked) ??? 1/2 cup has 6???7 g of protein. ?? Kidney beans (canned or cooked) ??? 1/2 cup has 6???7 g of protein. ?? [place] (cooked) ??? 3 oz has 24 g of protein. ?? Milk ??? 1 cup (8 oz) has 8 g of protein. ?? Nuts (peanuts, pistachios, almonds) ??? 1 oz has 6 g of protein. ?? Peanut butter ??? 1 oz has 7???8 g of protein. ?? Pork tenderloin (cooked) ??? 3 oz has 18.4 g of protein. ?? Pumpkin seeds ??? 1 oz has 8.5 g of protein. ?? Soybeans (roasted) ??? 1 oz has 8 g of protein. ?? Soybeans (cooked) ??? 1/2 cup has 11 g of protein. ?? Soy milk ??? 1 cup (8 oz) has 5???10 g of protein. ?? Soy or vegetable ren ??? 1 ren has 11 g of protein. ?? Bollinger seeds ??? 1 oz has 5.5 g of protein. ?? Tofu (firm) ??? 1/2 cup has 20 g of protein. ?? Tuna (canned in water) ??? 3 oz has 20 g of protein. ?? Yogurt ??? 6 oz has 8 g of protein. Fall Prevention ?? Use night lights. ?? Install grab bars by the toilet and in the tub and shower. Do not use towel bars as grab bars. ?? Use non-skid mats or decals on the floor of the tub or shower. ?? If you need to sit down while you are in the shower, use a plastic, non-slip stool. ?? Keep the floor dry. Immediately clean up any water that spills on the floor. ?? Remove soap buildup in the tub or shower on a regular basis. ?? Remove throw rugs and other tripping hazards from the floor. ?? Place frequently used items in lbfh-ft-imnpt places ?? Keep electrical cables out of the way. ?? Do not leave any items on the stairs. ?? Make sure that there are handrails on both sides of the stairs. Fix handrails that are broken or loose. Make sure that handrails are as long as the stairways. ?? Check any carpeting to make sure that it is firmly attached to the stairs. Fix any carpet that is loose or worn. ?? Avoid having throw rugs at the top or bottom of stairways, or secure the rugs with carpet tape to prevent them from moving. ?? Wear closed-toe shoes that fit well and support your feet. Wear shoes that have rubber soles or low heels. ?? Use mobility aids as needed, such as canes, walkers, scooters, and crutches. ?? Turn on lights if it is dark. Replace any light bulbs that burn out. ?? Set up furniture so that there are clear paths. Keep the furniture in the same spot. ?? Be aware of any and all pets. ?? Review your medicines with your healthcare provider. Some medicines can cause dizziness or changes in blood pressure, which increase your risk of falling. Hand Washing You should wash your hands whenever you think they are dirty. You should also wash your hands: ??? After: ?? Working or playing outside. ?? Touching an animal or its toys or leash. ?? Handling livestock. ?? Using the bathroom. ?? Using household support group manager or toxic chemicals. ?? Touching or taking out the garbage. ?? Touching anything dirty around your home. ?? Handling soiled clothes or rags. ?? Taking care of a sick child. This includes touching used tissues, toys, and clothes. ?? Sneezing, coughing, or blowing your nose. ?? Using public transportation. ?? Shaking hands. ?? Using a phone, including your mobile phone. ?? Touching money. ??? Before and after: ?? Preparing food. ?? Feeding a baby or young child. ?? Eating. ?? Visiting or taking care of someone who is sick. ?? Changing a diaper. ?? Changing a bandage (dressing) or taking care of an injury or wound. ?? Giving or taking medicine. If soap and [...] 4. Repeat the process for each step. ?? Always keep both feet within the width of the walker's legs or wheels. ?? When using your walker, you should not feel like you need to lean forward or to the side to keep your hands on the handgrips. ?? Make sure you are following any weight-bearing instructions that your health care provider has given you. ?? Be careful not to let the walker get too far ahead of you as you walk. ?? If your walker does not glide well [...] 81mg twice a day for 45 days. documented in this encounter Plan of Treatment Not on file documented as of this encounter Visit Diagnoses Not on filedocumented in this encounter
--- OUTSIDE RECORDS SUMMARY | 2025-06-19 10:14 | XMS_ITS | Encounter Summary ---
Author Organization [employer] ([place], [place], [place], [place], [place]) Address [address] [place] [address] Care Team Providers Care Licensed Physical Therapist Name Role Phone Unavailable Primary Care Provider Unavailabl e Encounter Details Date Type Department Care Team (Late st Contact Info) Description 11/26/2019 Transcribed Document [facility] [place] [facility] [place] [address] ProviderMaribel MD [facility] [place] [address] Social History Tobacco Use Types Packs/Day Years Used Date Smoking Tobacco: Never Assessed Comments Unknown Sex and Gender Information Value Date Recorded Sex Assigned at Not on file Legal Sex Female 4:40 PM CDT Gender Identity Not on file Sexual Orientation Not on file documented as of this encounter Miscellaneous Notes * Cerner Conversion Note - Maribel ProviderMD - 11/26/2019 7:37 PM CDT Admission History, Adult Entered On: 11/26/2019 20:33 EDT Performed On: 11/26/2019 19:37 EDT by Lynne Costello RN Advance Directive Patient has Advance Directive *Q : No, patient refuses Advance Directive information Lynne Costello RN - 11/26/2019 20:26 EDT Anesthesia/Transfusion History Family History of Anesthesia Reaction : No prior transfusion(s) Transfusion History : Prior anesthesia without reaction Family History of Anesthesia Reaction : None Lynne Costello RN - 11/26/2019 20:26 EDT Functional Assessment Living Situation : Home Patient Lives With : Spouse Current Home Treatments : None Lynne Costello RN - 11/26/2019 20:26 EDT General Info Preferred Name : Shantelle Support Person/Patient Superintendent Sanitation : No Support Person/Pt Rep Name : Vick spouse. Contact Password : twin Want Family/Rep/Phys Notified of Admit : No Emergency Contact #1 : Vick Diaz Emergency Contact #1 Emergency Contact #1 Relationship : spouse Emergency Contact #2 : na Emergency Contact #2 Phone Number : na Emergency Contact #2 Relationship : na Primary Language : Turkish Preferred Communication Mode : Verbal Communication Barrier : None Lynne Costello RN - 11/26/2019 20:26 EDT Fall Risk Scales ABCs Fall Injury Risk Identification : Bones ABC Fall Injury Risk : Moderate to high injury risk Injury Moderate to High Risk Interventions : Bed alarm on, High Risk for Fall Injury sign in place per policy, Supervise toileting as indicated, Toileting schedule, Transport methods appropriate to patient, Wrist band (fall risk) on per policy TERRELL Hx Falls Immediate/Within 3 Months : Yes Terrell Secondary Diagnosis : No TERRELL Use of Ambulatory Aid : Bed rest/Nurse assist TERRELL IV Therapy or IV Access : Yes Terrell Gait/Transferring : Normal, bedrest, immobile Terrell Mental Status : Oriented to own ability Terrell Fall Risk Score : 45 TERRELL Fall Scale Risk Level : 25-45 Medium Risk [place] Fall Interventions : Adequate lighting, Assistive devices within reach, Bed in low position, Call device within reach, Fall prevention handout/education per facility policy, Frequent orientation to call device, Frequent orientation to surroundings, Hourly comfort/safety rounds, Non-slip footwear, Personal items within reach, Reinforced to call for assistance before getting out of bed, Room free of clutter/spills, Upper side-rails up, Wheels locked, Wires/Cords secured Fall Risk Scale Calc Temp : 1 Lynne Costello RN - 11/26/2019 20:26 EDT Health Histories Smoking Status : Never (less than 100 in lifetime; none in last 30 days) Smokeless Tobacco Status : Never Lynne Costello RN - 11/26/2019 20:26 EDT Social History (As Of: 11/26/2019 20:33:25 EDT) Tobacco: Smoking Status Never smoker. (Last Updated: 01/27/2014 07:23:40 EDT by NICHOL FLORES, RN) Alcohol: Use in Last 12 Months: No. (Last Updated: 01/27/2014 07:23:45 EDT by NICHOL FLORES, RN) Substance Abuse: Drug Use Hx: No. (Last Updated: 01/27/2014 07:23:49 EDT by NICHOL FLORES RN) Nutrition/Health: Caffeine intake amount: 2 cups per day. (Last Updated: 06/03/2017 13:38:51 EDT by Yuni Morris, CHOLO) Home/Environment: Lives with Spouse. (Last Updated: 06/03/2017 13:38:59 EDT by Yuni Morris, RN) Employment/School: Retired (Last Updated: 06/03/2017 13:39:05 EDT by Yuni Morris, RN) Height and Weight, Clinical Dosing Height Source : Stated Height Entry Format : [place] Height, Feet : 5 ft(Converted to: 152 cm, 60 Inch) Height, Inches : 8 Inch(Converted to: 0 ft 8 Inch, 20.32 cm) Clinical Height : 172.72 cm Weight Source : Standing scale Weight Entry Format : [place] Clinical Dosing Weight : 81.82 kg Weight, Pounds : 180 lb Body Surface Area (BSA) : 1.96 m2 Body Mass Index : 27.4 kg/m2 (HI) [place] Body Weight : 63 kg Lynne Costello RN - 11/26/2019 20:26 EDT Infectious Disease History COVID19 Screening : No Experiencing Infectious Disease Symptoms : No symptoms Physical contact outside [place] in the last 30 days : No Infectious Disease History : Chicken pox/Shingles, Measles, Mumps, Pertussis (Whooping cough) Tuberculosis Symptoms : None Lynne Costlelo RN - 11/26/2019 20:26 EDT Influenza Vaccine Asmt, Adult Previous Vaccines from Immunization Schedule : No qualifying data available. Influenza Immunization, Current Season : Yes Lynne Costello RN - 11/26/2019 20:26 EDT Pneumococcal Vaccine Previous Vaccines from Immunization Schedule : No qualifying data available. Pneumonia Immunization Received : No Pneumococcal Risk Assessment < Age 65 : N/A- Patient 65 years of age or older Pneumococcal Vaccine Contraindications : No contraindications to pneumococcal vaccine Transplant Workup/Recent Transplant : No Order for Pneumococcal Vaccine : Declined Vaccination Lynne Costello RN - 11/26/2019 20:26 EDT Nutrition History Eating Poorly Due to Decreased Appetite : No Unplanned Weight Loss in Past 3-6 Months : No Malnutrition Screening Tool Total(mal) : 0 Malnutrition Screening Tool Risk Level : Patient not at risk Lynne Costello RN - 11/26/2019 20:26 EDT [place] Suicide Severity Rating Scale (C-SSRS) CSSRS Past Month Wish to be : No CSSRS Past Month Suicidal Thoughts : No CSSRS Lifetime Suicide Behavior : No Suicide Severity Rating Score : 0 Suicide Severity Rating : No Additional Care Required at this time Lynne Costello RN - 11/26/2019 20:26 EDT Psychosocial History Chronic/Terminal Illness w/Freq Visits : No Do You Have a History of the Following? : Patient denies history Currently in Unsafe Situation : No Lynne Costello RN - 11/26/2019 20:26 EDT Sleep Apnea Risk Assmt Hx of Obstructive Sleep Apnea Diagnosis : No Snore Loudly : No Tired, Fatigued, or Sleepy During Day : No Observed Stopping Breathing During Sleep : No Have/Are Being Treated for Hypertension : No BMI Greater Than 35 kg/m2 : No Age over 50 Years Old : Yes Neck Circumference Greater Than 40 cm : No Gender Male : No STOP-BANG Sleep Apnea Risk Level Score : 1 Lynne Costello RN - 11/26/2019 20:26 EDT Valuables and Belongings Valuables and Belongings : Clothing, Jewelry, Personal devices Clothing : Common streetwear Clothing Disposition : With patient Personal Device Disposition : With patient Jewelry : Earrings, Ring, Watch Jewelry Disposition : With patient Personal Devices : Dentures, upper, Glasses Lynne Costello RN - 11/26/2019 20:26 EDT Electronically signed by Genoveva James Conversion Manufacturing Engineering Director Cerner at 11/22/2022 8:57 PM CDT documented in this encounter Plan of Treatment Not on file documented as of this encounter Visit Diagnoses Not on filedocumented in this encounter
--- OUTSIDE RECORDS SUMMARY | 2025-06-19 10:14 | XMS_ITS | Encounter Summary ---
Author Organization [employer] ([place], [place], [place], [place], [place]) Address [address] [place] [address] Care Team Providers Care Mold Cooler Name Role Phone Unavailable Primary Care Provider Unavailabl e Encounter Details Date Type Department Care Team (Late st Contact Info) Description 11/29/2019 Transcribed Document [facility] [place] [facility] [place] [address] ProviderMaribel MD [facility] [place] [address] Social History Tobacco Use Types [...] Batista MD - 11/29/2019 9:07 AM CDT On Going Discharge Planning Entered On: 11/29/2019 9:13 EDT Performed On: 11/29/2019 9:07 EDT by Rowan Hudson RN-DROP PIT WORKERoyster worker Progress Note Discharge Arrangements : Patient Post-Acute Information Patient Name: SHANTELLE DIAZ Gender: Female : 53 Age: 64 Years No Post-Acute Placement(s) Listed No Post-Acute Service(s) Listed No [place] Referral(s) Listed Rowan Hudson RN-DROP PIT WORKER - 11/29/2019 14:16 EDT Discharge Options Discussed with Patient : Discharge transportation, DME, Outpatient services, Short term rehabilitation Barriers to Discharge Identified : Clinical Condition of Patient, Follow-Up appointments needed Barriers to Discharge Unresolved : Clinical Condition of Patient Designation of Choice Signed : No Patient Offered Choice/Affiliations Explained : No Were Referrals Sent to Post Acute Providers : No Is the Patient Meeting Medical Necessity : Yes Physician Agreeable to Move Forward with D/C Plan? : No Did you Attend Multidisciplinary Rounds? : No Rowan Hudson RN-DROP PIT WORKER - 11/29/2019 9:07 EDT Narrative Progress Note Narrative Progress Note : No MDR with this provider this AM. CM spoke with John at [facility] who states they have no beds (patient's sister is a nurse here), but sent to their liasion (also [facility] for [facility]). CM spoke with Castillo at [facility] who states they have no [...] CM received call from [facility] for [facility] who states patient will need COVID19 testing, but they may have a bed for her at [facility]. CM will discuss with patient, as patient previously indicated she was only interested in two facilities and will follow up with liasion. CM spoke with patient who indicates she has decided to discharge home with , rather than to a SNF for rehab. Resumption orders sent to [facility]. CM will continue to follow. Historical Progress Note : Spoke to patient in room, would like short term rehab, but only at [facility] or [facility]. Family was told there are no rooms available, however, will send referrals through [facility]. Patient does not want [facility] due being long distance from her home. Patient states if she cannot go to [facility] at either one of her chosen facilities, then she will dc to home with [facility]. Already has RW at home for use..........JOHN Chanel RN-Data Management Consultant - 11/28/19 14:27:17 Rowan Hudson RN-DROP PIT WORKER - 11/29/2019 14:16 EDT Electronically signed by Jacob [facility] Conversion Programming Instructor Earlenener at 11/22/2022 8:53 PM CDT documented in this encounter Plan of Treatment Not on file documented as of this encounter Visit Diagnoses Not on filedocumented in this encounter
--- OUTSIDE RECORDS SUMMARY | 2025-06-19 10:14 | XMS_ITS | Encounter Summary ---
Author Organization [employer] ([place], [place], [place], [place], [place]) Address [address] [place] [address] Care Team Providers Care Fitter Hand Name Role Phone Unavailable Primary Care Provider Unavailabl e Encounter Details Date Type Department Care Team (Late st Contact Info) Description 11/27/2019 Transcribed Document [facility] [place] [address] ProviderMaribel MD [address] [place] [address] Social History Tobacco Use Types Packs/Day Years Used Date Smoking Tobacco: Never Assessed Comments Unknown Sex and Gender Information Value Date Recorded Sex Assigned at Not on file Legal Sex Female 4:40 PM CDT Gender Identity Not on file Sexual Orientation Not on file documented as of this encounter Miscellaneous Notes * Cerner Conversion Note - Maribel Batista MD - 11/27/2019 5:03 PM CDT Patient: SHANTELLE DIAZ Age: 64 years Sex: Female : 1955 Associated Diagnoses: Recurrent Right RTHA dislocation; H/O: TIA 12/2013; migraine; GERD - Gastro-esophageal reflux disease; PFO (patent foramen ovale) Author: GIOVANNY PERLA MD-INT Date of Admission : 11/26/2019 Orthopedic Surgeon : Shahbaz Hunter MD Admitting Physician : [facility] Medicine : Giovanny Perla MD Admitting Diagnosis : 1- Recurrent RTHA dislocation 2-RTHA in the 80's & revision on 08/12/2017 & 2018 3-Patent Foramen Ovale 4-GERD 5- h/o TIA 6-DJD History of present illness 64 y o w F , with a h/o TIA , Patent foramen ovale , GERD, DJD etc who underwent RTHA back in the 80's then a Revision in 08/12/2017 & another revision in 10/08/2018 who was referred from local hospital ED after a failed reduction of another Rt hip dislocation.Pt was then transferred to [facility] for high level of care. Pt stated the she was doing well till she got up for the chair then she felt something popped out in her Rt hip , then she fell on the floor.She denies any head trauma , loss of conciousness.,headache , dizziness, syncopal or presyncopal symptoms. Review of Systems Constitutional: No fever, No chills. Eye: No visual disturbances. Ear/Nose/Mouth/Throat: No nasal congestion, No sore throat. Respiratory: No shortness of breath, No cough. Cardiovascular: No chest pain, No tachycardia. Gastrointestinal: No nausea, No vomiting, No abdominal pain. Genitourinary: No change in urine stream. Hematology/Lymphatics: No bleeding tendency. Endocrine: No polyuria, No cold intolerance, No heat intolerance. Immunologic: Negative. Musculoskeletal: Rt hip pain & swelling. Integumentary: Negative. Neurologic: No confusion, No numbness, No tingling, No headache. Psychiatric: No anxiety, No depression. All other systems are negative Health Status Allergies: Allergies (1) Active Reaction No Known Allergies None Documented Current medications: Home Medications (1) Active aspirin 81 mg oral tablet 81 mg = 1 Tab, Oral, BID , Medications (31) Active Scheduled: (5) aspirin EC 81 mg tab 81 mg 1 Tab, Oral, BID ceFAZolin 1 Gram, IV Piggyback, Q8HInt docusate sodium 100 mg cap 100 mg 1 Cap, Oral, BID tranexamic acid 1 Gram 10 mL, IV Piggyback, Pre Procedure tranexamic acid 1 Gram 10 mL, IV Piggyback, Post Procedure Continuous: (1) NaCl 0.9% 1,000 mL 1,000 mL, IntraVENous, 100 mL/Hr PRN: (25) acetaminophen 325 mg tab 650 mg 2 [...] tab 0.1 mg 1 Tab, Oral, Q4H fentaNYL 100 mcg/2 mL inj 25 mcg 0.5 mL, IV Push, Q5Min fentaNYL 100 mcg/2 mL inj 50 mcg 1 mL, IV Push, Q5Min HYDROmorphone 1 mg/1 mL inj 0.5 mg 0.5 mL, IV Push, Q10Min magnesium hydroxide 8% liq 30 mL 30 [...] PFO (patent foramen ovale) Urinary tract infection Histories Procedure history: right hip replacement. Back surgery. Right foot surgery. tubal ligation. repair of PFO. left hip replacement. Physical Examination VS/Measurements Vital Signs/Vital Measures 11/27/2019 21:15 EDT Systolic Blood Pressure 118 mmHg Diastolic Blood Pressure 60 mmHg Mean Arterial Pressure (MAP)-BMDI 76 Temperature Source Oral Temperature Mode Fahrenheit Temperature, Fahrenheit 97.4 Deg F Clinical Temperature, C 36.3 Deg C Heart Rate Monitored 91 bpm Oxygen Saturation 97 % 11/27/2019 18:21 EDT Systolic Blood Pressure 102 mmHg Diastolic Blood Pressure 72 mmHg Mean Arterial Pressure (MAP)-BMDI 80 Temperature Source Oral Temperature Mode Fahrenheit Temperature, Fahrenheit 97.4 Deg F Clinical Temperature, C 36.3 Deg C Heart Rate Monitored 96 bpm Respiratory Rate 14 Breaths/Min Oxygen Saturation 96 % Oxygen Therapy Mode Room air 11/27/2019 16:30 EDT Systolic Blood Pressure 103 mmHg Diastolic Blood Pressure 53 mmHg LOW Mean Arterial Pressure (MAP)-BMDI 68 Temperature Source Temporal artery scanning Temperature Mode Fahrenheit Temperature, Fahrenheit 97.8 Deg F Clinical Temperature, C 36.6 Deg C Heart Rate Monitored 92 bpm Respiratory Rate 17 Breaths/Min Oxygen Saturation 97 % Oxygen Therapy Mode Nasal cannula Oxygen Flow Rate 2 Liter/Min 11/27/2019 16:25 EDT Systolic Blood Pressure 93 mmHg Diastolic Blood Pressure 53 mmHg LOW Mean Arterial Pressure (MAP)-BMDI 68 Heart Rate Monitored 84 bpm Respiratory Rate 18 Breaths/Min Oxygen Saturation 98 % 11/27/2019 16:20 EDT Systolic Blood Pressure 101 mmHg Diastolic Blood Pressure 56 mmHg LOW Mean Arterial Pressure (MAP)-BMDI 69 Heart Rate Monitored 93 bpm Respiratory Rate 20 Breaths/Min Oxygen Saturation 97 % 11/27/2019 16:15 EDT Systolic Blood Pressure 104 mmHg Diastolic Blood Pressure 50 mmHg LOW Mean Arterial Pressure (MAP)-BMDI 70 Heart Rate Monitored 100 bpm Respiratory Rate 20 Breaths/Min Oxygen Saturation 97 % Oxygen Therapy Mode Nasal cannula Oxygen Flow Rate 2 Liter/Min 11/27/2019 16:10 EDT Systolic Blood Pressure 107 mmHg Diastolic Blood Pressure 52 mmHg LOW Mean Arterial Pressure (MAP)-BMDI 75 Heart Rate Monitored 93 bpm Respiratory Rate 18 Breaths/Min Oxygen Saturation 97 % 11/27/2019 16:05 EDT Systolic Blood Pressure 90 mmHg Diastolic Blood Pressure 62 mmHg Mean Arterial Pressure (MAP)-BMDI 58 Heart Rate Monitored 106 bpm HI Respiratory Rate 17 Breaths/Min Oxygen Saturation 92 % LOW 11/27/2019 16:00 EDT Systolic Blood Pressure 73 mmHg LOW Diastolic Blood Pressure 44 mmHg LOW Mean Arterial Pressure (MAP)-BMDI 57 Temperature Source Temporal artery scanning Temperature Mode Fahrenheit Temperature, Fahrenheit 98.5 Deg F Clinical Temperature, C 36.9 Deg C Heart Rate Monitored 91 bpm Respiratory Rate 16 Breaths/Min Oxygen Saturation 97 % Oxygen Therapy Mode Nasal cannula Oxygen Flow Rate 2 Liter/Min 11/27/2019 9:15 EDT Systolic Blood Pressure 131 mmHg Diastolic Blood Pressure 86 mmHg Mean Arterial Pressure (MAP)-BMDI 95 Temperature Source Oral Temperature Mode Fahrenheit Temperature, Fahrenheit 97.3 Deg F Clinical Temperature, C 36.3 Deg C Heart Rate Monitored 73 bpm Respiratory Rate 14 Breaths/Min Oxygen Saturation 98 % Oxygen Therapy Mode Room air 11/27/2019 9:00 EDT Heart Rate, Apical Not Done: Not Appropriate at this Time (Not Done) 11/27/2019 7:00 EDT Temperature Source Oral 11/27/2019 6:01 EDT Systolic Blood Pressure 125 mmHg Diastolic Blood Pressure 58 mmHg LOW Mean Arterial Pressure (MAP)-BMDI 75 Temperature Source Oral Temperature Mode Fahrenheit Temperature, Fahrenheit 98.1 Deg F Clinical Temperature, C 36.7 Deg C Heart Rate Monitored 73 bpm Respiratory Rate 20 Breaths/Min Oxygen Saturation 99 % 11/26/2019 22:00 EDT Oxygen Therapy Mode Room air General: Alert and oriented, No acute distress. Eye: Pupils are equal, round and reactive to light, Normal conjunctiva, Vision unchanged. HENT: Normocephalic, Tympanic membranes are clear, Normal hearing, Oral mucosa is moist, No pharyngeal erythema, No sinus tenderness. Neck: Supple, Non-tender, No carotid bruit, No jugular venous distention, No lymphadenopathy, No thyromegaly. Respiratory: Lungs are clear to auscultation, Respirations are non-labored, Breath sounds are equal, Symmetrical chest wall expansion, No chest wall tenderness. Cardiovascular: Normal rate, Regular rhythm, No murmur, No gallop, Good pulses equal in all extremities, Normal peripheral perfusion, No edema. Gastrointestinal: Soft, Non-tender, Non-distended, Normal bowel sounds, No organomegaly. Genitourinary: No costovertebral angle tenderness, No inguinal tenderness, No urethral discharge, No lesions. Lymphatics: No lymphadenopathy neck, axilla, groin. Musculoskeletal: Rt hip swelling & tender with movement. Integumentary: Warm, Ayr, Intact, No pallor, No rash. Neurologic: Alert, Oriented, Normal sensory, Normal motor function, No focal deficits, Cranial Nerves II-XII are grossly intact, Normal deep tendon reflexes. Psychiatric: Cooperative, Appropriate mood & affect, Normal judgment, Non-suicidal. Review / Management Results review: Lab results 11/27/2019 13:53 EDT Wound Culture See Result (In Progress) Fungus Culture See Result (In Progress) 11/27/2019 13:51 EDT Wound Culture See Result (In Progress) Fungus Culture See Result (In Progress) 11/27/2019 13:08 EDT Wound Culture See Result (In Progress) Fungus Culture See Result (In Progress) 11/27/2019 12:25 EDT ABO/Rh A POS Antibody Screen Negative ABSC 11/27/2019 3:57 EDT Sodium Level 141 mmol/L Potassium Level 3.8 mmol/L Chloride Level 107 mmol/L Carbon Dioxide Level 29 mmol/L Anion Gap 9 Glucose Level 89 mg/dL Blood Urea Nitrogen 8 mg/dL CREATININE 0.72 mg/dL eGFR >60 mL/min/1.73m2 eGFR NonAfrican >60 mL/min/1.73m2 Bun/Creatinine 11.1 Calcium Level 8.5 mg/dL Protein Total 6.1 Gram/dL LOW Albumin Level 3.2 Gram/dL LOW Globulin 2.9 Gram/dL A/G Ratio 1.1 Bilirubin Total 0.6 mg/dL Alk Phos 94 Units/Liter AST 21 Units/Liter ALT 22 Units/Liter WBC 5.5 K/uL RBC 4.41 Million/uL Hgb 13.8 Gram/dL Hct 42.1 % MCV 95.5 fL HI MCH 31.3 pg MCHC 32.8 Gram/dL Platelet Count 210 K/uL MPV 10.1 fL RDW 12.7 % Neut % 68.6 % Neut # 3.78 K/uL Lymph % 21.5 % Lymph # 1.18 K/uL Laurel % 8.0 % Laurel # 0.44 K/uL Eos % 1.3 % Eos # 0.07 K/uL Baso % 0.2 % Baso # 0.01 K/uL Slide Review No IG# 0 x10(3)/uL IG% 0 % . Impression and Plan Diagnosis Recurrent Right RTHA dislocation - Admitting, Medical. H/O: TIA 12/2013 - Admitting, Medical. Migraine - Admitting, Medical. GERD - Gastro-esophageal reflux disease - Admitting, Medical. PFO (patent foramen ovale) - Admitting, Medical. Course: Plan/ pain control , DVT prophylaxis with SCUDS, Hydration,regular diet ,NPO after MN, was notified . documented in this encounter Plan of Treatment Not on file documented as of this encounter Visit Diagnoses Not on filedocumented in this encounter
--- OUTSIDE RECORDS SUMMARY | 2025-06-19 10:15 | XMS_ITS | Encounter Summary ---
Author Organization [employer] ([place], [place], [place], [place], [place]) Address [address] [place] [id number] Care Team Providers Care Physician/Ophthalmologist Name Role Phone Unavailable Primary Care Provider Unavailabl e Encounter Details Date Type Department Care Team (Late st Contact Info) Description 11/27/2019 Transcribed Document [facility] [place] [facility] [place] [address] ProviderMaribel MD [address] [place] [address] Social History Tobacco Use Types Packs/Day Years Used Date Smoking Tobacco: Never Assessed Comments Unknown Sex and Gender Information Value Date Recorded Sex Assigned at Not on file Legal Sex Female 4:40 PM CDT Gender Identity Not on file Sexual Orientation Not on file documented as of this encounter Miscellaneous Notes * Cerner Conversion Note - Maribel Batista MD - 11/27/2019 2:56 PM CDT On Going Discharge Planning Entered On: 11/27/2019 14:56 EDT Performed On: 11/27/2019 14:56 EDT by JOHN HOLDEN RN-Hand Stone PolisherPediatric Physical Therapist Progress Note Discharge Arrangements : Patient Post-Acute Information Patient Name: SHANTELLE HANNAH Gender: Female : [birth year] Age: 64 Years No Post-Acute Placement(s) Listed No Post-Acute Service(s) Listed No [place] Referral(s) Listed Discharge Options Discussed with Patient : Discharge transportation, DME, Outpatient services Barriers to Discharge Identified : Clinical Condition of Patient, Follow-Up appointments needed Barriers to Discharge Unresolved : Clinical Condition of Patient JOHN HOLDEN RN-Hand Stone Polisher - 11/27/2019 14:56 EDT Electronically signed by Jacob [facility] Conversion Odd Jobs Day Worker Cerner at 11/22/2022 8:55 PM CDT documented in this encounter Plan of Treatment Not on file documented as of this encounter Visit Diagnoses Not on filedocumented in this encounter
--- OUTSIDE RECORDS SUMMARY | 2025-06-19 10:15 | XMS_ITS | Referral Summary ---
Author Organization [employer] ([place], [place], [place], [place], [place]) Address [address] [place] [id number] Care Team Providers Care Vertical Mill Operator Name Role Phone Unavailable Primary Care Provider Unavailabl e Social History Tobacco Use Types Packs/Day Years Used Date Smoking Tobacco: Never Assessed Comments Unknown Sex and Gender Information Value Date Recorded Sex Assigned at Not on file Legal Sex Female 4:40 PM CDT Gender Identity Not on file Sexual Orientation Not on file Plan of Treatment Not on file
--- OUTSIDE RECORDS SUMMARY | 2025-06-19 10:15 | XMS_ITS | Encounter Summary ---
Author Organization [employer] ([place], [place], [place], [place], [place]) Address [address] [place] [address] Care Team Providers Care Bottom Presser Name Role Phone Unavailable Primary Care Provider Unavailabl e Encounter Details Date Type Department Care Team (Late st Contact Info) Description 11/27/2019 Transcribed Document [facility] [place] Family Medicine [facility] [place] [address] ProviderMaribel MD [facility] [place] [address] Social History Tobacco Use Types Packs/Day Years Used Date Smoking Tobacco: Never Assessed Comments Unknown Sex and Gender Information Value Date Recorded Sex Assigned at Not on file Legal Sex Female 4:40 PM CDT Gender Identity Not on file Sexual Orientation Not on file documented as of this encounter Miscellaneous Notes * Cerner Conversion Note - Maribel ProviderMD - 11/27/2019 2:52 PM CDT Initial Discharge Planning Entered On: 11/27/2019 14:56 EDT Performed On: 11/27/2019 14:52 EDT by JOHN HOLDEN RN-Medicine Worker Initial Assessment I Previously Documented Living Environment : No qualifying data available. Living Situation : Home Patient Lives With : Spouse Emergency Contact #1 : Rose Creekfred Diaz Emergency Contact #1 Emergency Contact #1 Relationship : spouse Emergency Contact #2 : na Emergency Contact #2 Phone Number : na Emergency Contact #2 Relationship : JOHN Hitchcock RN-Medicine Worker - 11/27/2019 14:52 EDT Initial Assessment II Current Home Treatments and Equipment : JOHN Woodard RN-Medicine Worker - 11/27/2019 14:52 EDT Discharge Needs I Anticipated Discharge To, CM : Home with home health Current Home Treatment/Equipment : Current Home Treatment/Equipment No qualifying data available. Post Acute/Home Treatments : None Documentation Status Complete : Yes JOHN HOLDEN RN-Medicine Worker - 11/27/2019 14:52 EDT Discharge Needs II Professional Skilled Services : Professional Skilled Services No qualifying data available. Needs Assistance with Transportation : No Discharge Options Discussed with Patient : Discharge transportation, DME, Outpatient services JOHN HOLDEN RN-Medicine Worker - 11/27/2019 14:52 EDT Narrative Note Narrative Note : Patient admitted with right total hip dislocation. Ortho consulted, discussed with patient and spouse intervention options. Patient chose for revision of acetabular component. History of multiple surgeries in the past with same hip. Patient lives at home with spouse, iADLS prior to admission. Plan is to return home at [place] with Home Health anticipated. CM will continue to follow for more definitive plan, pending PT post op..........sds JOHN HOLDEN RN-Medicine Worker - 11/27/2019 14:52 EDT documented in this encounter Plan of Treatment Not on file documented as of this encounter Visit Diagnoses Not on filedocumented in this encounter
--- OUTSIDE RECORDS SUMMARY | 2025-06-19 10:15 | XMS_ITS | Encounter Summary ---
Author Organization [employer] ([place], [place], [place], [place], [place]) Address [address] [place] [address] Care Team Providers Care Production Shift Supervisor Name Role Phone Unavailable Primary Care Provider Unavailabl e Encounter Details Date Type Department Care Team (Late st Contact Info) Description 11/27/2019 Transcribed Document [facility] [place] Medicine [facility] [place] [address] ProviderMaribel MD [facility] [place] [address] Social History Tobacco Use Types Packs/Day Years Used Date Smoking Tobacco: Never Assessed Comments Unknown Sex and Gender Information Value Date Recorded Sex Assigned at Not on file Legal Sex Female 4:40 PM CDT Gender Identity Not on file Sexual Orientation Not on file documented as of this encounter Miscellaneous Notes * Cerner Conversion Note - Maribel ProviderMD - 11/27/2019 12:49 PM CDT BLESSING Main OR PACU Summary Primary Physician: JULIO STEWART MD-ORT Finalized Date/Time: 11/29/19 10:35:43 Pt. Name: SHANTELLE DIAZ ANTONIO Rodrigues/Sex: 1955 Female Med Rec #: [id number] Physician: GIOVANNY MONROE MD-INT Financial #: [id number] Pt. Type: I Room/Bed: [facility]/ Admit/Disch: 11/26/19 19:38:00 - Institution: [facility] Main OR PACU Case Times Entry 1 In PACU I 11/27/19 16:00:00 Ready for PACU 11/27/19 16:35:00 Discharge Discharge from PACU 11/27/19 16:35:00 I Last Modified By: Chika Jeronimo, CHOLO 11/27/19 16:35:41 [facility] Main OR PACU Case Times Audit 11/27/19 16:35:41 Supervisor [employer] Dietary Service: CATHY Modifier: [email or web address] [id number] <*> Ready for PACU Discharge 11/27/19 16:30:00 1 <+> Discharge from PACU I Finalized By: Quynh Covarrubias, Spot Welder Line-Nursing Document Signatures Signed By: Chika Jeronimo RN 11/27/19 16:35 Quynh Covarrubias, Spot Welder Line-Nursing 11/29/19 10:35 Unfinalized History Date/Time Username Reason for Unfinalizing Freetext Reason for Unfinalizing 11/29/19 10:35 [id number] Modify Pick List documented in this encounter Plan of Treatment Not on file documented as of this encounter Visit Diagnoses Not on filedocumented in this encounter
--- OUTSIDE RECORDS SUMMARY | 2025-06-19 10:15 | XMS_ITS | Encounter Summary ---
Author Organization [employer] ([place], [place], [place], [place], [place]) Address [address] [place] [address] Care Team Providers Care Take Away Man Name Role Phone Unavailable Primary Care Provider Unavailabl e Encounter Details Date Type Department Care Team (Late st Contact Info) Description 11/27/2019 Transcribed Document [facility] [place] Family Medicine [facility] [place] [address] ProviderMaribel MD [place] [address] Social History Tobacco Use Types Packs/Day Years Used Date Smoking Tobacco: Never Assessed Comments Unknown Sex and Gender Information Value Date Recorded Sex Assigned at Not on file Legal Sex Female 4:40 PM CDT Gender Identity Not on file Sexual Orientation Not on file documented as of this encounter Miscellaneous Notes * Cerner Conversion Note - Maribel ProviderMD - 11/27/2019 4:02 PM CDT Evaluation, Occupational Therapy Entered On: 11/28/2019 13:10 EDT Performed On: 11/28/2019 9:10 EDT by MATEUS HANSEN OTR/Lorena General Information, OT Visit Type, OT : Initial evaluation Patient Orders : Order Date Order Ordering 11/27/2019 16:02 OT Evaluation and Treatment Ordered By: JULIO STEWART MD-ORT Active Diagnoses : 11/27/2019 12:00 Atrial septal defect 11/27/2019 12:00 Gastro-esophageal reflux disease without esophagitis 11/27/2019 12:00 Personal history of other diseases of the nervous system and sense organs 11/27/2019 12:00 Personal history of transient ischemic attack (TIA), and cerebral infarction without residual deficits 11/27/2019 12:00 Unspecified dislocation of right hip, initial encounter Therapy Diagnosis, OT : Reduced mobility Onset of Problem, OT : 11/26/2019 EDT Admission Date : 11/26/2019 19:38 Personal Devices : Personal Devices Dentures, upper, Glasses Assistive Devices : Assistive Devices No Devices Recorded Precautions in Place : Fall prevention measures, Fall prevention measures, high risk, Hip precautions, posterior General Information Comment, OT : TTWB RLE; NO HIP FLEX >90 DEGREES, NO ER, NO EXT, ABD BRACE WHEN OOB IN ADDITION TO USUAL POSTERIOR HIP PRECAUTIONS MATEUS HANSEN OTR/L - 11/28/2019 12:53 EDT General Status Patient Received Status : Supine in bed Treatment Start Time : 11/28/2019 9:10 EDT Patient Left Status : Supine in bed, RN/PCT informed, Family/Visitors at bedside, All needs met and within reach, Other: RN present; bed alarm would not activate; RN notified RN/PCT Informed Comment : RN ok'ed to see Treatment End Time : 11/28/2019 9:47 EDT Treatment Time : 37 Minute(s) Actual Treatment Time : 37 Minute(s) MATEUS HANSEN OTR/L - 11/28/2019 12:53 EDT History and Environment, OT Living Situation, Therapy : Home Patient Lives With : Spouse Persons Assisting Patient at Home : Spouse Professional Skilled Services : None Persons Providing Information : Patient Home Equipment, Therapy : ADL Equipment, Lift, chair, Shower Equipment, Walker ADL Equipment : Aid, sock, Communication Analyst Shower Equipment : Shower Chair, with back Walker : Walker, front wheel Home Setup : One story Stairs : Yes Stair Location(s) : Outside Outside Stairs, Number of Steps : 2 Railing Outside : Yes Outside Railing Position : Right, going up MATEUS HANSEN OTR/L - 11/28/2019 12:53 EDT Prior LOF Bathing, OT : Independent Prior LOF Bed Mobility : Independent Prior LOF Upper Body Dressing, OT : Independent Prior LOF Lower Body Dressing, OT : Independent Prior LOF Toileting : Independent Prior LOF Transfer : Independent Prior LOF Grooming, OT : Independent MATEUS HANSEN OTR/L - 11/28/2019 12:53 EDT Prior LOF Assist with ADL Comment : Pt reports she was I with ADLs prior to this dislocation/admission MATEUS HANSEN OTR/L - 11/28/2019 12:53 EDT Upper Extremity Upper Extremity Dominance : Right Right UE Active ROM : WFL Right UE Strength : WFL Left UE Active ROM : WFL Left UE Strength : WFL Right UE Strength Comment : Grossly 4+/5 Left UE Strength Comment : Grossly 4+/5 Hand Drosophere Operator Test : WFL bilaterally Fine Motor Coordination Impaired : No MATEUS HANSEN OTR/Lorena - 11/28/2019 12:53 EDT Self Care/Home Management, OT Lower Body Dressing Assist Level, OT : Assist, maximal Lower Body Dressing Comment, OT : Donning socks MATEUS HANSEN OTR/Lorena 11/28/2019 12:53 EDT Functional Mobility Mobility Grid Supine to Sit : Rehab Moderate assistance (Comment: x 2 [MATEUS HANSEN OTR/L - 11/28/2019 12:53 EDT] ) Sit to Stand : Rehab Moderate assistance (Comment: x 2 [MATEUS HANSEN OTR/Lorena Malone 11/28/2019 12:53 EDT] ) Stand to Sit : Rehab Moderate assistance Sit to Supine : Rehab Maximal assistance (Comment: x 2 [MATEUS HANSEN OTR/Lorena 11/28/2019 12:53 EDT] ) MATEUS HANSEN OTR/L 11/28/2019 12:53 EDT Functional MobilityComment : TTWB RLE, NO FLEX >90 DEGREES, NO EXT, NO ER, HIP ABD BRACE WHEN OOB IN ADDITION TO POSTERIOR HIP PRECAUTIONS. Pt c/o severe dizziness/faintness after standing. She was returned to sitting EOB with CGA-SBA x 2. Pt continued to c/o feeling like I'm going to pass out . Pt returned to supine position; BP taken. Result was 58/31, Nsg notified. Taken again a few minutes afterward; result 57/36. Visitor, who is an RN with [employer] and who states is pt's goddaughter, was present throughout entire episode. MATEUS HANSEN OTR/L - 11/28/2019 12:53 EDT Activity Tolerance, OT Activity Comment : P act. tolerance; possibly affected by orthostatic hypotension MATEUS HANSEN OTR/Lorena 11/28/2019 12:53 EDT Neurological/Sensory Light Touch Response : Intact MATEUS HANSEN OTR/Lorena Malone 11/28/2019 12:53 EDT Cognition Assessment, OT Orientation : Oriented x 4 Cognition Assessment, OT : Intact MATEUS HANSEN OTR/Lorena Malone 11/28/2019 12:53 EDT Education OT Occupational Therapy Education Grid Activity of Daily Living Training : Verbalizes understanding Caregiver Training : Verbalizes understanding Functional Mobility Training : Verbalizes understanding, Returns demonstration Home Safety : Verbalizes understanding Positioning : Verbalizes understanding Precaution/Contraindication : Verbalizes understanding, Returns demonstration Role of Occupational Therapy : Verbalizes understanding MATEUS HANSEN OTR/L - 11/28/2019 12:53 EDT Teaching/Learning Assessment Barriers To Learning : Acuity of Illness Individuals Taught : Patient, Other: Goddaughter Readiness to Learn : Cooperative Baseline Knowledge of Topic : Limited Readiness to Learn : Demonstration, Explanation Learning Style Preferences Patient : None Learning Style Preferences Family : None MATEUS HANSEN OTR/L - 11/28/2019 12:53 EDT Indication Assessment, OT Occupational Therapy Indicated : Yes Problem List, OT : Impaired, bed mobility, Impaired, activities daily living, Impaired, endurance tolerance, Impaired functional mobility, Impaired, muscle tone, Impaired, standing balance, Impaired, strength, Impaired, transfers Potential Barriers, OT : Acuity of illness, Desire/Motivation, Fatigue, Knowledge/education, Pain, Patient compliance Rehabilitation Potential, OT : Fair MATEUS HANSEN OTR/L 11/28/2019 12:53 EDT Plan of Care, OT OT Tx Plan/Goals Established w Patient : Yes OT Frequency Rehab : Other: 3-5x/wk Other OT Treatment Provided This Date : Self care: lengthy pt, caregiver instruction provided re: ADL performance, safety, home safety, TTWB RLE, abd. brace, posterior and additional hip precautions Eval=8 min Self care=29 min OT Duration Rehab : Fourteen days OT Treatments Planned : Activities of daily living, Caregiver training, Functional mobility training, Neuromuscular reeducation, Safety education, Therapeutic activities, Therapeutic exercises MATEUS HANSEN OTR/L - 11/28/2019 12:53 EDT Hvac Technician Residential Goals, OT Other LTG Grid Goal #1 Goal #2 Goal : Perform functional supine to sit transfer with min A x 2 Perform ADL transfer with mod A x 2 Date to Meet : 12/12/2019 EDT 12/12/2019 EDT Goal Status : Initial goal Initial goal MATEUS HANSEN OTR/L - 11/28/2019 12:53 EDT MATEUS HANSEN OTR/L - 11/28/2019 12:53 EDT Pain Assessment Pain Scaled Used : 0-10 Pain scale Pain Score Pre-Intervention : 0 MATEUS HANSEN OTR/Lorena - 11/28/2019 12:53 EDT Image 1 - Images currently included in the form version of this document have not been included in the text rendition version of the form. [place] OT Charges OT Selfcare/Hm Mgmt Ea 15 Min : 2 OT Eval High Complexity : 1 MATEUS HANSEN OTR/Lorena - 11/28/2019 12:53 EDT documented in this encounter Plan of Treatment Not on file documented as of this encounter Visit Diagnoses Not on filedocumented in this encounter
--- OUTSIDE RECORDS SUMMARY | 2025-06-19 10:15 | XMS_ITS | Encounter Summary ---
Author Organization [employer] ([place], [place], [place], [place], [place]) Address [address] [place] [address] Care Team Providers Care Vice President For Philanthropy Name Role Phone Unavailable Primary Care Provider Unavailabl e Encounter Details Date Type Department Care Team (Late st Contact Info) Description 11/30/2019 Transcribed Document [facility] [place] Family Medicine [facility] [place] [address] ProviderMaribel MD [facility] [place] [address] Social History Tobacco Use Types Packs/Day Years Used Date Smoking Tobacco: Never Assessed Comments Unknown Sex and Gender Information Value Date Recorded Sex Assigned at Not on file Legal Sex Female 4:40 PM CDT Gender Identity Not on file Sexual Orientation Not on file documented as of this encounter Miscellaneous Notes * Cerner Conversion Note - Maribel Batista MD - 11/30/2019 10:25 AM CDT Patient: SHANTELLE DIAZ Age: 64 Years Sex: Female : 1955 Subjective Patient seen and examined. No acute events overnight. 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 S73.004A, Unspecified dislocation of right hip, initial encounter S73.004A, Unspecified dislocation of right hip, initial encounter S73.004A Status post right total hip arthroplasty revision Z96.641 Medications Inpatient acetaminophen-HYDROcodone 325 mg-5 mg oral [...] phosphate sodium phosphate tranexamic acid tranexamic acid Transderm-Scop 1.5 mg [...] 1 Tab, Oral, BID Labs Results NOV 29 04:16 143 H 113 12 / 86 4.2 25 0.65 \ NOV 29 04:16 \ L 10.4 / 5.6 163 / L 32.0 \ Anion Gap: 9 Calcium Level: 8.2 mg/dL Low Imaging Results (Last 24 Hours) No Radiology Results Found Problem List/Past Medical History Ongoing Confusion GERD [...] replacement, tubal ligation. Allergies No Known Allergies [1] Surgical Progress Note; JULIO STEWART MD-ORT 11/29/2019 09:07 EDT documented in this encounter Plan of Treatment Not on file documented as of this encounter Visit Diagnoses Not on filedocumented in this encounter
--- OUTSIDE RECORDS SUMMARY | 2025-06-19 10:15 | XMS_ITS | Clinical Summary ---
Author Organization [employer] ([place], [place], [place], [place], [place]) Address [address] [place] [address] Care Team Providers Care Can Sealer Name Role Phone Unavailable Primary Care Provider [...]
--- OUTSIDE RECORDS SUMMARY | 2025-06-19 10:16 | XMS_ITS | Encounter Summary ---
Author Organization [employer] ([place], [place], [place], [place], [place]) Address [address] [place] [address] Care Team Providers Care Risk Control Field Representative Name Role Phone Unavailable Primary Care Provider Unavailabl e Encounter Details Date Type Department Care Team (Late st Contact Info) Description 11/28/2019 Transcribed Document [facility] [place] Family Medicine [facility] [place] [address] ProviderMaribel MD [address] [place] [address] Social History Tobacco Use Types Packs/Day Years Used Date Smoking Tobacco: Never Assessed Comments Unknown Sex and Gender Information Value Date Recorded Sex Assigned at Not on file Legal Sex Female 4:40 PM CDT Gender Identity Not on file Sexual Orientation Not on file documented as of this encounter Miscellaneous Notes * Cerner Conversion Note - Maribel Batista MD - 11/28/2019 12:01 PM CDT Patient: SHANTELLE DIAZ Age: 64 Years Sex: Female : 1955 Subjective Patient seen and examined. No acute events overnight. episode of orthostatic hypotension this AM Intake & Output Intake & Output Totals Last 24 Hours (7a-7a) Intake (5 Events) Medications (150 mL) Surgical Services Intake (2100 mL) Output (3 Events) Blood Loss (400 mL) Koo Catheter (1600 mL) Input Total: 2250 mL Output Total: 2000 mL Balance: 250 mL Vital Signs T: 36.3 ??C TMIN: 36.3 ??C TMAX: 36.9 ??C HR: 97(Monitored) RR: 16 BP: 91/50 SpO2: 99% Physical Exam RLE: Dressing c/d/i [...] bed, Continuous Order (GIOVANNY MONROE) Assessment/Plan POD #1 s/p revision R ARLYN acetabular component. -TTWB RLE, hip abduction brace when OOB -Pain control -DVT ppx -PT/OT -OOB -Likely Dispo rehab -? covid testing to enable d/c to rehab -hgb stable at 11 but orthostatic hypotension getting fluid bolus will monitor -d/c koo -2 weeks of oral abx post op due to revision surgery GERD - Gastro-esophageal reflux disease K21.9 H/O: TIA 12/2013 Z86.73 migraine Z86.69 PFO (patent foramen ovale) Q21.1 Recurrent Right RTHA dislocation S73.004A, Unspecified dislocation of right hip, initial encounter S73.004A, Unspecified dislocation of right hip, initial encounter S73.004A Orders: aspirin, 81 mg, Oral, EC Tab, BID, Routine, Start 11/29/19 9:00:00 EDT Advance Diet Instructions to Nursing BMP Basic Metabolic Panel CBC w/ Auto Diff Communication to Nursing Communication to Nursing Consult to Case Management Convert IV to Saline Lock Culture AFB and Stain Culture AFB and Stain Culture AFB and Stain Culture Anaerobic Culture Anaerobic Culture Anaerobic Culture Fungus Culture Fungus Culture Fungus Culture Wound and Stain Culture Wound and Stain Culture Wound and Stain Diet, Adult Immobilizer Brace Splint Lower Extremity Incentive Spirometry (Nursing) Intake and Output Neurovascular Assessment Lower Extremity Neurovascular Assessment Lower Extremity Notify Provider Intake and Output Notify Provider of Change in Patient Condition Notify Provider Vital Signs OT Evaluation and Treatment Oxygen Therapy Pathology Tissue Request PT Treatment Instructions PT Treatment Instructions PT Treatment Instructions PT Treatment Instructions PT Treatment Instructions Resuscitation Status SENDOUT REPORT Sequential Compression Device Trapeze Vital Signs Weight Bearing Status Medications Inpatient acetaminophen-HYDROcodone 325 mg-5 mg oral [...] Colace, 100 mg= 1 Cap, Oral, BID Dulcolax [...] oral suspension, 30 mL, Oral, Daily, PRN NaCl 0.9% bolus, 500 mL, IV Piggyback, 1-Time NaCl 0.9% bolus, 250 mL, IV Piggyback, 1-Time potassium chloride 10 mEq/50 mL intravenous solution, 10 mEq= 100 mL, IV Piggyback, Q1H, PRN potassium chloride 20 mEq oral tablet, extended release, 20 mEq= 1 Tab, Oral, Q2H, PRN potassium chloride 20 mEq oral tablet, extended release, 60 mEq= 3 Tab, Oral, Q2H, PRN Restoril, 15 mg= 1 Cap, Oral, At Bedtime, PRN Sodium Chloride 0.9% bolus, 500 mL, IV Piggyback, 1-Time Sodium Chloride 0.9% bolus, 500 mL, IV Piggyback, 1-Time Sodium Chloride 0.9% intravenous solution 1,000 mL, 1000 mL, IntraVENous Sodium Chloride 0.9% intravenous solution 1,000 mL, [...] / 105 4.9 26 0.77 \ NOV 27 04:51 \ 11.6 / 9.3 168 / 35.2 \ Anion Gap: 10 Calcium Level: 8.1 mg/dL Low Imaging Results (Last 24 Hours) Radiology Results (Last 48 hours) [id number] -- 11/26/2019 19:38 CR Fluoro in OR [...] replacement, tubal ligation. Allergies No Known Allergies documented in this encounter Plan of Treatment Not on file documented as of this encounter Visit Diagnoses Not on filedocumented in this encounter
--- OUTSIDE RECORDS SUMMARY | 2025-06-19 10:17 | XMS_ITS | Encounter Summary ---
Author Organization [employer] ([place], [place], [place], [place], [place]) Address [address] [place] [address] Care Team Providers Care Parcel Post Carrier Name Role Phone Unavailable Primary Care Provider Unavailabl e Encounter Details Date Type Department Care Team (Late st Contact Info) Description 11/28/2019 Transcribed Document [facility] [place] [facility] [place] [address] ProviderMaribel MD [place] [address] Social History Tobacco Use Types Packs/Day Years Used Date Smoking Tobacco: Never Assessed Comments Unknown Sex and Gender Information Value Date Recorded Sex Assigned at Not on file Legal Sex Female 4:40 PM CDT Gender Identity Not on file Sexual Orientation Not on file documented as of this encounter Miscellaneous Notes * Cerner Conversion Note - Maribel ProviderMD - 11/28/2019 11:24 AM CDT Treatment Intervention, PT Entered On: 11/30/2019 13:27 EDT Performed On: 11/30/2019 10:58 EDT by PB KNOX, PT General Information, PT Visit Type, PT : Treatment Note Patient Orders : Order Date Order Ordering 11/27/2019 16:02 PT Evaluation and Treatment Ordered By: JULIO STEWART MD-ORT 11/27/2019 16:02 PT Treatment Instructions Ordered By: JULIO STEWART MD-ORT 11/27/2019 16:02 PT Treatment Instructions Ordered By: JULIO STEWART MD-ORT 11/27/2019 16:02 PT Treatment Instructions Ordered By: JULIO STEWART MD-ORT 11/27/2019 16:02 PT Treatment Instructions Ordered By: JULIO STEWART MD-ORT 11/27/2019 16:02 PT Treatment Instructions Ordered By: JULIO STEWART MD-ORT 11/28/2019 11:24 PT Additional Treatment Ordered By: RIGO ROOT, PT Active Diagnoses : 11/28/2019 12:00 Presence of right artificial hip joint 11/27/2019 12:00 Atrial septal defect 11/27/2019 12:00 Gastro-esophageal reflux disease without esophagitis 11/27/2019 12:00 Personal history of other diseases of the nervous system and sense organs 11/27/2019 12:00 Personal history of transient ischemic attack (TIA), and cerebral infarction without residual deficits 11/27/2019 12:00 Unspecified dislocation of right hip, initial encounter Therapy Diagnosis, PT : aftercare following R ARLYN revision Admission Date : 11/26/2019 19:38 Personal Devices : Personal Devices Dentures, upper, Glasses Assistive Devices : Assistive Devices No Devices Recorded Precautions in Place : Fall prevention measures, Fall prevention measures, high risk, Hip precautions, posterior, Other: no external rotation or extension PB KNOX, PT - 11/30/2019 13:20 EDT General Status Patient Received Status : Supine in bed, Other: Treatment Start Time : 11/30/2019 10:43 EDT Patient Left Status : Up in chair, Communication board completed, All needs met and within reach RN/PCT Informed Comment : RN ok'd PT Treatment End Time : 11/30/2019 10:58 EDT Treatment Time : 15 Minute(s) PB KNOX, PT - 11/30/2019 13:20 EDT Edu Topics Physical Therapy Education Grid Gait Training : Verbalizes understanding, Needs further teaching Role of Physical Therapy : Verbalizes understanding, Needs further teaching Safety : Verbalizes understanding, Needs further teaching Transfer Training : Verbalizes understanding, Needs further teaching Use of Assistive Device : Verbalizes understanding, Needs further teaching PB KNOX, PT - 11/30/2019 13:20 EDT Plan of Care, PT PT Tx Plan/Goals Established w Patient : Yes PB KNOX, PT - 11/30/2019 13:20 EDT Cryogenic Transport Driver Goals Other PT LTG Grid Goal #1 [...] 12/12/2019 EDT 12/12/2019 EDT Goal Status : Progressing, continue Goal met Goal met Initial goal PB KNOX, PT - 11/30/2019 13:20 EDT PB KNOX, PT - 11/30/2019 13:20 EDT PB KNOX, PT - 11/30/2019 13:20 EDT PB KNOX, PT - 11/30/2019 13:20 EDT Treatment Note Subjective Comment : Pt agreeable to PT Patient's Response to Treatment : Good Additional Objective Information : -supine to sit: CGA -sit to stand: CGA with cues for safe technique with RWx and TTWB -stand to sit: min assist, stood for about 30 secs before gait to ensure no dizziness -gait: CGA with RWx and gait belt, TTWB, 40ft -cues for safe use of RWx, posture, and maintaining WBing status Assessment : Pt able to make good progress with gait and functional tasks this session. Two goals met so far and new gait goal added. Plan for Treatment : continue POC PB KNOX, PT - 11/30/2019 13:20 EDT Pain Assessment Pain Scaled Used : 0-10 Pain scale Pain Score Pre-Intervention : 5 Pain Score During-Intervention : 5 Pain Score Post-Intervention. : 5 Duration : 15 mins Pain Comment : R hip pain, RN aware PB KNOX, PT - 11/30/2019 13:20 EDT Image 1 - Images currently included in the form version of this document have not been included in the text rendition version of the form. [place] PT Charges Gait Training Each 15 Min : 1 PB KNOX, PT - 11/30/2019 13:20 EDT documented in this encounter Plan of Treatment Not on file documented as of this encounter Visit Diagnoses Not on filedocumented in this encounter
--- OUTSIDE RECORDS SUMMARY | 2025-06-19 10:17 | XMS_ITS | Encounter Summary ---
Author Organization [employer] ([place], [place], [place], [place], [place]) Address [address] [place] [address] Care Team Providers Care Legal Writing Professor Name Role Phone Unavailable Primary Care Provider Unavailabl e Encounter Details Date Type Department Care Team (Late st Contact Info) Description 11/29/2019 Transcribed Document [facility] [place] [address] [place] [address] ProviderMaribel MD [facility] [place] [address] Social History Tobacco Use Types Packs/Day Years Used Date Smoking Tobacco: Never Assessed Comments Unknown Sex and Gender Information Value Date Recorded Sex Assigned at Not on file Legal Sex Female 4:40 PM CDT Gender Identity Not on file Sexual Orientation Not on file documented as of this encounter Miscellaneous Notes * Cerner Conversion Note - Historical ProviderMD - 11/29/2019 4:08 PM CDT Event Note Entered On: 11/29/2019 16:08 EDT Performed On: 11/29/2019 16:08 EDT by Sissy Parker RN Event Note Event Date/Time : 11/29/2019 16:08 EDT Description of Event : Received report from Linda Dia RN. Agree with all previous documentation . Sissy Parker RN - 11/29/2019 16:08 EDT documented in this encounter Plan of Treatment Not on file documented as of this encounter Visit Diagnoses Not on filedocumented in this encounter
== END 2025-06-19 23:59 | disposition home or self-care (01) ==
LOC: RAD 10:11
PROVIDERS: PCP Family Medicine; Visit Provider Family Medicine
DX: Z12.31 Encounter for screening mammogram for malignant neoplasm of breast (principal)
CPT/HCPCS: 77063; 77067